=== PATIENT | female | born 1985 | race Caucasian/White ===

== ENCOUNTER 2017-12-05 06:55 | Inpatient (IN) | payer OTHER, SELFPAY ==
[2017-12-05 07:31] VITALS: BMI 29.5
[2017-12-05] MEDS: Lactated Ringers 1,000 ML 50 ML IV ×3 (07:35→14:35)
[2017-12-05] MEDS: Oxytocin 30 units/NS 500 ml 30 UNITS/500 ML IV.SOLN IV (07:45)
[2017-12-05 08:18] LABS: Hemoglobin 10.4 g/dl (12.0-15.0); Mean Corp Hgb Conc 31.5 g/gl (32-36); Mean Corpuscular Hgb 27.3 pg (27.0-32.0); Mean Corpuscular Volume 86.6 fL (81-99); Mean Platelet Vol. 10.4 fl (6.2-12.0); Platelet Count 201 K/mm3 (150-450); RBC Distribution Width CV 14.3 % (11.6-14.6); RBC Distribution Width SD 44.7 fl (35.1-43.9); Red Blood Count 3.81 M/mm3 (4.2-5.4); White Blood Count 7.1 K/mm3 (4.4-11.0)
[2017-12-05 08:23] LABS: Scan Indicated on CBC? Y/N NO
--- NOTE | 2017-12-05 11:38 | PCM.HP.OB ---
History Date of Admission: 12/05/17 Final RODGER: 12/07/17 Final RODGER Source: US <20 weeks Gestational age: 39 Weeks and 5 Days Pertinent Past Medical History: Past medical history: Necrotizing enterocolitis in Chronic diarrhea Surgical history: Bowel surgery as an after her necrotizing enterocolitis Obstetrical history: 3 previous full-term spontaneous vaginal deliveries without complication Allergies cephalexin [From Keflex] Allergy (Verified 12/05/17 07:34) Rash Current Medications Acetaminophen (Tylenol) 325 - 650 mg PO Q4H PRN PRN PRN Reason: PAIN OR FEVER >100.4F Al Hydroxide/Mg Hydroxide (Mylanta Ii) 15 - 30 ml PO Q4H PRN PRN PRN Reason: INDIGESTION Citric Acid/Sodium Citrate (Bicitra) 30 ml PO UD PRN Lactated Ringer's () 1,000 mls @ 50 mls/hr IV .Q20H [facility] Last Admin: 12/05/17 07:35 Dose: 50 mls/hr Oxytocin/Sodium Chloride () 30 units in 500 mls @ 1 mls/hr IV .Q500H [facility] Last Admin: 12/05/17 07:45 Dose: 1 mls/hr Nalbuphine HCl (Nubain) 5 - 10 mg IV Q3H PRN PRN PRN Reason: PAIN (4-10/10) Ondansetron HCl (Zofran) 4 mg IV Q8H PRN PRN PRN Reason: NAUSEA Promethazine HCl (Phenergan (Ll)) 6.25 - 12.5 mg IV Q4H PRN PRN; Protocol PRN Reason: IF NAUSEA PERSISTS Sodium Chloride () 5 - 15 ml IV UD [facility] Last Admin: 12/05/17 10:23 Dose: Not Given Smoking Status: Former smoker Alcohol: None Drug Use: none Number of Fetus(es): 1 Review of Systems Constitutional: Denies: Chills, Fever Eyes: Denies: Blurred vision Cardiovascular: Denies: Chest Pain Respiratory: Denies: Cough Skin: Reports: Rash - resolving Physical Exam General: Alert, Cooperative, No apparent distress Cardiovascular: Regular rate Lungs: Normal air movement Abdomen: Soft, Non Tender, Non-Distended, Gravid Extremities:: No edema Estimated gestational size: Appropriate for gestational size Presentation: Cephalic Cervix Dilation (cm): 2 - arom w/ small clear fluid Station: -1 Effacement (%): 80 Assessment/Plan The 2-year-old 4 para 3 at 39-5/7 weeks gestation for elective induction of labor. 1. Risks benefits and alternatives to induction been discussed with the patient, her questions were answered to her satisfaction, and she desires to proceed. Consent was signed. 2. Estimated weight is less than 4500 g the pelvis is clinically adequate to expect vaginal delivery 3. May have epidural, nitrous oxide, or Nubain as needed for pain control
--- NOTE | 2017-12-05 11:49 | HP.PCM_ITS ---
History Date of Admission: 12/05/17 Final RODGER: 12/07/17 Final RODGER Source: US <20 weeks Gestational age: 39 Weeks and 5 Days Pertinent Past Medical History: Past medical history: Necrotizing enterocolitis in Chronic diarrhea Surgical history: Bowel surgery as an after her necrotizing enterocolitis Obstetrical history: 3 previous full-term spontaneous vaginal deliveries without complication Allergies cephalexin [From Keflex] Allergy (Verified 12/05/17 07:34) Rash Current Medications Acetaminophen (Tylenol) 325 - 650 mg PO Q4H PRN PRN PRN Reason: PAIN OR FEVER >100.4F Al Hydroxide/Mg Hydroxide (Mylanta Ii) 15 - 30 ml PO Q4H PRN PRN PRN Reason: INDIGESTION Citric Acid/Sodium Citrate (Bicitra) 30 ml PO UD PRN Lactated Ringer's () 1,000 mls @ 50 mls/hr IV .Q20H [facility] Last Admin: 12/05/17 07:35 Dose: 50 mls/hr Oxytocin/Sodium Chloride () 30 units in 500 mls @ 1 mls/hr IV .Q500H [facility] Last Admin: 12/05/17 07:45 Dose: 1 mls/hr Nalbuphine HCl (Nubain) 5 - 10 mg IV Q3H PRN PRN PRN Reason: PAIN (4-10/10) Ondansetron HCl (Zofran) 4 mg IV Q8H PRN PRN PRN Reason: NAUSEA Promethazine HCl (Phenergan (Ll)) 6.25 - 12.5 mg IV Q4H PRN PRN; Protocol PRN Reason: IF NAUSEA PERSISTS Sodium Chloride () 5 - 15 ml IV UD [facility] Last Admin: 12/05/17 10:23 Dose: Not Given Smoking Status: Former smoker Alcohol: None Drug Use: none Number of Fetus(es): 1 Review of Systems Constitutional: Denies: Chills, Fever Eyes: Denies: Blurred vision Cardiovascular: Denies: Chest Pain Respiratory: Denies: Cough Skin: Reports: Rash - resolving Physical Exam General: Alert, Cooperative, No apparent distress Cardiovascular: Regular rate Lungs: Normal air movement Abdomen: Soft, Non Tender, Non-Distended, Gravid Extremities:: No edema Estimated gestational size: Appropriate for gestational size Presentation: Cephalic Cervix Dilation (cm): 2 - arom w/ small clear fluid Station: -1 Effacement (%): 80 Assessment/Plan The 2-year-old 4 para 3 at 39-5/7 weeks gestation for elective induction of labor. 1. Risks benefits and alternatives to induction been discussed with the patient , her questions were answered to her satisfaction, and she desires to proceed. Consent was signed. 2. Estimated weight is less than 4500 g the pelvis is clinically adequate to expect vaginal delivery 3. May have epidural, nitrous oxide, or Nubain as needed for pain control
[2017-12-05] MEDS: fentaNYL-bupivacaine (epidural) 100 ML BAG EPIDURAL (14:25)
[2017-12-05] MEDS: Oxytocin 30 units/NS 500 ml 30 UNITS/500 ML IV.SOLN 334 UNITS IV (19:02)
--- NOTE | 2017-12-05 19:18 | PCM.OB.VAG ---
Vaginal Delivery Maternal Presentation: Elective Induction Method of Induction: Pitocin, Amniotomy Amniotic Membrane Rupture Type: Artificial Amniotic Fluid Description: Clear Final RODGER: 12/07/17 Final RODGER Source: US <20 weeks Gestational age: 39 Weeks and 5 Days Date of Procedure: 12/05/17 Pre-Operative Diagnosis: labor Post-Operative Diagnosis: same Surgery/ Procedure Performed: Spontaneous Vaginal Delivery Anesthesiologist: Gumaro Del Rio Type of Anesthesia: Epidural Description of Procedure: A vigorous female was delivered LEMUEL over intact perineum. The remainder the infant was delivered with maternal pushing and gentle traction only in less than 15 seconds. The Pitocin infusion was initiated for active management of the third stage. The cord was clamped and cut after 1 minute. The infant was attended to by the waiting nursing staff. The placenta was delivered spontaneously and intact. The cervix and vagina were intact. Sponge and needle counts were correct. A vaginal sweep was completed by me. Presentation: LEMUEL Placental Delivery Description: Spontaneous Placenta Disposition: [facility] Cord Vessel Description: 3 Vessels Cord Entanglement: None Drain: Uriostegui to straight drain Estimated Blood Loss: 200cc Infant A gender: Female (1 minute): 9 (5 minute): 9 Episiotomy Description: None Laceration: None Medications given after delivery: IV Pitocin Complications: None
--- NOTE | 2017-12-05 19:22 | DCINST_ITS ---
Discharge Diet: No Restrictions Discharge Activity: Return to Normal Activity, May not drive while taking narcotic pain medications., May Shower May resume sexual activity in: 4-6 weeks Additional Activity Instructions:: Nothing in the vagina for 4-6 weeks. You may return to work/school in 6 weeks. Call your doctor if your incision/area has: Continuous Slow Oozing, Sudden Increased Bleeding, Increased Pain/ Swelling, Increased Redness, Foul Smelling Discharge Additional Instructions: If you experience any of the following, contact your healthcare provider. * Bleeding that soaks a pad every hour for 2 hours * Fever 100.4 or higher * Unrelieved incision or abdominal pain * Swelling, redness, discharge or bleeding from your incision or episiotomy site * Your incision begins to separate * Problems urinating (including inability to urinate or burning while urinating) . * Visual changes * Severe headache * Flu-like symptoms * Pain or redness in one of both of your breasts * Pain, warmth, tenderness or swelling in your legs, especially the calf area * Frequent nausea and vomiting * Symptoms of depression or anxiety If you experience any of the following, call 911 or go to the nearest Emergency Room. * Chest pain * Problems breathing * Seizure activity * Partial or complete paralysis of a body part, slurred speech, weakness or drooping of the face, or a sudden inability to walk or hold your balance Allergies/Adverse Reactions: Allergies cephalexin [From Keflex] Allergy (Verified 12/05/17 07:34) Rash Medications to take at Discharge Vits [Prenatabs FA ] 1 tablet PO DAILY 04/15/15 Amoxicillin/Potassium Clav [Amox-Clav 875-125 mg Tablet] 12/05/17 Ibuprofen [Motrin] 600 mg PO Q6H PRN #60 tab 12/05/17 The following prescriptions were given: Ibuprofen [Motrin] 600 mg PO Q6H PRN #60 tab PRN Reason: Pain Please Follow Up With: Daina Kauffman MD - [phone] When: Call to make an appointment with your doctor in 6 weeks. If you had elevated Blood Pressure or 4th degree laceration you will need to be seen in 2 weeks. Primary Care Physician: Care Physician,No Primary [Primary Care Provider] -
[2017-12-05] MEDS: Oxytocin 30 units/NS 500 ml 30 UNITS/500 ML IV.SOLN 167 UNITS IV (19:32)
[2017-12-05] MEDS: Amox/Clavulanate 875 MG Tablet PO (21:56)
[2017-12-05 22:00] VITALS: BP 109/56; PULSE 82; RESP 18; TEMP 37.3
[2017-12-06] MEDS: Naproxen 250 MG Tablet PO ×3 (00:22→17:49)
[2017-12-06 04:00] VITALS: BP 102/61; PULSE 64; RESP 18; TEMP 37.1
[2017-12-06 07:55] VITALS: BP 107/64; PULSE 64; RESP 16; TEMP 37.4
[2017-12-06] MEDS: Amox/Clavulanate 875 MG Tablet PO ×2 (09:48→21:09)
--- NOTE | 2017-12-06 12:36 | PCM.PN.OB ---
Subjective: Doing well per patient in nursing staff. without issues. Ambulating and taking PO without difficulty. Voiding and having BM. Denies headache, visual changes, chest pain, shortness of breath, leg pain, increased vaginal bleeding or blood clots. Planning D/C home today. - Physical Exam General: Alert Lungs: Clear to auscultation, No rhonchi, No wheeze Cardiovascular: Regular rate, Regular Rhythm, No murmurs Abdomen: Bowel Sounds Present, - - Fundus firm 2 below U Extremities: - - Nolberto's negative Psych/Mental Status: Normal Affect, Appropriate Vital Signs Temp Pulse Resp BP 99.4 F H 64 16 107/64 12/06/17 07:55 12/06/17 07:55 12/06/17 07:55 12/06/17 07:55 Oxygen Delivery Method Room Air Weight: 183 lb Body Mass Index (BMI) 29.5 Intake and Output for Last 24 Hours 12/04/17 12/05/17 12/06/17 23:59 23:59 23:59 Intake Total 3506 / 3506 Output Total 900 / 900 Balance 2606 / 2606 Medical Necessity - Tobacco Use Smoking Status: Former smoker Assessment/Plan A: PPD#1 P: 1) Discharge and instructions given 2) D/C home today 3) Follow up in 6 weeks
[2017-12-06 13:00] VITALS: BP 104/72; PULSE 72; RESP 16; TEMP 37.2
[2017-12-06 17:00] VITALS: BP 107/53; PULSE 63; RESP 16; TEMP 37.3
[2017-12-06 20:00] VITALS: BP 105/62; PULSE 65; RESP 18; TEMP 36.7
[2017-12-06] MEDS: Acetaminophen 500 MG Tablet 1000 MG PO (21:09)
[2017-12-07] MEDS: Naproxen 250 MG Tablet PO (02:25)
[2017-12-07 03:08] VITALS: BP 118/68; PULSE 88; RESP 18; TEMP 36.7
[2017-12-07] MEDS: Acetaminophen 500 MG Tablet 1000 MG PO (08:09)
--- NOTE | 2017-12-07 08:12 | PCM.PN.OB ---
Subjective: pain well controlled, average lochia - Physical Exam General: Alert, Cooperative, No apparent distress Abdomen: Soft, Non-Distended Vital Signs Temp Pulse Resp BP 98.0 F 88 18 118/68 12/07/17 03:08 12/07/17 03:08 12/07/17 03:08 12/07/17 03:08 Oxygen Delivery Method Room Air Weight: 83.007 kg Body Mass Index (BMI) 29.5 Intake and Output for Last 24 Hours 12/05/17 12/06/17 12/07/17 23:59 23:59 23:59 Intake Total 3506 / 3506 Output Total 900 / 900 Balance 2606 / 2606 Medical Necessity - Tobacco Use Smoking Status: Former smoker Assessment/Plan PPD#2 doing well ready for d/c infant
[2017-12-07 08:28] VITALS: BP 102/64; PULSE 60; RESP 16; TEMP 37.2; O2SAT 98
== END 2017-12-07 09:35 | disposition home or self-care (01) | DRG 775 ==
PROVIDERS: Admitting Provider Obstetrics & Gynecology; Visit Provider Obstetrics & Gynecology
DX: O80 Encounter for full-term uncomplicated delivery (principal); Z37.0 Single live birth; Z87.891 Personal history of nicotine dependence; Z3A.39 39 weeks gestation of pregnancy
CPT/HCPCS: 59025; 59050; 85027; 86850; 86900; J7120

== ENCOUNTER 2020-08-23 13:25 | Day surgery (SDC) | payer OTHER, SELFPAY ==
[2019-07-29 13:31] VITALS: BMI 25.6
--- NOTE | 2020-08-21 16:26 | HP.PCM_ITS ---
History and Physical Date of Admission: 08/23/20 HPI: The patient is a 34 year old female presenting for pre-operative visit. She is scheduled for?Hysteroscopy D&C, for?menorrhagia on?08/23/20. ??Procedure discussed along with risks, benefits and complications. ?Other alternatives discussed for management. Consent form signed??Yes.? PAST MEDICAL HISTORY PAST MEDICAL HISTORY Diagnosis Date ? Anemia ? ? Chronic diarrhea ? ? ?attributed to bowel surgery in infancy. ? ? Necrotizing enterocolitis in 1986 ? ? PAST SURGICAL HISTORY PAST SURGICAL HISTORY Procedure Laterality Date ? PAST SURGICAL HISTORY OF ? 1986 ? BOWEL SURG INFANT, she had NEC ? ? CURRENT MEDICATIONS Current Outpatient Medications Medication Sig Dispense Refill ? Multivitamin capsule Take 1 capsule by mouth once daily. ? ? ? ferrous sulfate 325 mg (65 mg iron) tablet Take 325 mg by mouth daily with breakfast. ? ? ? tranexamic acid (LYSTEDA) 650 mg tablet Take 2 tablets by mouth three times daily as needed (heavy menstrual bleeding) for up to 5 days. 30 tablet 5 ? calcium carbonate/vitamin D3 (VITAMIN D-3 ORAL) Take by mouth. ? ? ? No current facility-administered medications for this visit.? ? ALLERGIES:?Augmentin [Amoxicillin-Pot Clavulanate] ? PERSONAL HISTORY:? SOCIAL HISTORY Social History ? Tobacco Use ? Smoking status: Former Smoker ? ? Years: 1.00 ? ? Types: Cigarettes ? ? Quit date: 02/28/2008 ? ? Years since quittin.4 ? Smokeless tobacco: Never Used Substance Use Topics ? Alcohol use: No ? ? Frequency: Monthly or less ? ? Drinks per session: 3 or 4 ? ? Binge frequency: Less than monthly ? ? Comment: occasional,NOT WHILE ? Drug use: No ? FAMILY HISTORY:? FAMILY HISTORY FAMILY HISTORY Problem Relation Age of Onset ? Heart Mother ? ? Thyroid Mother ? ? Diabetes Maternal Grandmother ? ? Heart Maternal Grandmother ? ? Hypertension Maternal Grandmother ? ? Seizures Sister ? ? other (Mentally Handicaped) Sister ? ? Breast Cancer Maternal Aunt ? ? REVIEW OF SYMPTOMS: GENERAL: denies fevers or chills ENDOCRINOLOGY: has not been on steroids Cardiology : denies palpitations or chest pain Respiratory: denies SOB or cough Hematology: denies history of prolonged bleeding or easy bruising or VTE Allergy: Denies history of personal or family history of allergy to anesthesia ? ? PHYSICAL EXAMINATION: ? VITALS:?Last menstrual period 07/18/2020, currently . ? GENERAL:??The patient is well nourished, well hydrated in no acute distress. ?, The patient is oriented to time, place, and person. NECK:?Supple. No lynphadenopathy, normal thyroid, no thyromegaly. LUNGS:?Clear to auscultation bilaterally. no wheezes, rhonchi or rales HEART:?Regular rate and rhythm, Normal heart sounds and No murmurs or gallops ? IMPRESSION:?preop, menorrhagia ? PLAN:???.The risks/benefits/alternatives and personal involved for the planned?hysteroscopy D&C?were reviewed with the patient. Her questions were answered to her satisfaction and she desires to proceed. ?Consent was signed. ?I reviewed with her postop instructions and expectations. ? ? ? I have reviewed and updated past medical and surgical history, medications and allergies? This H&P was completed in my office on 08/21/2020. Procedure Criteria Procedure Type: Elective COVID Risk Discussion: The surgeon/proceduralist and patient have discussed in detail the risk of exposure to and/or potential harm posed by the COVID-19 virus with having a surgery/procedure at this time versus the risk of delaying the surgery/procedur e. It is not possible to know either the risk of delaying the surgery or procedure or chance of getting an infection with perfect accuracy, but a joint decision was made between the patient and the surgeon/proceduralist to proceed at this time with the scheduled surgery/procedure as indicated on the consent form.
[2020-08-23] VITALS (7 sets, daily range): BP systolic 99–107; BP diastolic 56–76; PULSE 52–69; RESP 16–18; TEMP 36.8–37.4; O2SAT 97–100; BMI 25.0
--- NOTE | 2020-08-23 | EMB_PTH ---
PATIENT: SMITA SERRATO LOC: [facility] [place] U#:[id number] AGE/SX: 34/F ROOM: RE08/23/[address]: Dr. Daina Kauffman MD : 1985 BED: DIS: 08/23/2020 SPEC #: [id number] RECD: 08/24/20 08:46 STATUS: KRISTINA LISHA #: [id number] TRAV: 08/23/20 00:[address]: Daina Kauffman DEPT: SURGICAL PATHOLOGY RECD BY: Raj Dickson ENTERED: 08/24/20 10:30 SP TYPE: ENDOM BX/C YAHAIRA DR: Yasmin Primary Care Phys Tissues: Endometrium, NOS Procedures: Surgery Specimen Level IV HEADER OPERATION: Hysteroscopy, dilation and curettage PRE-OP DIAGNOSIS: Menorrhagia TISSUE SUBMITTED: Endometrial curettings MICROSCOPIC DIAGNOSIS Endometrium, curettings: Proliferative endometrium with focal glandular breakdown. Rare fragment of benign squamous mucosa. AM:velvet 08/27/20 MICROSCOPIC DESCRIPTION Slides are reviewed. GROSS DESCRIPTION Received in fixative is one container labeled with the patient's name and designated endometrial curettings. The specimen consists of multiple irregular fragments of light to dark gore soft tissue that in aggregate measure 5.5 x 3 x 0.2 cm. The specimen is totally submitted in two cassettes. / AM:velvet 08/24/20 TC:5 CPT: 66014
[2020-08-23 14:22] LABS: Internal QC Validated? YES +Cl - CLEAR BKGD
[2020-08-23 14:24] LABS: Pregnancy, Urine Negative Negative
[2020-08-23] MEDS: Celecoxib 200 MG Capsule 400 MG PO (14:24)
[2020-08-23] MEDS: Acetaminophen 500 MG Tablet 1000 MG PO (14:24)
[2020-08-23] MEDS: Lactated Ringers 1,000 ML 40 ML IV ×2 (14:39→15:45)
--- NOTE | 2020-08-23 15:11 | DCINST_ITS ---
Discharge Diet: No Restrictions Discharge Activity: Return to Normal Activity, May Shower, May Take a Tub Bath - in 2 weeks. May shower in (days): 1 May resume sexual activity in: 1 week Call your doctor if your incision/area has: Sudden Increased Bleeding, Foul Smelling Discharge Call your doctor if you observe: Fever of 101 or Higher, Using more than one pad per hour - for 2 hrs in a row Allergies/Adverse Reactions: Allergies cephalexin [From Keflex] Allergy (Verified 08/23/20 14:13) Rash Medications to take at Discharge Ibuprofen [Motrin] 600 mg PO Q6H PRN #60 tab 12/05/17 Ergocalciferol (Vitamin D2) [Vitamin D2] 50,000 unit PO QWEEK 08/17/20 Ferrous Sulfate 325 mg PO DAILY 08/17/20 Mv-Min/Iron/Folic/Calcium/Vitk [Women's Multivitamin Tablet] 1 ea PO DAILY 08/17/20 Tranexamic Acid [Lysteda] 650 mg PO PRN PRN 08/17/20 Primary Care Physician: Care Physician,No Primary [Primary Care Provider] - Test Results: Test results from this visit will be discussed in further detail at your follow- up appointment, if applicable. Please Follow Up With: Daina Kauffman MD - [phone] When: as needed. Our office will call you next week with your pathology
[2020-08-23] MEDS: Lidocaine 1% /Epi 1:100 (20ml) 20 ML Vial (15:16)
--- NOTE | 2020-08-23 15:28 | PCM.OPRPT ---
Report of Operation Date of Procedure: 08/23/20 Pre-Operative Diagnosis: menorrhagia Post-Operative Diagnosis: same Surgery/Procedure Performed:: hysteroscopy dilation and curettage Description of Surgical Findings:: normal cervix and vagina, lush endometrium inventory management specialist: Cathleen Lozano ms3 Type of Anesthesia:: MAC/Supplemental/Local Anesthesiologist: Bhavana French Special Medications: none Specimen's removed: endometrial curettings Drains: none Estimated Blood Loss (mL): 10 Fluids Replaced: 900cc Description of Procedure: The patient was taken to the OR where she was prepped and draped in dorsal lithotomy position. The weighted speculum was placed in the vagina and the anterior lip of the cervix was grasped with a single-tooth tenaculum. A paracervical block was administered with 1% lidocaine with 1-100,000 epinephrine solution. The cervix was dilated serially with Hegar dilators. The 5mm hysteroscope was placed into the uterine cavity and the above findings were noted. Bilateral tubal ostia were identified. The hysteroscope was removed. A gentle sharp curettage was done of the uterine cavity. The instruments were removed from the vagina. The specimen was handed off and sent to pathology. All sponge and needle counts were correct. Vaginal sweep was performed by me. The patient was awakened and taken to the recovery room in stable condition. Hysteroscopic ins: 150cc normal saline Hysteroscopic outs:100cc Findings: Endometrial cavity: No polyps or fibroids noted. Very lush ragged endometrium. After the curettage normal endometrial cavity is noted. Cervix: Normal Vagina: Normal Start time: 1516 STop Time: 1528 Grafts/Implants Used: none - Complications none - Admit VTE Documentation VTE Present on Admission: No VTE Mechan Device Prophylaxis: SCD's VTE Pharm Prophylaxis ordered?: No Reason prophylaxis not ordered:: Procedure Not Indicated
== END 2020-08-23 16:40 | disposition home or self-care (01) ==
LOC: SDC 13:25 → AC 13:31
PROVIDERS: Anesthesiology; Referring Provider Obstetrics & Gynecology; Visit Provider Obstetrics & Gynecology
PROC: 0UDB8ZZ Extraction of Endometrium, Via Natural or Artificial Opening Endoscopic (ICD-10-PCS; CPT 58558; principal; 2020-08-23 14:50)
DX: N92.0 Excessive and frequent menstruation with regular cycle (principal); D64.9 Anemia, unspecified; Z87.891 Personal history of nicotine dependence; Z20.828 Contact with and (suspected) exposure to other viral communicable diseases
CPT/HCPCS: 00952; 58558; 81025; 87426; 88305; J7120; J2405

== ENCOUNTER → 2020-11-07 | Outpatient (CLI) | payer OTHER, SELFPAY | END | disposition home or self-care (01) | PROVIDERS: Visit Provider Physician Assistant | DX: Z11.59 Encounter for screening for other viral diseases (principal) | CPT/HCPCS: 87635; U0005; U0003 ==

== ENCOUNTER 2021-04-18 06:01 | Day surgery (SDC) | payer OTHER, SELFPAY ==
--- NOTE | 2021-04-10 13:42 | HP.PCM_ITS ---
History and Physical Date of Admission: 04/18/21 HPI: The patient is a 35 year old female presenting for pre-operative visit. She is scheduled for hysteroscopy with endometrial ablation and IUD insertion, for menorrhagia and contraception on 04/18/21. Procedure discussed along with risks, benefits and complications. Other alternatives discussed for management. Consent form signed? Yes. ? ? PAST MEDICAL HISTORY PAST MEDICAL HISTORY Diagnosis Date ? Anemia ? ? Chronic diarrhea ? ? attributed to bowel surgery in infancy. ? Necrotizing enterocolitis in 1986 ? ? PAST SURGICAL HISTORY PAST SURGICAL HISTORY Procedure Laterality Date ? DILATION AND CURRETAGE ? 08/23/2020 ? hysteroscopy D&C at [facility] ? PAST SURGICAL HISTORY OF ? 1986 ? BOWEL SURG , she had NEC ? ? ? CURRENT MEDICATIONS Current Outpatient Medications Medication Sig Dispense Refill ? Multivitamin capsule Take 1 capsule by mouth once daily. ? ? ? ferrous sulfate 325 mg (65 mg iron) tablet Take 325 mg by mouth daily with breakfast. ? ? ? tranexamic acid (LYSTEDA) 650 mg tablet Take 2 tablets by mouth three poncho es daily as needed (heavy menstrual bleeding) for up to 5 days. 30 tablet 5 ? No current facility-administered medications for this visit. ? ? ALLERGIES: Augmentin [Amoxicillin-Pot Clavulanate] ? PERSONAL HISTORY: SOCIAL HISTORY Social History ? Tobacco Use ? Smoking status: Former Smoker ? ? Years: 1.00 ? ? Types: Cigarettes ? ? Quit date: 02/28/2008 ? ? Years since quittin.1 ? Smokeless tobacco: Never Used Vaping Use ? Vaping Use: Never used Substance Use Topics ? Alcohol use: No ? ? Comment: occasional,NOT WHILE ? Drug use: No ? FAMILY HISTORY: FAMILY HISTORY FAMILY HISTORY Problem Relation Age of Onset ? Heart Mother ? ? Thyroid Mother ? ? Diabetes Maternal Grandmother ? ? Heart Maternal Grandmother ? ? Hypertension Maternal Grandmother ? ? Seizures Sister ? ? other (Mentally Handicaped) Sister ? ? Breast Cancer Maternal Aunt ? ? ? REVIEW OF SYMPTOMS: GENERAL: denies fevers or chills ENDOCRINOLOGY: has not been on steroids Cardiology : denies palpitations or chest pain Respiratory: denies SOB or cough Hematology: denies history of prolonged bleeding or easy bruising or VTE Allergy: Denies history of personal or family history of allergy to anesthesia ? PHYSICAL EXAMINATION: ? VITALS: Last menstrual period 03/08/2021. ? GENERAL: The patient is well nourished, well hydrated in no acute distress. , The patient is oriented to time, place, and person. NECK: Supple. No lynphadenopathy, normal thyroid, no thyromegaly. LUNGS: Clear to auscultation bilaterally. no wheezes, rhonchi or rales HEART: Regular rate and rhythm, Normal heart sounds and No murmurs or gallops GENITALIA: Normal external genitalia, Urethral meatus normal, Bladder nontender, normal vagina and normal vaginal tone, normal cervix, normal uterus, size and consistency, normal adnexa without masses or tenderness and perineum WNL WET PREP: Not indicated ? IMPRESSION: Menorrhagia and contraception ? PLAN: The risks/benefits/alternatives and personal involved for the planned hysteroscopy with IUD insertion and endometrial ablation were reviewed with the patient. Her questions were answered to her satisfaction and she desires to proceed. Consent was signed. I reviewed with her postop instructions and expectations. ? ? I have reviewed and updated past medical and surgical history, medications and allergies Assessment & Plan Assessment/Plan (1) Menorrhagia: (2) Encounter for IUD insertion: (3) Contraception management:
[2021-04-18] MEDS: Celecoxib 200 MG Capsule 400 MG PO (06:50)
[2021-04-18] MEDS: Acetaminophen 500 MG Tablet 1000 MG PO (06:50)
[2021-04-18] MEDS: Scopolamine 1mg/72hr Patch 1 PATCH TD (06:51)
[2021-04-18] MEDS: Lactated Ringers 1,000 ML 100 ML IV (06:52)
[2021-04-18 06:54] VITALS: BP 116/69; PULSE 80; RESP 18; TEMP 36.7; O2SAT 100; BMI 24.6
[2021-04-18 06:54] LABS: Hematocrit 38.5 % (37-47); Hemoglobin 13.1 g/dL (12.0-15.0); Mean Corpuscular Hgb 31.5 pg (27.0-32.0); Mean Corpuscular Volume 92.5 fL (81-99); Mean Platelet Vol. 9.8 fl (6.2-12.0); Platelet Count 196 K/mm3 (150-450); RBC Distribution Width CV 11.4 % (11.6-14.6); Red Blood Count 4.16 M/mm3 (4.2-5.4)
[2021-04-18 06:55] LABS: Internal QC Validated? YES +Cl - CLEAR BKGD; Pregnancy, Urine Negative Negative
--- NOTE | 2021-04-18 07:47 | PCM.DC ---
Discharge Instructions Diet Discharge Diet: No restrictions Activity May resume sexual activity in: 2 weeks Lifting Restrictions: none Dressing / Incision Call your doctor if your incision/area has: Sudden Increased Bleeding and Foul Smelling Discharge Call your doctor if you observe: Fever of 101 or Higher and Using more than 1 pad per hour (for 2 hrs in a row) Follow Up Care Please Follow Up With: Daina Kauffman MD When: 2-4 weeks or as needed. Call [phone] to make an appointment or with any concerns. Test Results: Test results from this visit will be discussed in further detail at your follow-up appointment, if applicable. Discharge Plan Admission Primary Reason for Your Visit: endometrial ablation Attending Provider: Daina Kauffman Primary Care Provider: Care Physician,Yasmin Primary Discharge Orders/Prescriptions Prescriptions: Continued ferrous sulfate 325 MG tablet 325 mg PO DAILY RF: 0 fd-on-edix-FA-Ca carb-vit K 1 EACH tablet 1 ea PO DAILY RF: 0 cyanocobalamin (vitamin B-12) 1,000 mcg Lozenge 1,000 mcg PO DAILY RF: 0 Referrals / Follow Up: Care Physician,No Primary [Primary Care Provider] - Disposition Disposition (needs filled in before D/C Order can be placed): Home, Self Care
[2021-04-18] MEDS: Lidocaine 1% /Epi 1:100 (50ml) 50 ML VIAL (07:50)
[2021-04-18] MEDS: Lubricating Jelly 60 GM Tube 30 GM TOPICAL (07:50)
--- NOTE | 2021-04-18 08:02 | PCM.OPRPT ---
Problems Associated Problem List Diagnoses (1) Menorrhagia: (2) Encounter for IUD insertion: (3) Contraception management: Report of Operation Date of Procedure: 04/18/21 Pre-Operative Diagnosis: menorrhagia Post-Operative Diagnosis: same Surgery/Procedure Performed:: Hysteroscopy with Katalina endometrial ablation and Mirena IUD insertion Description of Surgical Findings:: normal uterus tubes and ovaries, normal endometrium Surgeon: Daina Kauffman echo vascular technologist: None Type of Anesthesia: MAC/Supplemental/Local Anesthesiologist: Jamaal Chawla Special Medications: none Specimen's removed: none Drains: none Estimated Blood Loss (mL): 10 Fluids Replaced: 600 Description of Procedure: The patient was taken to the OR where she was prepped and draped in dorsal lithotomy position. The weighted speculum was placed in the vagina and the anterior lip of the cervix was grasped with a single-tooth tenaculum. A paracervical block was administered with 1% lidocaine with 1-100,000 epinephrine solution. The cervix was dilated serially with Hegar dilators. The 5mm hysteroscope was placed into the uterine cavity and the above findings were noted. Bilateral tubal ostia were identified. The hysteroscope was removed. The uterine cavity sounded to 8 cm. The cervical length was 3 cm. The Katalina device was set to 5 cm. The Katalina device was seated into the uterus in the usual fashion and opened to the green. It passed all safety tests. Ablation cycle was initiated and completed without interruption. The instrument was removed from the vagina. The Mirena IUD was readied and inserted into the uterus in the usual sterile fashion. The strings were trimmed to 2 cm. All sponge and needle counts were correct. Vaginal sweep was performed by me. The patient was awakened and taken to the recovery room in stable condition. Hysteroscopic ins: 100cc normal saline Hysteroscopic outs:50cc Findings: Endometrial cavity: Normal, no fibroids or polyps noted Cervix: Normal Vagina: Normal Grafts/Implants Used: Mirena IUD Procedure Start Time: 07:50 Procedure Stop Time: 08:00 Complications none Admit VTE Documentation VTE Present on Admission: No VTE Mechan Device Prophylaxis: SCD's VTE Pharm Prophylaxis ordered?: No Reason prophylaxis not ordered:: Procedure Not Indicated
[2021-04-18 08:10] VITALS: BP 103/75; BP 116/69; PULSE 88; RESP 18; TEMP 35.9; O2SAT 98
[2021-04-18 08:15] VITALS: BP 116/69; BP 116/73; PULSE 91; RESP 18; O2SAT 95
[2021-04-18 08:20] VITALS: BP 115/71; BP 116/69; PULSE 78; RESP 18; O2SAT 97
[2021-04-18 08:30] VITALS: BP 116/69; BP 122/78; PULSE 63; RESP 18; TEMP 36.6; O2SAT 97
[2021-04-18 09:02] VITALS: BP 116/69
== END 2021-04-18 09:17 | disposition home or self-care (01) ==
LOC: SDC 06:01 → AC 06:02
PROVIDERS: Referring Provider Obstetrics & Gynecology; Visit Provider Obstetrics & Gynecology
PROC: 0U5B8ZZ Destruction of Endometrium, Via Natural or Artificial Opening Endoscopic (ICD-10-PCS; CPT 58558; principal; 2021-04-18 07:15)
DX: N92.0 Excessive and frequent menstruation with regular cycle (principal); Z30.430 Encounter for insertion of intrauterine contraceptive device; Z87.891 Personal history of nicotine dependence; Z20.822 Contact with and (suspected) exposure to COVID-19
CPT/HCPCS: 00952; 58300; 58563; 81025; 85027; 87426; C9803; J7120; J2405

== ENCOUNTER 2024-04-14 01:51 | Observation (INO) | payer OTHER, SELFPAY ==
[2024-04-14] VITALS (7 sets, daily range): BP systolic 92–117; BP diastolic 53–83; PULSE 55–79; RESP 14–16; TEMP 36.6–36.8; O2SAT 95–99; BMI 26.1; BMI 24.8
[2024-04-14] MEDS: 0.9% Normal Saline (1000mL) 1,000 ML 150 ML IV (02:05)
--- NOTE | 2024-04-14 02:07 | CT_ITS ---
INDICATION: abd pain COMPARISON: None. IV Contrast dosage and agent: 75 cc Isovue-370 IV. A radiation dose optimization technique was used for this scan. RADIATION DOSAGE (If Supplied By Facility): CTDIvol/DLP = ( 13.33 ) / ( 670.17 ) mGy/mGycm FINDINGS: Contrast enhanced serial CT axial images through the abdomen and pelvis with coronal and sagittal reformatted series. PANCREAS: No peripancreatic fat stranding. BOWEL/MESENTERY: Multiple dilated small bowel loops containing air-fluid levels as well as fecalization of contents, without transition point definitely localized, however, distal small bowel appears collapsed, suggesting bowel obstruction. No significant free fluid. No free air. GALLBLADDER: Cholelithiasis without pericholecystic fat stranding. LIVER/STOMACH: No obvious abnormality. URINARY COLLECTING SYSTEM/ KIDNEYS: No obstructing ureteral calculus. No significant renal parenchymal abnormality. UTERUS/ADNEXA: Prominent left ovarian likely follicles. APPENDIX: Appendix is not identified. LUNG BASES: Right lung base calcified granuloma. BONES: Unremarkable for age. CT/Abdomen/Pelvis W IV Cont ONLY IMPRESSION: Multiple dilated small bowel loops containing air-fluid levels as well as fecalization of contents, without transition point definitely localized, however, distal small bowel appears collapsed, suggesting bowel obstruction. Electronically Signed: Nishant Fermin MD at 3:18 EDT ,
[2024-04-14] MEDS: Ondansetron 4 MG/2 ML Vial IV (02:20)
[2024-04-14 02:27] LABS: Absolute Lymphocyte Count 1.67 X10^3/uL (0.83-4.51); Absolute Neutrophil Count 9.6 X10^3/uL (2.0-7.7); Basophil# 0.04 X10^3/uL; Basophil% 0.3 % (0-1); Eosinophil# 0.13 X10^3/uL; Eosinophils% 1.1 % (0-5); Hematocrit 43.4 % (37-47); Hemoglobin 14.9 g/dL (12.0-15.0); Lymphocyte # 1.67 X10^3/ul (0.83-4.51); Lymphocyte % 13.9 % (19-41); Mean Corp Hgb Conc 34.3 g/dL (32-36); Mean Corpuscular Hgb 31.6 pg (27.0-32.0); Mean Corpuscular Volume 91.9 fL (81-99); Mean Platelet Vol. 10.1 fl (6.2-12.0); Monocyte# 0.51 X10^3/uL; Monocyte% 4.3 % (0-10); NRBC Flagged by Analyzer 0 % (0-5); Neutrophil % 80.1 % (47-70); Platelet Count 216 K/mm3 (150-450); RBC Distribution Width CV 11.2 % (11.6-14.6); Red Blood Count 4.72 M/mm3 (4.2-5.4)
--- NOTE | 2024-04-14 02:27 | EDS_ITS ---
HPI History of Present Illness Chief Complaint: Abd Pain Informant: patient Onset/Context/Timing Onset: Yesterday Narrative Narrative: Patient present secondary abdominal pain with nausea and vomiting. She states s he developed abdominal pain around 4 PM yesterday evening. She states the pain initially started in the right lower quadrant but is now diffuse. She developed nausea and vomiting around 11 PM last evening. She does not believe she has had a fever. She last ate around 3 PM but others who ate the same meal as her did not get ill. Patient has a history of NEC as an infant. She had a colostomy that was reversed years ago. She denies possibility of . [facility] Medical History Wears contact lenses Alcohol use Low iron Easy bruising History of chronic diarrhea Former smoker History of edema Home Medications ?Medication ?Instructions ?Recorded ?Last Taken ?Type NK 04/14/24 Unknown History Allergy/AdvReac Type Severity Reaction Status Date / Time cephalexin (From Keflex) Allergy Rash Verified 04/14/24 01:52 Surgical History History of colostomy reversal History of colostomy History of hysteroscopy Social History Smoking Status: Former smoker ROS ROS ED Constitutional Constitutional ED: Denies chills or fever(s) Eyes Eyes: Denies discharge from eye(s) ENT ENT ED: Denies discharge from eye(s), rhinorrhea or sore throat Cardiovascular Cardiovascular: Denies chest pain or palpitations Respiratory/Chest Respiratory/Chest: Denies cough or dyspnea Gastrointestinal Gastrointestinal: Reports abdominal pain, nausea, vomiting and other Details: Chronic diarrhea, unchanged from baseline. No bloody stools. Genitourinary Genitourinary ED: Denies difficulty urinating or dysuria Musculoskeletal Musculoskeletal: Denies back pain or extremity pain Integumentary Denies Abrasions or rash Neurologic Neurologic: Denies headache(s) or weakness Psychiatric Psychiatric: Denies anxiety or depression Allergic/Immunologic Allergic/Immunologic ED: Denies lip swelling or urticaria EXAM Physical Exam Const Vital Signs: 04/14/24 01:51 04/14/24 03:51 Temperature 98 F Temperature Source Temporal Pulse Rate 79 59 L Respiratory Rate 16 16 Blood Pressure 113/77 117/83 H Blood Pressure Mean 89 94 Pulse Ox 98 99 Oxygen Delivery Method Room Air Positive well nourished and well developed General Appearance ED: well developed HEENT Reports moist mucous membranes Eyes EOMs intact bilaterally Chest Wall inspection of chest normal and palpation of chest normal Resp normal respiratory effort and clear to auscultation bilaterally Cardio regular rate and regular rhythm GI GI Narrative: Abdomen soft with moderate diffuse tenderness palpation. Extremity normal to inspection Neuro oriented x3 and no sensory deficits noted Motor Exam: strength 5/5 throughout Psych mental status grossly normal Skin no rashes or lesions noted MDM MDM MDM Narrative Medical decision making narrative: IV line initiated. Patient declines anything for pain but does ask for nausea medication. She will be given a dose of Zofran. Labwork obtained to evaluate for leukocytosis, anemia, and electrolyte derangement. Urinalysis obtained to evaluate for infection/hematuria. CT scan of the abdomen pelvis with IV contrast obtained to evaluate for ovarian cyst, appendicitis, colitis, bowel perforation. History & Record Review Discussion w/independent historian: Patient Lab Data Attestation: I reviewed the patient's lab results. Labs: Laboratory Results - last 24 hr 04/14/24 02:21 WBC 12.0 H RBC 4.72 Hgb 14.9 Hct 43.4 MCV 91.9 MCH 31.6 MCHC 34.3 RDW Std Deviation 38.0 RDW Coeff of Darrell 11.2 L Plt Count 216 MPV 10.1 Immature Gran % (Auto) 0.300 Neut % (Auto) 80.1 H Lymph % (Auto) 13.9 L [place] % (Auto) 4.3 Eos % (Auto) 1.1 Baso % (Auto) 0.3 Absolute Neuts (auto) 9.6 H Absolute Lymphs (auto) 1.67 Nucleated RBC % 0 Sodium 138 Potassium 4.2 Chloride 104 Carbon Dioxide 27.0 Anion Gap 7 BUN 12 Creatinine 0.82 Estim Creat Clear Calc 92.95 Est GFR (MDRD) Af Amer 101 Est GFR (MDRD) Non-Af 84 BUN/Creatinine Ratio 14.7 Glucose 127 H Calcium 10.3 H Total Bilirubin 0.60 Direct Bilirubin 0.14 AST 13 L ALT 16 Alkaline Phosphatase 54 Total Protein 8.4 H Albumin 4.5 Globulin 3.9 Lipase 16 Serum , Qual NEGATIVE Radiography Diagnostic Testing: Clinical Impression(s) from Imaging Studies Abdomen/Pelvis CT 04/14/24 02:07 IMPRESSION: Multiple dilated small bowel loops containing air-fluid levels as well as fecalization of contents, without transition point definitely localized, however, distal small bowel appears collapsed, suggesting bowel obstruction. Electronically Signed: Nishant Fermin MD at 3:18 EDT , Treatment and Re-Evaluation :: CBC with a white count of 12 with 80% neutrophils. Hemoglobin is 14.9. Chemistry studies remarkable only for glucose of 127. LFTs are unremarkable and lipase is normal. test negative. CT scan of the abdomen pelvis with IV contrast reveals multiple dilated small bowel loops containing air-fluid levels without a transition point, however distal small bowel is collapsed could consistent with a bowel obstruction. Test results discussed with patient and spouse at bedside. At this time she is in agreement to accept Toradol for pain but does not want narcotics. I spoke with Dr. Sweet. He does ask that we go ahead and put in an NG tube and he will be in to see the patient for admission. Discharge Plan Triage Chief Complaint: Abd Pain ED Provider: Halina Santo Dx/Rx/DC Orders Clinical Impression: SBO (small bowel obstruction) Prescriptions: No Action NK Primary Care Provider: Care Physician,No Primary Referrals: Care Physician,No Primary [Primary Care Provider] - Print Language: French Disposition Disposition: Acute Care Hospital [facility]
[2024-04-14 02:39] LABS: Internal QC Validated? YES +Cl - CLEAR BKGD; Pregnancy, Serum, hCG Quali. NEGATIVE Negative
[2024-04-14 02:49] LABS: AST(SGOT) 13 U/L (15-37); Alanine Aminotransfer ALT/SGPT 16 U/L (13-56); Albumin, Serum 4.5 g/dL (3.2-5.0); Alkaline Phosphatase 54 U/L (45-117); Anion Gap 7 (5-15); BUN 12 mg/dL (7-18); BUN/Creat Ratio 14.7 RATIO (10-20); Bilirubin, Direct 0.14 mg/dL (0.00-0.30); Calcium,Total 10.3 mg/dL (8.5-10.1); Chloride 104 mmol/L (98-107); Creatinine, Serum 0.82 mg/dL (0.55-1.02); EST Glomerular Filtration Rate 84 mL/min (>60); Est Glom Filt Rate - Afr Amer 101 mL/min (>60); Estimated Creatinine Clearance 92.95 ml/min; Globulin 3.9 g/dL (2.2-4.2); Glucose 127 mg/dL (74-106); Lipase 16 U/L (13-75); Potassium 4.2 mmol/L (3.5-5.1); Protein, Total 8.4 g/dL (6.4-8.2); Sodium Level 138 mmol/L (136-145)
[2024-04-14 04:04] LABS: Bacteria 0 SEEN /hpf (None Seen); Mucous, Urine 0 SEEN /hpf (<or=2+); Red Blood Cells-Urine 0 SEEN /hpf (0-5); Squamous Epithelial Cells - UA 0 SEEN /hpf (5-10); White Blood Cells 0 SEEN /hpf (0-5)
[2024-04-14 04:05] LABS: Color, Urine Yellow (Yellow); Glucose, Dipstick Normal (Normal); Ketone-Dipstick Negative (Negative); Leukocyte Esterase-Dipstick 25 /ul (Negative); Nitrite-Dipstick Negative (Negative); Occult Blood-Urine Negative /ul (Negative); Protein-Dipstick 15 mg/dl (Negative); Urine Bilirubin Dipstick Negative (Negative); Urine Clarity Clear (Clear); Urine Urobilinogen 1 mg/dl (Normal)
[2024-04-14] MEDS: Ketorolac 15 MG/ML Vial IV ×3 (04:08→17:00)
--- NOTE | 2024-04-14 04:17 | RAD_ITS ---
INDICATION: NG Insertion COMPARISON: Abdominal CT same day. FINDINGS: Single frontal view of the abdomen. Enteric tube tip overlies left upper quadrant, likely proximal stomach. Again noted multiple dilated small bowel loops, ileus versus bowel obstruction. No obvious free air. No definite suspicious calcifications. No mass appreciated. Contrast within bilateral urinary collecting systems from recent CT. RAD/Abdomen Single View (Portable) IMPRESSION: Enteric tube tip overlies left upper quadrant, likely proximal stomach. Again noted multiple dilated small bowel loops, ileus versus bowel obstruction. Electronically Signed: Nishant Fermin MD at 6:07 EDT ,
[2024-04-14] MEDS: Oxymetazoline 0.05% 1 SPRAY SPRAY.BTL 2 SPRAY NASAL (04:38)
[2024-04-14] MEDS: Phenol/Sodium Phenolate 180ML 3 SPRAY MUCOUS MEM (05:26)
--- NOTE | 2024-04-14 06:54 | HP.PCM_ITS ---
HPI - General General Date of Admission: 04/14/24 Chief Complaint: Acute onset abdominal pain with associated nausea and vomiting HPI Narrative SMITA SERRATO, is a 38 F who presents to [facility] with complaints of acute onset abdominal pain at approximately 4 PM yesterday. She shares that she then went to bed early with the pain but was awoken out of sleep and began with nausea and vomiting at approximately 11:30 PM. Vomitus was nonbilious. 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 Given her symptoms she decided to seek evaluation. ER evaluation was notable for mild leukocytosis of 12,000. CT imaging of the abdomen pelvis was obtained showing evidence of small bowel obstruction with air-fluid levels and fecalization of the small bowel. 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 She is status post ostomy reversal and notes that she is done well for years without complications. She does share that frequent loose stools are normal for her and estimates her average to be somewhere between 6-8 stools per day. She also shares that she is unable to eat lunch throughout the day because she would not otherwise have time to use the restroom thereafter. She denies any other history of short gut syndrome but does remark that she was told she may have some vitamin deficiencies around the time of her last 6 years ago. [facility] Medical History Wears contact lenses Alcohol use Low iron Easy bruising History of chronic diarrhea Former smoker History of edema Home Medications ?Medication ?Instructions ?Recorded ?Last Taken ?Type NK 04/14/24 Unknown History Allergy/AdvReac Type Severity Reaction Status Date / Time cephalexin (From Keflex) Allergy Rash Verified 04/14/24 01:52 Surgical History History of colostomy reversal History of colostomy History of hysteroscopy Social History Smoking Status: Former smoker Vital Signs Vital Signs Vital Signs: 04/14/24 01:51 04/14/24 03:51 04/14/24 05:00 Temperature 98 F Temperature Source Temporal Pulse Rate 79 59 L Respiratory Rate 16 16 16 Blood Pressure 113/77 117/83 H 101/70 Blood Pressure Mean 89 94 80 Pulse Ox 98 99 98 Oxygen Delivery Method Room Air Room Air 04/14/24 05:22 Temperature 98.3 F Temperature Source Pulse Rate 60 Respiratory Rate 16 Blood Pressure 101/70 Blood Pressure Mean 80 Pulse Ox 99 Oxygen Delivery Method Weight Weight: 156 lb 15.506 oz Body Mass Index (BMI) 26.1 Physical Exam Const alert, oriented x3 and no apparent distress General Appearance: cooperative HEENT HEENT Narrative: Nasogastric tube in place draining gastric contents Resp normal respiratory effort GI GI Narrative: Minimally distended, well-healed transverse scar crease in the upper abdomen, soft, mild tenderness palpation of the right abdominal quadrants Results Lab / Micro Data 04/14/24 02:21 04/14/24 02:21 Labs: Laboratory Results - last 24 hr 04/14/24 02:21: WBC 12.0 H, RBC 4.72, Hgb 14.9, Hct 43.4, MCV 91.9, MCH 31.6, MCHC 34.3, RDW Std Deviation 38.0, RDW Coeff of Darrell 11.2 L, Plt Count 216, MPV 10.1, Immature Gran % (Auto) 0.300, Neut % (Auto) 80.1 H, Lymph % (Auto) 13.9 L, [place] % (Auto) 4.3, Eos % (Auto) 1.1, Baso % (Auto) 0.3, Absolute Neuts (auto) 9.6 H, Absolute Lymphs (auto) 1.67, Nucleated RBC % 0, Sodium 138, Potassium 4.2, Chloride 104, Carbon Dioxide 27.0, Anion Gap 7, BUN 12, Creatinine 0.82, Estim Creat Clear Calc 92.95, Est GFR (MDRD) Af Amer 101, Est GFR (MDRD) Non-Af 84, BUN/Creatinine Ratio 14.7, Glucose 127 H, Calcium 10.3 H, Total Bilirubin 0.60, Direct Bilirubin 0.14, AST 13 L, ALT 16, Alkaline Phosphatase 54, Total Protein 8.4 H, Albumin 4.5, Globulin 3.9, Lipase 16, Serum , Qual NEGATIVE 04/14/24 03:57: Urine Color Yellow, Urine Clarity Clear, Urine pH 8.0, Ur Specific [place] 1.010, Urine Protein 15 H, Urine Glucose (UA) Normal, Urine Ketones Negative, Urine Occult Blood Negative, Urine Nitrite Negative, Urine Bilirubin Negative, Urine Urobilinogen 1 H, Ur Leukocyte Esterase 25 H, Urine RBC 0 SEEN, Urine WBC 0 SEEN, Ur Squamous Epith Cells 0 SEEN, Urine Bacteria 0 SEEN, Urine Mucus 0 SEEN Imaging Radiology Impression Abdomen/Pelvis CT 04/14/24 02:07 IMPRESSION: Multiple dilated small bowel loops containing air-fluid levels as well as fecalization of contents, without transition point definitely localized, however, distal small bowel appears collapsed, suggesting bowel obstruction. Electronically Signed: Nishant Fermin MD at 3:18 EDT , KUB X-Ray 04/14/24 04:17 IMPRESSION: Enteric tube tip overlies left upper quadrant, likely proximal stomach. Again noted multiple dilated small bowel loops, ileus versus bowel obstruction. Electronically Signed: Nishant Fermin MD at 6:07 EDT , Assessment & Plan Assessment/Plan (1) SBO (small bowel obstruction): PLAN: Patient is a 38-year-old female who presents with signs and symptoms of acute small bowel obstruction. She has a remote history of necrotizing enterocolitis status post bowel resection and ostomy reversal as an infant. She has never experienced a small bowel obstruction to this point, but her CT imaging is reviewed and consistent with this process. She shares that she has altered bowel habits, normally, and reports a frequency of 6-8 stools per day. Combining this with patient's CT imaging and her reports of some vitamin deficiencies around the time of her I do suspect she may have an element of short gut syndrome. I have described to her the implications for this in the setting of a bowel obstruction that is not successfully managed conservatively and specifically discussed the use of total parenteral nutrition perioperatively and how lower capabilities in this facility are limited. Patient confirms understanding but states that she is convinced this is not a true obstruction and does not have any leanings at this time is to whether or not she would request a tertiary referral if conservative measures were to fail. For now we will plan to admit with IV fluids, continue NG tube to low intermittent wall suction and plan for small bowel follow-through to begin at noon. Sony Sweet MD General Surgery Endocrine Surgery Pager: [facility] [address] [place] [address], [facility], [address] [place] [address] Office: [phone] Charges/Coding Visit Charges Inpatient E&M: 52725 Init Hosp L2
[2024-04-14] MEDS: 0.9% Normal Saline (1000mL) 1,000 ML 125 ML IV ×3 (09:06→23:55)
[2024-04-14] MEDS: 0.9% Saline Lock 10 ML Syringe IV (11:03)
--- NOTE | 2024-04-14 12:25 | RAD_ITS ---
STUDY: MODIFIED GASTROGRAFIN SMALL BOWEL FOLLOW-THROUGH EXAMINATION. REASON FOR EXAM: Female, 38 years old. F/u SBO -- Films: Immediately post GG, 6 h, 12 h, and 24h TECHNIQUE: A mixture of 120 mL of Gastrografin and water was placed through the indwelling nasogastric tube. Imaging was provided. COMPARISON: None. FINDINGS: On the 4 hour image, contrast is seen throughout the colon down to the rectum. RAD/Small Bowel Series Only IMPRESSION: On the 4 hour image, contrast is seen within the entire colon and rectum. Electronically Signed: Ulices Loya MD at 8:54 EDT ,
--- NOTE | 2024-04-14 14:01 | CASEMGMT ---
OR[place]O PASTOR Assessment: Face to Face with pt for initial transition planning/care coordination assessment. [place] PASTOR introduced self and role at [facility], pt voices understanding and consents to assessment. Pt is A&O x4 and answers all questions appropriately at this time. Care providers, pharmacy, and demographics verified/updated. Strata: 1 Admitting Dx: SBO PCP: No PCP, provided list of local PCP's Specialists: Denies Preferred Pharmacy: [facility] Insurance: MMO Prescription Benefit: yes LNOK: Damian, Living Arrangements: Pt lives with and 4 kids at home. ADLs: Pt states I with ADLs and IADLs. Transportation: Pt drives self and denies concerns with transportation. DME: Denies HHC/SNF: Denies Pt states no concerns with going home at time of dc. Pt states no further concerns/needs. CM to follow. Advised pt to ask CM if any further question/concerns/needs arise, voices understanding. Pt Goal: Home Plan: Home, will follow plan of care. Ezequiel PERRY CM
--- NOTE | 2024-04-15 00:44 | NURSING ---
Patient does not want scheduled Toradol at this time. She will let this RN know if she wants it later tonight.
[2024-04-15 03:26] VITALS: BP 96/53; PULSE 55; RESP 16; TEMP 36.9; O2SAT 96
[2024-04-15 07:13] LABS: Absolute Lymphocyte Count 2.15 X10^3/uL (0.83-4.51); Absolute Neutrophil Count 2.9 X10^3/uL (2.0-7.7); Basophil# 0.02 X10^3/uL; Basophil% 0.4 % (0-1); Eosinophil# 0.12 X10^3/uL; Eosinophils% 2.2 % (0-5); Hematocrit 35.2 % (37-47); Hemoglobin 11.6 g/dL (12.0-15.0); Lymphocyte # 2.15 X10^3/ul (0.83-4.51); Lymphocyte % 39.2 % (19-41); Mean Corpuscular Hgb 31.8 pg (27.0-32.0); Mean Corpuscular Volume 96.4 fL (81-99); Mean Platelet Vol. 10.2 fl (6.2-12.0); Monocyte# 0.33 X10^3/uL; NRBC Flagged by Analyzer 0 % (0-5); Neutrophil # 2.85 X10^3/uL (2.7-7.7); Platelet Count 152 K/mm3 (150-450); RBC Distribution Width CV 11.3 % (11.6-14.6); RBC Distribution Width SD 39.9 fl (35.1-43.9); Red Blood Count 3.65 M/mm3 (4.2-5.4); White Blood Count 5.5 K/mm3 (4.4-11.0)
--- NOTE | 2024-04-15 07:33 | PCM.PN.SRG ---
Subjective Subjective Patient seen and examined during AM rounds. She reports that she is feeling better overall. She shares that her abdominal pain seems to have shifted to the left side overnight, however, presently she is not having as much discomfort. She also confirms that she is feeling better now than she was when she came into the ER. She has had an additional 5 or so loose bowel movements. She denies an appetite, but immediately goes on to qualify that she does not routinely eat breakfast or lunch normally. Objective Data Objective Data Vital Signs: Vital Signs Temp Pulse Resp BP Pulse Ox O2 Del Method 98.4 F 55 L 16 96/53 L 96 Room Air 04/15/24 03:26 04/15/24 03:26 04/15/24 03:26 04/15/24 03:04/15/24 03:04/15/24 03:26 Oxygen Delivery Method Room Air Weight: 151 lb 10.848 oz Body Mass Index (BMI) 24.8 Intake & Output: Intake and Output for Last 24 Hours 04/13/24 04/14/24 04/15/24 23:59 23:59 23:59 Intake Total 4040.83 / 6540.83 2500 / 2500 Output Total 650 / 750 100 / 100 Balance 3390.83 / 5790.83 2400 / 2400 Lab / Micro Data 04/15/24 06:56 04/14/24 02:21 Labs: Laboratory Results - last 24 hr 04/15/24 06:56: WBC 5.5, RBC 3.65 L, Hgb 11.6 L, Hct 35.2 L, MCV 96.4, MCH 31.8, MCHC 33.0, RDW Std Deviation 39.9, RDW Coeff of Darrell 11.3 L, Plt Count 152, MPV 10.2, Immature Gran % (Auto) 0.200, Neut % (Auto) 52.0, Lymph % (Auto) 39.2, [place] % (Auto) 6.0, Eos % (Auto) 2.2, Baso % (Auto) 0.4, Absolute Neuts (auto) 2.9, Absolute Lymphs (auto) 2.15, Nucleated RBC % 0 Physical Exam Const oriented x3 and no apparent distress Resp normal respiratory effort GI GI Narrative: Decreased abdominal distention, soft, mildly tender to palpation in the right upper quadrant?otherwise benign Assessment & Plan Assessment/Plan (1) SBO (small bowel obstruction): PLAN: Patient is a 38-year-old female who presents with signs and symptoms of acute small bowel obstruction. She is hospital day 2 for conservative management of the above issue. She appears to have passed her small bowel follow-through without difficulty and took it upon herself to discontinue her NG tube immediately after Gastrografin administration. She has had multiple bowel movements overnight and appears to be tolerating a clear liquid diet. She does note some shifting abdominal discomfort but I suspect that is related to the contrast load transiting her GI tract. It is still difficult to determine if this represents resolution of a partial small bowel obstruction or a infectious ileus based on her report. Her abdomen is largely benign today. Despite her denying an appetite I would like to see her try diet advancement and see if she is able to tolerate this advancement before she would consider discharge home. She is eager to be discharged home so she is agreeable. Will reassess patient after this trial. Sony Sweet MD General Surgery Endocrine Surgery Pager: [facility] [address] [place] [address], [address] [place] [address] Office: [phone] Charges/Coding Visit Charges Inpatient E&M: 40606 [facility] Hosp L2
[2024-04-15 07:45] LABS: Anion Gap 3 (5-15); BUN 13 mg/dL (7-18); BUN/Creat Ratio 21.4 RATIO (10-20); Calcium,Total 8.3 mg/dL (8.5-10.1); Chloride 113 mmol/L (98-107); Creatinine, Serum 0.61 mg/dL (0.55-1.02); EST Glomerular Filtration Rate 117 mL/min (>60); Est Glom Filt Rate - Afr Amer 142 mL/min (>60); Estimated Creatinine Clearance 123.03 ml/min; Glucose 83 mg/dL (74-106); Magnesium 2.1 mg/dL (1.6-2.6); Phosphorus 2.5 mg/dL (2.5-4.9); Potassium 3.8 mmol/L (3.5-5.1); Sodium Level 141 mmol/L (136-145)
[2024-04-15 07:49] VITALS: BP 101/70; PULSE 57; RESP 16; TEMP 36.6; O2SAT 99
[2024-04-15] MEDS: 0.9% Normal Saline (1000mL) 1,000 ML 125 ML IV (07:54)
[2024-04-15] MEDS: Pantoprazole Sodium 40 MG in 0.9% Normal Saline (100mL MB+) 100 ML 330 MG IV (11:21)
[2024-04-15 12:00] VITALS: BP 96/61; PULSE 51; RESP 16; TEMP 36.7; O2SAT 98
--- NOTE | 2024-04-15 15:24 | CASEMGMT ---
Social Work- SW met with pt to discuss advance directives.? Pt confirms she has completed a living will and health care POA naming , Damian.? Pt notified that documents are not on file at [facility] and SW requested they be brought in for scanning into the EMR.? NORBERTO Snyder
--- NOTE | 2024-04-15 15:46 | CHAPLAIN ---
Type of Pastoral Visit _x__ Initial Visit ___ Follow-up Visit ___ On-call Visit ___ General Patient Visit ___ Spiritual Assessment ___ Family Conference ___ Bereavement ___ Rapid Response ___ Code Blue ___ Other (describe below) Pastoral Care Referral From _x__ Patient ___ Family ___ Nurse ___ Physician ___ Shirt Turner ___ Fire Suppression Captain ___ Other (describe below) Sacrament/Intervention ___ Active listening ___ Anointing ___ Holiness ___ Bereavement ___ Communion ___ Dorothy exploration ___ ___ Life review ___ Prayer ___ Reconciliation ___ Sacrament of Sick ___ Supportive presence ___ Wedding ___ Other (describe below) Pastoral Comments patient only answers questions and does not engage in conversation; family members are in the room including her young children; interacted with spouse and children to seek how this experience is going for them; offer of presence and support; pt and spouse indicate that they are doing fine and have no needs at this point
--- NOTE | 2024-04-15 16:30 | RAD_ITS ---
STUDY: X-RAY - ABDOMEN/PELVIS REASON FOR EXAM: Female, 38 years old. Abdominal pain and distention TECHNIQUE: Two AP supine views of the abdomen and pelvis. COMPARISON: 04/14/2024 FINDINGS: Normal visualized lung bases. Previously noted oral contrast from a small bowel follow-through has cleared suggesting there is no obstruction present. Bowel gas pattern suggests both small bowel and colonic ileus, there has been overall improvement compared to yesterday''s study. There is no demonstrated free abdominal air. The visualized liver, spleen and kidneys are grossly normal in size and morphology. Normal soft tissue structures. Normal visualized osseous structures. RAD/Abdomen Single View IMPRESSION: No evidence to suspect obstruction as the previously noted Gastrografin/oral contrast has cleared Persistent small and large bowel ileus, there has been overall improvement compared to yesterday''s study Electronically Signed: Mal Ortiz MD at 17:40 EDT ,
--- NOTE | 2024-04-15 17:56 | DCINST_ITS ---
Discharge Instructions Diet Discharge Diet: - (Full liquid diet) Dressing / Incision Call your doctor if you observe: Inability to have a bowel movement, Uncontrolled pain and - (Intractable nausea and vomiting) Follow Up Care Please Follow Up With: Sony Sweet MD When: 2 weeks Test Results: Test results from this visit will be discussed in further detail at your follow- up appointment, if applicable. Discharge Plan Admission Admit Date/Time: 04/14/24 06:55 Primary Reason for Your Visit: Ileus versus partial small bowel obstruction Attending Provider: Sony Sweet Primary Care Provider: Care Physician,No Primary Instructions Additional Instructions / Restrictions: Patient instructed to keep to a full liquid diet for 1 week post hospitalization Discharge Orders/Prescriptions Prescriptions: No Action NK Referrals / Follow Up: Sony Sweet MD [Med Staff - Active Staff] - Care Physician,No Primary [Primary Care Provider] - Disposition Disposition (needs filled in before D/C Order can be placed): Home, Self Care
--- NOTE | 2024-04-15 17:59 | PCM.DC.SUM ---
Providers Date of Admission: 04/14/24 Primary Care Physician: No Primary Care Phys Reason For Visit: SBO Diagnosis Discharge Diagnosis (1) SBO (small bowel obstruction): Status: Acute Code(s): K56.609 - Unspecified intestinal obstruction, unspecified as to partial versus complete obstruction Plan: Patient is a 38-year-old female who presents with signs and symptoms of acute small bowel obstruction. She is hospital day 2 for conservative management of the above issue. She appears to have passed her small bowel follow-through without difficulty and took it upon herself to discontinue her NG tube immediately after Gastrografin administration. She has had multiple bowel movements overnight and appears to be tolerating a clear liquid diet. She does note some shifting abdominal discomfort but I suspect that is related to the contrast load transiting her GI tract. It is still difficult to determine if this represents resolution of a partial small bowel obstruction or a infectious ileus based on her report. Her abdomen is largely benign today. Despite her denying an appetite I would like to see her try diet advancement and see if she is able to tolerate this advancement before she would consider discharge home. She is eager to be discharged home so she is agreeable. Will reassess patient after this trial. Sony Sweet MD General Surgery Endocrine Surgery Pager: [facility] [address] [place] [address], [address] [place] [address] Office: [phone] Medications at Discharge Home Medications NK 04/14/24 Hospital Course Operations None Procedures - (Small bowel follow-through) Summary of Care Provided Hospital Course: Patient is a 38-year-old female who presented on 04/14/2024 with signs and symptoms of small bowel obstruction. With this diagnosis a nasogastric tube was placed in the emergency department and patient was admitted to [facility] for conservative measures. A conversation was held even prior to admission, however, that patient may require transfer to a tertiary center if she would ultimately fail conservative measures and require surgery given a strong suspicion for a chronic malabsorptive state and possible true short gut syndrome with her history of treatment of necrotizing enterocolitis as an . Patient was administered Gastrografin contrast via an NG tube for a small bowel follow-through and then promptly removed the nasogastric tube herself due to irritation. She was counseled repeatedly by both nursing staff and myself to try to have patient's and trust the methodology. Ultimately Mrs. Chu was successful in having a bowel movement and she thus was advanced to a liquid diet yesterday. She tolerated this advance with out nausea or vomiting. She did describe ongoing migratory abdominal discomfort. Given her tolerance of this diet advancement she was advanced further to a transitional diet and again tolerated this advancement but described persistent migratory abdominal discomfort. Her laboratories remained within normal limits. I thus discussed ongoing observation with her symptoms versus obtaining a KUB to see if there has been progression of her bowel gas pattern. Her KUB does show evidence of persistent dilation of the small bowel and colon which radiology read as favorable progression of a small bowel ileus. While I believe patient may have an underlying element of enteritis, I do suspect part of this presentation is chronic and we have no reference imaging to compare her exams to. Thus I recommended discharge to home with a prescription for a liquid diet x 1 week and offered her outpatient follow-up with me given that she has not yet established with a primary care provider. I also did underscore the need for her to look to establish such a relationship and potentially even be evaluated for her nutritional status. I shared with her the implications of not taking this seriously and potentially being faced with a obstruction in the future where she does not have the nutritional resources available to her that she requires due to her altered gut anatomy. Both she and her expressed understanding and appreciation of this information. Lastly, prior to discharge Red flag warning signs and return precautions were given. Physical Exam Const alert, oriented x3 and no apparent distress Resp normal respiratory effort GI GI Narrative: Nondistended, soft, mildly tender to palpation of the right upper and left lower quadrants Weight / BMI Weight Weight: 151 lb 10.848 oz Body Mass Index (BMI) 24.8 ABG / Lab / Microbiology Data 04/15/24 06:56 04/15/24 06:56 Laboratory: Laboratory Results - last 24 hr 04/15/24 06:56: WBC 5.5, RBC 3.65 L, Hgb 11.6 L, Hct 35.2 L, MCV 96.4, MCH 31.8, MCHC 33.0, RDW Std Deviation 39.9, RDW Coeff of Darrell 11.3 L, Plt Count 152, MPV 10.2, Immature Gran % (Auto) 0.200, Neut % (Auto) 52.0, Lymph % (Auto) 39.2, Crawford % (Auto) 6.0, Eos % (Auto) 2.2, Baso % (Auto) 0.4, Absolute Neuts (auto) 2.9, Absolute Lymphs (auto) 2.15, Nucleated RBC % 0, Sodium 141, Potassium 3.8, Chloride 113 H, Carbon Dioxide 25.0, Anion Gap 3 L, BUN 13, Creatinine 0.61, Estim Creat Clear Calc 123.03, Est GFR (MDRD) Af Amer 142, Est GFR (MDRD) Non-Af 117, BUN/Creatinine Ratio 21.4 H, Glucose 83, Calcium 8.3 L, Phosphorus 2.5, Magnesium 2.1 Radiography Diagnostic Testing: Radiology Impression Small Bowel X-Ray 04/14/24 12:25 IMPRESSION: On the 4 hour image, contrast is seen within the entire colon and rectum. Electronically Signed: Ulices Loya MD at 8:54 EDT , KUB X-Ray 04/15/24 16:30 IMPRESSION: No evidence to suspect obstruction as the previously noted Gastrografin/oral contrast has cleared Persistent small and large bowel ileus, there has been overall improvement compared to yesterday''s study Electronically Signed: Mal Ortiz MD at 17:40 EDT , D/C Instructions Discharge Diet: - (Full liquid diet) Call your doctor if you observe: Inability to have a bowel movement, Uncontrolled pain and - (Intractable nausea and vomiting) Please Follow Up With: Sony Sweet MD When: 2 weeks Meaningful Use Info Meaningful Use Meaningful Use Diagnoses (Choose all that apply): None applicable Ischemic Stroke Statin Dosing Therapy Reference: STATIN DOSE THERAPY REFERENCE: * Patients > 75 years receive moderate or high dose statin therapy. * Patients 75 years or YOUNGER should receive HIGH intensity statin dose unless contraindicated. You will be required to document reason for non-treatment if statin daily dose does not meet guidelines. HIGH DOSE STATIN THERAPY DAILY Atorvastatin > than or = to 40 mg Rosuvastatin > than or = to 20 mg Amlodipine + Atorvastatin > than or = to 2.5/40 mg Ezetimibe + Simvastatin 10/80 mg Simvastatin 80mg Discharge Plan Admission Admit Date/Time: 04/14/24 06:55 Primary Reason for Your Visit: Ileus versus partial small bowel obstruction Attending Provider: Sony Sweet Primary Care Provider: Care Physician,No Primary Instructions Additional Instructions / Restrictions: Patient instructed to keep to a full liquid diet for 1 week post hospitalization Discharge Orders/Prescriptions Prescriptions: No Action NK Referrals / Follow Up: Sony Sweet MD [Med Staff - Active Staff] - Care Physician,No Primary [Primary Care Provider] - Disposition Disposition (needs filled in before D/C Order can be placed): Home, Self Care Charges/Coding Visit Charges Inpatient E&M: 81552 Disch Hosp
[2024-04-15 18:00] VITALS: BP 98/62; PULSE 58; RESP 16; TEMP 36.6; O2SAT 99
== END 2024-04-15 18:14 | disposition home or self-care (01) ==
LOC: ED 04:19 → MS3 07:43
PROVIDERS: Admitting Provider Surgery; Emergency Provider Emergency Medicine; Referring Provider Surgery; Visit Provider Surgery
DX: K56.609 Unspecified intestinal obstruction, unspecified as to partial versus complete obstruction (principal); Z87.891 Personal history of nicotine dependence
CPT/HCPCS: 36415; 74018; 74177; 74250; 80048; 80076; 81001; 83690; 83735; 84100; 84703; 85025; 96361; 96365; 96375; 96376; 99221; 99285; J7030; Q9967; A4216; G0378; J2405

== ENCOUNTER → 2024-07-26 | Outpatient (CLI) | payer OTHER, SELFPAY ==
[2024-07-26 15:40] LABS: Absolute Lymphocyte Count 2.95 X10^3/uL (0.83-4.51); Absolute Neutrophil Count 3.7 X10^3/uL (2.0-7.7); Basophil# 0.02 X10^3/uL; Basophil% 0.3 % (0-1); Eosinophil# 0.15 X10^3/uL; Eosinophils% 2.1 % (0-5); Hematocrit 40.7 % (37-47); Hemoglobin 13.9 g/dL (12.0-15.0); Lymphocyte # 2.95 X10^3/ul (0.83-4.51); Lymphocyte % 40.9 % (19-41); Mean Corp Hgb Conc 34.2 g/dL (32-36); Mean Corpuscular Hgb 31.9 pg (27.0-32.0); Mean Corpuscular Volume 93.3 fL (81-99); Mean Platelet Vol. 10.2 fl (6.2-12.0); Monocyte# 0.36 X10^3/uL; NRBC Flagged by Analyzer 0 % (0-5); Neutrophil # 3.72 X10^3/uL (2.7-7.7); Neutrophil % 51.6 % (47-70); Platelet Count 195 K/mm3 (150-450); RBC Distribution Width CV 11.3 % (11.6-14.6); RBC Distribution Width SD 38.8 fl (35.1-43.9); Red Blood Count 4.36 M/mm3 (4.2-5.4); White Blood Count 7.2 K/mm3 (4.4-11.0)
[2024-07-26 16:07] LABS: Erythrocyte Sedimentation Rate 2 mm/hr (0-30)
[2024-07-26 16:09] LABS: Vitamin B12 346 pg/mL (211-911); Vitamin D,25 Hydroxy 32.7 ng/mL
[2024-07-26 16:37] LABS: ALB/GLOB Ratio 1.2 RATIO (0.9-2.4); AST(SGOT) 5 U/L (15-37); Alanine Aminotransfer ALT/SGPT 14 U/L (13-56); Albumin, Serum 4.4 g/dL (3.2-5.0); Alkaline Phosphatase 46 U/L (45-117); Anion Gap 7 (5-15); BUN 11 mg/dL (7-18); BUN/Creat Ratio 11.4 RATIO (10-20); CRP < 2.90 mg/L (0.0-3.0); Calcium,Total 9.2 mg/dL (8.5-10.1); Chloride 108 mmol/L (98-107); Creatinine, Serum 0.97 mg/dL (0.55-1.02); EST Glomerular Filtration Rate 69 mL/min (>60); Est Glom Filt Rate - Afr Amer 83 mL/min (>60); Globulin 3.6 g/dL (2.2-4.2); Glucose 87 mg/dL (74-106); LDH 141 U/L (84-246); Potassium 3.6 mmol/L (3.5-5.1); Sodium Level 137 mmol/L (136-145); Thyroid Stim Hormone (TSH) 0.764 uIU/mL (0.358-3.740)
--- OUTSIDE RECORDS SUMMARY | 2024-07-26 19:55 | XMS RPT_ITS | CCD ---
Author Organization [facility] Care Team Providers Care Automotive Finance Manager Name Role Phone Marija David Unavailable [phone] Donna, . Gela Kiya Attending Unavailable Yuan, Ms. Marija Oswald Attending Unav ailable Cutler, Ms. Marija Oswald Primary Care Unav ailable Yuan, MsJacque Oswald Attending Unav ailable Yuan, Ms. Marija Oswald Primary Care Unav ailable Cutler, Ms. Marija Oswald Primary Care Unav ailable Cutler, Ms. Marija Oswald Attending Unav ailable Cutler, Ms. Marija Oswald Primary Care Unav ailable Yuan, Ms. Marija Oswald Attending Unav ailable Yuan, Ms. Marija Oswald Primary Care Unav ailable Yuan, Ms. Marija Oswald Attending Unav ailable Yuan, Ms. Marija Oswald Referring Unav ailable Cutler, Ms. Marija Oswald Primary Care Unav ailable Dr. Jon Hill Attending Unavailable SARAHI DAVID Primary Care Dr. Enrico Walker Referring Unavailable Dr. Enrico Stovall Attending SARAHI Cavanaugh Primary Care TerrivaDr. Enrico Barry Attending Unavailable SARAHI DAVID Referring Unavai labSARAHI Frazier Attending TerrivaSARAHI Otero Primary Care Unavai labSARAHI Frazier Referring Unavai lable Unavailable Primary Care Provider Andrea Mack DO Primary Care Provider GRISELDA MCKINNEY Referring Unavailable ROSEANNANDREA Primary Care Unavailable RUTHGRISELDA ARTHUR Referring Unavailable ROSEANNANDREA Primary Care Unavailable GRISELDA MCKINNEY Attending Unavailable WHITFIELDANDREA FORDE Primary Care Unavailable GRISELDA MCKINNEY Referring Unavailable WHITFIELDANDREA Primary Care Unavailable RUTHGRISELDA ARTHUR Referring Unavailable ROSEANN ANDREA Gracia Primary Care Unavailable GRISELDA MCKINNEY Referring Unavailable WHITFIELDANDREA Primary Care Unavailable Allergies Allergy Classification Reported Allergen(s) Allergy Type Date of Onset Reaction(s) Facility (8 sources) Amoxicillin / Clavulanate; Translations: [AMOXICILLIN-POT CLAVULANATE] Drug Allergy 01-11-2018 [facility] Work Phone: (8 sources) Cephalexin; Translations: [CEPHALEXIN] Drug Allergy 04-18-2021 [facility] Work Phone: Medications Current Medications Medication Drug Class(es) Dates Sig (Normalized) Sig (Original) cyanocobalamin, vitamin B-12, (VITAMIN B-12 ORAL) (6 sources) cyanocobalamin, vitamin B-12, (VITAMIN B-12 ORAL) Take by mouth. Active cyanocobalamin, vitamin B-12, (VITAMIN B-12 ORAL) Take by mouth. 0 Active ferrous sulfate 325 mg oral tablet (17 sources) take 1 tablet by lis th once daily at breakfast ferrous sulfate 325 mg (65 mg iron) tablet Take 325 mg by mouth daily with breakfast. Active Multivitamin capsule (7 sources) take 1 capsule by mo uth once daily Multivitamin capsule Take 1 capsule by mouth once daily. Active take 1 capsule by mouth once emmy ly Multivitamin capsule Take 1 capsule by mouth once daily. 0 Active Completed/Discontinued Medications Medication Drug Class(es) Dates Sig (Normalized) Sig (Original) enteric contrast (will be provided with radiology test) (4 sources) Start: 04-20-2024 End: 04-21-2024 enteric contrast (will be provided with radiology test) Indications: Calculus of gallbladder without cholecystitis without obstruction , Periumbilic abdominal rigidity , RUQ pain , Abdominal right upper quadrant rigidity , Leukocytosis, unspecified type For CT ABD/PEL W IVCON Routine order Administer, As Directed One Time Only, via Oral, Rectal, both Oral and Rectal, Enteric Tube, Stoma or Indwelling Catheter, Enteric Contrast as designated per enteric contrast guidelines 1 Each 0 04/20/2024 04/21/2024 Start: 04-20-2024 End: 04-21-2024 enteric contrast (will be pr ovided with radiology test) Indications: Calculus of gallbladder without cholecystitis without obstruction , Periumbilic abdominal rigidity , RUQ pain , Abdominal right upper quadrant rigidity , Leukocytosis, unspecified type For CT ABD/PEL W IVCON Routine order Administer, As Directed One Time Only, via Oral, Rectal, both Oral and Rectal, Enteric Tube, Stoma or Indwelling Catheter, Enteric Contrast as designated per enteric contrast guidelines 1 Each 0 04/20/2024 04/21/2024 Active iv contrast (will be provide d with radiology test) (4 sources) Start: 04-20-2024 End: 04-21-2024 iv contrast (will be provide d with radiology test) Indications: Calculus of gallbladder without cholecystitis without obstruction , Periumbilic abdominal rigidity , RUQ pain , Abdominal right upper quadrant rigidity , Leukocytosis, unspecified type CT ABD/PEL -Inject, intravenously, once for 1 dose.No IV access, insert saline lock prior to the beginning of sedation, infusion, injection of imaging exam. Discontinue saline lock post exam. If Pt. has a central line or IVAD, may access for administration according to line specific nursing protocol. Once exam is complete flush line and de-access according to line specific nursing protocol in the CT contrast administration guidelines link. 1 Each 0 04/20/2024 04/21/2024 Start: 04-20-2024 End: 04-21-2024 iv contrast (will be provide d with radiology test) Indications: Calculus of gallbladder without cholecystitis without obstruction , Periumbilic abdominal rigidity , RUQ pain , Abdominal right upper quadrant rigidity , Leukocytosis, unspecified type CT ABD/PEL -Inject, intravenously, once for 1 dose.No IV access, insert saline lock prior to the beginning of sedation, infusion, injection of imaging exam. Discontinue saline lock post exam. If Pt. has a central line or IVAD, may access for administration according to line specific nursing protocol. Once exam is complete flush line and de-access according to line specific nursing protocol in the CT contrast administration guidelines link. 1 Each 0 04/20/2024 04/21/2024 Active medroxyPROGESTERone acetate 10 mg oral tablet (2 sources) Progestin Start: 08-05-2021 End: 04-20-2024 take 1 tablet by mouth once daily medroxyPROGESTERone (PROVERA) 10 mg tablet Indications: Dysfunctional uterine bleeding Take 1 tablet by mouth once daily. for 20 days a month 20 tablet 3 08/05/2021 04/20/2024 Discontinued Multivitamin Adult Oral Tablet (10 sources) take 1 tablet by mouth once daily Multivitamin Adult Oral Tablet TAKE 1 TABLET DAILY. Quantity: 0 Refills: 0 Ordered: 21-Apr-2022 DO Active Vitamin B12 TABS (10 sources) Vitamin B12 TABS occasional use Quantity: 0 Refills: 0 Ordered: 21-Apr-2022 DO Active Vitamin D TABS (10 sources) Vitamin D TABS T SETH 1 TABLET DAILY. Quantity: 0 Refills: 0 Ordered: 21-Apr-2022 DO Active Problems Active Problems Problem Classification Problem Date Documented Da te Episodic/Chronic Cardiac dysrhythmias (20 sources) Palpitations; Translations: [Palpitations] Onset: 07-02-2022 Episodic Conditions associated with dizziness or vertigo (20 sources) Dizziness; Translations: [Dizziness and giddiness] Episodic Diseases of white blood cells (5 sources) Leukocytosis; Translations: [Elevated white blood cell count, unspecified] Onset: 04-20-2024 04-20-2024 Chronic Malaise and fatigue (12 sources) Malaise and fatigue; Translations: [Other malaise and fatigue] Onset: 07-02-2022 Episodic Nutritional deficiencies (17 sources) Vitamin D deficiency; Translations: [Unspecified vitamin D deficiency] Onset: 01-06-2013 01-06-2013 Chronic Other gastrointestinal disorders (4 sources) Abdominal rigidity of periumbilical region; Translations: [Periumbilic abdominal rigidity] 04-20-2024 Episodic Other gastrointestinal disorders (4 sources) Abdominal rigidity of right upper quadrant; Translations: [Right upper quadrant abdominal rigidity] 04-20-2024 Episodic Other screening for suspected conditions (not mental disorders or infectious disease) (1 source) Encounter for screening for cardiovascular disorders; Translations: [Encounter for screening for cardiovascular disorders] Onset: 07-02-2022 Episodic Residual codes; unclassified (3 sources) Family history of ischemic heart disease and other diseases of the circulatory system; Translations: [Family hx of ischem heart dis and oth dis of the circ sys] Onset: 07-02-2022 Episodic Past or Other Problems Problem Classification Problem Date Documented Da te Episodic/Chronic Abdominal pain (5 sources) Right upper quadrant pain; Translations: [Right upper quadrant pain] Onset: 04-20-2024 04-20-2024 Episodic Biliary tract disease (5 sources) Cholelithiasis without obstruction; Translations: [Calculus of gallbladder without cholecystitis without obstruction] Onset: 04-20-2024 04-20-2024 Episodic Menstrual disorders (7 sources) Irregular periods; Translations: [Irregular menstruation, unspecified] Onset: 06-21-2007 Resolved: 12-08-2011 12-08-2011 Chronic Noninfectious gastroenteritis (7 sources) Chronic diarrhea; Translations: [Noninfective gastroenteritis and colitis, unspecified] Onset: 01-06-2013 Resolved: 10-18-2014 10-18-2014 Episodic Other gastrointestinal disorders (1 source) Periumbilic abdominal rigidity; Translations: [Periumbilic abdominal rigidity] Onset: 04-20-2024 Episodic Other gastrointestinal disorders (1 source) Right upper quadrant abdominal rigidity; Translations: [Abdominal right upper quadrant rigidity] Onset: 04-20-2024 Episodic Other conditions (1 source) necrotizing enterocolitis ; Translations: [Stage 3 necrotizing enterocolitis in ] Onset: 1985 04-26-2024 Episodic Other and delivery including normal (20 sources) Normal in primigravida; Translations: [Encounter for supervision of normal first , unspecified trimester] Onset: 04-14-2008 Resolved: 07-25-2020 09-06-2010 Episodic Viral infection (7 sources) Verruca vulgaris; Translations: [Viral wart, unspecified] Onset: 11-19-2009 Resolved: 12-08-2011 12-08-2011 Episodic Results Test Name Value Interpretation Reference Range Facility [facility] 07-20-2024 [facility] Telephone (FAMPWS) ----- SMITA CHU ([id number]) 1985 F Date Time Provider Department 07/20/24 ANDREA WHITFIELD During your visit today, we recorded the following information about you: Soham Donaldson LPN 07/20/2024 8:45 AM Signed Patient requested that Consult for Gastro be sent to [place]. Faxed as requested. Allergies As of Date: 07/20/2024 Noted Allergy Reaction AUGMENTIN (AMOXICILLIN-POT CLAVUL*01/11/2018 2 - Rash CEPHALEXIN 04/18/2021 2 - Rash Date Reviewed: 04/21/2024 Reviewed by: Uma Hunter, RT(R) - Partially Assessed Reason for Visit: FYI-No Action Needed [265] Prescriptions as of 07/20/2024 - cyanocobalamin, vitamin B-12, (VITAMIN B-12 ORAL) Take by mouth. - Multivitamin capsule Take 1 capsule by mouth once daily. - ferrous sulfate 325 mg (65 mg iron) tablet Take 325 mg by mouth daily with breakfast. Problem List As Of Date 07/20/2024 Noted Resolved Irregular menstrual cycle [N92.6] 06/21/2007 12/08/2011 Supervision of normal first [Z34.00] 04/14/2008 09/06/2010 Viral Wart: L ankle area [B07.9] 11/19/2009 12/08/2011 Supervision of other normal [Z34.80] 10/08/2010 12/08/2011 Vitamin d deficiency [E55.9] 01/06/2013 Chronic diarrhea [K52.9] 01/06/2013 10/18/2014 Supervision of other normal [Z34.80] 10/18/2014 06/19/2015 Encounter for supervision of normal [*04/29/2017 07/25/2020 Stage III necrotizing enterocolitis in *1985 Encounter Status:Closed by SOHAM DONALDSON on 07/20/24 Normal [facility] CT ABD/PEL W IVCONon 024 CT ABD/PEL W IVCON * * *Final Report* * * DATE OF EXAM: Apr 21 2024 10:11AM [facility] 0530 - CT ABD/PEL W IVCON / PROCEDURE REASON: multiple diagnoses * * * * Physician Interpretation * * * * EXAMINATION: CT ABDOMEN AND PELVIS WITH IV CONTRAST PATIENT/TECHNOLOGIST PROVIDED HISTORY: Hx mid abd pain, colon resection,hx ??? gall stones, ablation CLINICAL HISTORY: 38 years old Female with Calculus of gallbladder without cholecystitis without obstruction. Periumbilic abdominal rigidity. RUQ pain. Abdominal right upper quadrant rigidity. Abdominal pain, acute, nonlocalized TECHNIQUE: CT of the abdomen and pelvis was performed using standard technique, scanning from just above the dome of the diaphragm to the symphysis pubis. MQ: CTAP_3 Contrast: IV: 100 ml of Omnipaque 300 Oral: 10 ml of Omni 240 10-25ml diluted with water CT Radiation dose: Integrated Dose-length product (DLP) for this visit = 454 mGy*cm. CT Dose Reduction Employed: Automated exposure control(AEC) and iterative recon COMPARISON: None RESULT: Liver: No mass. Biliary: No bile duct dilation. Cholelithiasis. No gallbladder dilation or pericholecystic inflammatory change. Spleen: No mass. No splenomegaly. Pancreas: No mass or duct dilation. Adrenals: No mass. Kidneys: No mass, calculus or hydronephrosis. GI tract: No wall thickening. Right hemicolectomy with ileotransverse colonic anastomosis in the anterior mid abdomen. Patulous loop of small bowel in the LEFT lower quadrant likely related to prior postsurgical change. Few additional mildly dilated loops of small bowel in the LEFT abdomen measuring up to 3.3 cm likely due to peristalsis. Intraluminal contrast is seen within distal nondilated small bowel loops almost to the level of the neoterminal ileum. Lymph nodes: No abdominal or pelvic lymphadenopathy. Mesentery/Peritoneum: No ascites or mass. Retroperitoneum: No mass. Vasculature: - Abdominal aorta and iliac arteries: Patent and normal caliber. - Celiac and SMA: Patent without stenosis. - Portal venous system (SMV, splenic vein, portal vein and branches): Patent. - Hepatic veins: Patent. Pelvis: 2.2 cm peripheral enhancing cystic structure in the LEFT ovary suggestive of corpus luteum. Physiological amount of free fluid in the pelvis. No loculated fluid collection or mass. Bones/Soft Tissues: No significant finding. Lower thorax: Calcified granuloma RIGHT lower lobe. No consolidation. No pleural effusion. Localizer images: No additional findings. IMPRESSION: No acute process in the abdomen or pelvis. Cholelithiasis. Auto Service Representative: CIARA Transcribe Date/Time: Apr 21 2024 10:12A Dictated by : JOEL WAY DO This examination was interpreted and the report reviewed and electronically signed by: JOEL WAY DO on Apr 21 2024 10:28AM EST [id number] Normal [facility] CT Abdomen and Pelvis W cont rast Meena 04-21-2024 IMPRESSION: No acute process in the abdomen or pelvis. Cholelithiasis. Auto Service Representative: CIARA Transcribe Date/Time: Apr 21 2024 10:12A Dictated by : JOEL WAY DO This examination was interpreted and the report reviewed and electronically signed by: JOEL WAY DO on Apr 21 2024 10:28AM EST DIVISION OF RADIOLOGY * * *Final Report* * * DATE OF EXAM: Apr 21 2024 10:11AM [facility] 0530 - CT ABD/PEL W IVCON / PROCEDURE REASON: multiple diagnoses * * * * Physician Interpretation * * * * EXAMINATION: CT ABDOMEN AND PELVIS WITH IV CONTRAST PATIENT/TECHNOLOGIST PROVIDED HISTORY: Hx mid abd pain, colon resection,hx ??? gall stones, ablation CLINICAL HISTORY: 38 years old Female with Calculus of gallbladder without cholecystitis without obstruction. Periumbilic abdominal rigidity. RUQ pain. Abdominal right upper quadrant rigidity. Abdominal pain, acute, nonlocalized TECHNIQUE: CT of the abdomen and pelvis was performed using standard technique, scanning from just above the dome of the diaphragm to the symphysis pubis. MQ: CTAP_3 Contrast: IV: 100 ml of Omnipaque 300 Oral: 10 ml of Omni 240 10-25ml diluted with water CT Radiation dose: Integrated Dose-length product (DLP) for this visit = 454 mGy*cm. CT Dose Reduction Employed: Automated exposure control(AEC) and iterative recon COMPARISON: None RESULT: Liver: No mass. Biliary: No bile duct dilation. Cholelithiasis. No gallbladder dilation or pericholecystic inflammatory change. Spleen: No mass. No splenomegaly. Pancreas: No mass or duct dilation. Adrenals: No mass. Kidneys: No mass, calculus or hydronephrosis. GI tract: No wall thickening. Right hemicolectomy with ileotransverse colonic anastomosis in the anterior mid abdomen. Patulous loop of small bowel in the LEFT lower quadrant likely related to prior postsurgical change. Few additional mildly dilated loops of small bowel in the LEFT abdomen measuring up to 3.3 cm likely due to peristalsis. Intraluminal contrast is seen within distal nondilated small bowel loops almost to the level of the neoterminal ileum. Lymph nodes: No abdominal or pelvic lymphadenopathy. Mesentery/Peritoneum: No ascites or mass. Retroperitoneum: No mass. Vasculature: - Abdominal aorta and iliac arteries: Patent and normal caliber. - Celiac and SMA: Patent without stenosis. - Portal venous system (SMV, splenic vein, portal vein and branches): Patent. - Hepatic veins: Patent. Pelvis: 2.2 cm peripheral enhancing cystic structure in the LEFT ovary suggestive of corpus luteum. Physiological amount of free fluid in the pelvis. No loculated fluid collection or mass. Bones/Soft Tissues: No significant finding. Lower thorax: Calcified granuloma RIGHT lower lobe. No consolidation. No pleural effusion. Localizer images: No additional findings. DIVISION OF RADIOLOGY Provider, [facility] - 04/21/2024 * * *Final Report* * * DATE OF EXAM: Apr 21 2024 10:11AM [facility] 0530 - CT ABD/PEL W IVCON / PROCEDURE REASON: multiple diagnoses * * * * Physician Interpretation * * * * EXAMINATION: CT ABDOMEN AND PELVIS WITH IV CONTRAST PATIENT/TECHNOLOGIST PROVIDED HISTORY: Hx mid abd pain, colon resection,hx ??? gall stones, ablation CLINICAL HISTORY: 38 years old Female with Calculus of gallbladder without cholecystitis without obstruction. Periumbilic abdominal rigidity. RUQ pain. Abdominal right upper quadrant rigidity. Abdominal pain, acute, nonlocalized TECHNIQUE: CT of the abdomen and pelvis was performed using standard technique, scanning from just above the dome of the diaphragm to the symphysis pubis. MQ: CTAP_3 Contrast: IV: 100 ml of Omnipaque 300 Oral: 10 ml of Omni 240 10-25ml diluted with water CT Radiation dose: Integrated Dose-length product (DLP) for this visit = 454 mGy*cm. CT Dose Reduction Employed: Automated exposure control(AEC) and iterative recon COMPARISON: None RESULT: Liver: No mass. Biliary: No bile duct dilation. Cholelithiasis. No gallbladder dilation or pericholecystic inflammatory change. Spleen: No mass. No splenomegaly. Pancreas: No mass or duct dilation. Adrenals: No mass. Kidneys: No mass, calculus or hydronephrosis. GI tract: No wall thickening. Right hemicolectomy with ileotransverse colonic anastomosis in the anterior mid abdomen. Patulous loop of small bowel in the LEFT lower quadrant likely related to prior postsurgical change. Few additional mildly dilated loops of small bowel in the LEFT abdomen measuring up to 3.3 cm likely due to peristalsis. Intraluminal contrast is seen within distal nondilated small bowel loops almost to the level of the neoterminal ileum. Lymph nodes: No abdominal or pelvic lymphadenopathy. Mesentery/Peritoneum: No ascites or mass. Retroperitoneum: No mass. Vasculature: - Abdominal aorta and iliac arteries: Patent and normal caliber. - Celiac and SMA: Patent without stenosis. - Portal venous system (SMV, splenic vein, portal vein and branches): Patent. - Hepatic veins: Patent. Pelvis: 2.2 cm peripheral enhancing cystic structure in the LEFT ovary suggestive of corpus luteum. Physiological amount of free fluid in the pelvis. No loculated fluid collection or mass. Bones/Soft Tissues: No significant finding. Lower thorax: Calcified granuloma RIGHT lower lobe. No consolidation. No pleural effusion. Localizer images: No additional findings. IMPRESSION IMPRESSION: No acute process in the abdomen or pelvis. Cholelithiasis. Auto Service Representative: CIARA Transcribe Date/Time: Apr 21 2024 10:12A Dictated by : JOEL WAY DO This examination was interpreted and the report reviewed and electronically signed by: JOEL WAY DO on Apr 21 2024 10:28AM EST [facility] CT Abdomen and Pelvis W cont rast IVOrdered By: Ccf Provider on 04-21-2024 [facility] [place] Biliary ducts and Gallbla dder Views for patency of biliary structures and ejection fraction W sincalide and W radionuclide Meena 04-21-2024 IMPRESSION: Normal gallbladder response to CCK. No scintigraphic evidence to support the diagnosis of either acute or chronic cholecystitis. No evidence for duodenogastric biliary reflux. Auto Service Representative: CIARA Transcribe Date/Time: Apr 21 2024 5:52P Dictated by : ABBIE COLORADO MD This examination was interpreted and the report reviewed and electronically signed by: ABBIE COLORADO MD on Apr 21 2024 5:54PM [facility] DIVISION OF RADIOLOGY * * *Final Report* * * DATE OF EXAM: Apr 21 2024 5:30PM [facility] 00[facility] - [place] HEPATOBILIARY W EF AND/OR RX / PROCEDURE REASON: multiple diagnoses * * * * Physician Interpretation * * * * HEPATOBILIARY SCAN WITH POST-CCK GALLBLADDER EJECTION FRACTION: HISTORY: 38 years old Female patient with history of RUQ abdominal pain. TECHNIQUE: 5.6 mCi Tc-99m Choletec IV, followed by 60 minutes of dynamic imaging of the abdomen. An additional 30 minutes of dynamic imaging before gallbladder was visualized. 60 minutes after the radiotracer injection, the patient received 1.32 micrograms Sincalide (CCK) IV, followed by approximately 30 minutes of additional dynamic imaging. RESULT: There is prompt uptake and clearance of activity by the liver, which is normal in configuration. Major intra- and extrahepatic biliary ducts are visualized. Gallbladder activity is visualized after 60 minutes post injection, indicating cystic duct patency. Proximal small bowel activity is noted within 60 minutes post injection, indicating biliary patency. After CCK was administered IV, the calculated gallbladder ejection fraction was 86% (normal range, >35%). There is no evidence for duodenogastric reflux of biliary activity. DIVISION OF RADIOLOGY Provider, [facility] - 04/21/2024 * * *Final Report* * * DATE OF EXAM: Apr 21 2024 5:30PM [facility] 0021 - [place] HEPATOBILIARY W EF AND/OR RX / PROCEDURE REASON: multiple diagnoses * * * * Physician Interpretation * * * * HEPATOBILIARY SCAN WITH POST-CCK GALLBLADDER EJECTION FRACTION: HISTORY: 38 years old Female patient with history of RUQ abdominal pain. TECHNIQUE: 5.6 mCi Tc-99m Choletec IV, followed by 60 minutes of dynamic imaging of the abdomen. An additional 30 minutes of dynamic imaging before gallbladder was visualized. 60 minutes after the radiotracer injection, the patient received 1.32 micrograms Sincalide (CCK) IV, followed by approximately 30 minutes of additional dynamic imaging. RESULT: There is prompt uptake and clearance of activity by the liver, which is normal in configuration. Major intra- and extrahepatic biliary ducts are visualized. Gallbladder activity is visualized after 60 minutes post injection, indicating cystic duct patency. Proximal small bowel activity is noted within 60 minutes post injection, indicating biliary patency. After CCK was administered IV, the calculated gallbladder ejection fraction was 86% (normal range, >35%). There is no evidence for duodenogastric reflux of biliary activity. IMPRESSION IMPRESSION: Normal gallbladder response to CCK. No scintigraphic evidence to support the diagnosis of either acute or chronic cholecystitis. No evidence for duodenogastric biliary reflux. Auto Service Representative: [facility] Transcribe Date/Time: Apr 21 2024 5:52P Dictated by : ABBIE COLORADO MD This examination was interpreted and the report reviewed and electronically signed by: ABBIE COLORADO MD on Apr 21 2024 5:54PM [facility] Biliary ducts and Gallbla dder Views for patency of biliary structures and ejection fraction W sincalide and W radionuclide IVOrdered By: Ccf Provider on 04-21-2024 [facility] [place] HEPATOBILIARY W EF AND/OR RXon 04-21-2024 [place] HEPATOBILIARY W EF AND/OR RX * * *Final Report* * * DATE OF EXAM: Apr 21 2024 5:30PM [place] [id number] - [place] HEPATOBILIARY W EF AND/OR RX / PROCEDURE REASON: multiple diagnoses * * * * Physician Interpretation * * * * HEPATOBILIARY SCAN WITH POST-CCK GALLBLADDER EJECTION FRACTION: HISTORY: 38 years old Female patient with history of RUQ abdominal pain. TECHNIQUE: 5.6 mCi Tc-99m Choletec IV, followed by 60 minutes of dynamic imaging of the abdomen. An additional 30 minutes of dynamic imaging before gallbladder was visualized. 60 minutes after the radiotracer injection, the patient received 1.32 micrograms Sincalide (CCK) IV, followed by approximately 30 minutes of additional dynamic imaging. RESULT: There is prompt uptake and clearance of activity by the liver, which is normal in configuration. Major intra- and extrahepatic biliary ducts are visualized. Gallbladder activity is visualized after 60 minutes post injection, indicating cystic duct patency. Proximal small bowel activity is noted within 60 minutes post injection, indicating biliary patency. After CCK was administered IV, the calculated gallbladder ejection fraction was 86% (normal range, >35%). There is no evidence for duodenogastric reflux of biliary activity. IMPRESSION: Normal gallbladder response to CCK. No scintigraphic evidence to support the diagnosis of either acute or chronic cholecystitis. No evidence for duodenogastric biliary reflux. Auto Service Representative: [facility] Transcribe Date/Time: Apr 21 2024 5:52P Dictated by : ABBIE COLORADO MD This examination was interpreted and the report reviewed and electronically signed by: ABBIE COLORADO MD on Apr 21 2024 5:54PM EST [id number] Normal [facility] No Panel Informationon 04-21 Radiology Study observation (narrative) [facility] IMPRESSION: Gallbladder stones. Auto Service Representative: [facility] Transcribe Date/Time: Apr 21 2024 2:43P Dictated by : NERISSA ARAMBULA MD This examination was interpreted and the report reviewed and electronically signed by: NERISSA ARAMBULA MD on Apr 21 2024 2:48PM EST DIVISION OF RADIOLOGY No Panel InformationOrdered By: Ccf Provider on 04-21-2024 [facility] US ABD RIGHT UPPER QUADRANTo n 04-21-2024 US ABD RIGHT UPPER QUADRANT * * *Final Report* * * DATE OF EXAM: Apr 21 2024 2:40PM U 1032 - US ABD RIGHT UPPER QUADRANT / PROCEDURE REASON: multiple diagnoses * * * * Physician Interpretation * * * * EXAM TITLE: US ABD RIGHT UPPER QUADRANT, US ABD SPLEEN -NB HISTORY: Right upper quadrant abdominal pain. TECHNIQUE: Sonography of the right upper quadrant and spleen was performed. Images were obtained and stored in a permanent archive. MQ: URUQ_1 COMPARISON: CT abdomen pelvis on 04/21/2024 RESULT: Pancreas: Normal sonographic appearance. Portions obscured: tail Liver: Echotexture: Homogeneous Echogenicity: Normal Surface contour: Smooth Lesions: None. MPV: Patent. Biliary: No intrahepatic biliary duct dilation. CBD: 4 mm in diameter. Gallbladder: Normal caliber -Contents: There are 2.2 cm and 1.4 cm shadowing mobile stones visualized. -Wall: 2 mm in thickness -Other: Negative sonographic Shankar's sign. Kidneys: Within normal limits. Spleen: No splenomegaly or mass lesion identified. The spleen measures 11.9 cm in length. IMPRESSION: Gallbladder stones. Auto Service Representative: [facility] Transcribe Date/Time: Apr 21 2024 2:43P Dictated by : NERISSA ARAMBULA MD This examination was interpreted and the report reviewed and electronically signed by: NERISSA ARAMBULA MD on Apr 21 2024 2:48PM EST [id number] Normal [facility] US ABD SPLEEN - NBon 024 * * *Final Report* * * DATE OF EXAM: Apr 21 2024 2:40PM U 1232 - US ABD SPLEEN -NB / PROCEDURE REASON: multiple diagnoses * * * * Physician Interpretation * * * * EXAM TITLE: US ABD RIGHT UPPER QUADRANT, US ABD SPLEEN -NB HISTORY: Right upper quadrant abdominal pain. TECHNIQUE: Sonography of the right upper quadrant and spleen was performed. Images were obtained and stored in a permanent archive. MQ: URUQ_1 COMPARISON: CT abdomen pelvis on 04/21/2024 RESULT: Pancreas: Normal sonographic appearance. Portions obscured: tail Liver: Echotexture: Homogeneous Echogenicity: Normal Surface contour: Smooth Lesions: None. MPV: Patent. Biliary: No intrahepatic biliary duct dilation. CBD: 4 mm in diameter. Gallbladder: Normal caliber -Contents: There are 2.2 cm and 1.4 cm shadowing mobile stones visualized. -Wall: 2 mm in thickness -Other: Negative sonographic Shankar's sign. Kidneys: Within normal limits. Spleen: No splenomegaly or mass lesion identified. The spleen measures 11.9 cm in length. DIVISION OF RADIOLOGY Provider, [facility] - 04/21/2024 * * *Final Report* * * DATE OF EXAM: Apr 21 2024 2:40PM [facility] 1232 - US ABD SPLEEN -NB / PROCEDURE REASON: multiple diagnoses * * * * Physician Interpretation * * * * EXAM TITLE: US ABD RIGHT UPPER QUADRANT, US ABD SPLEEN -NB HISTORY: Right upper quadrant abdominal pain. TECHNIQUE: Sonography of the right upper quadrant and spleen was performed. Images were obtained and stored in a permanent archive. MQ: URUQ_1 COMPARISON: CT abdomen pelvis on 04/21/2024 RESULT: Pancreas: Normal sonographic appearance. Portions obscured: tail Liver: Echotexture: Homogeneous Echogenicity: Normal Surface contour: Smooth Lesions: None. MPV: Patent. Biliary: No intrahepatic biliary duct dilation. CBD: 4 mm in diameter. Gallbladder: Normal caliber -Contents: There are 2.2 cm and 1.4 cm shadowing mobile stones visualized. -Wall: 2 mm in thickness -Other: Negative sonographic Shankar's sign. Kidneys: Within normal limits. Spleen: No splenomegaly or mass lesion identified. The spleen measures 11.9 cm in length. IMPRESSION IMPRESSION: Gallbladder stones. Auto Service Representative: [facility] Transcribe Date/Time: Apr 21 2024 2:43P Dictated by : NEIRSSA ARAMBULA MD This examination was interpreted and the report reviewed and electronically signed by: NERISSA ARAMBULA MD on Apr 21 2024 2:48PM [facility] US ABD SPLEEN -NBon 04-21-20 US ABD SPLEEN -NB * * *Final Report* * * DATE OF EXAM: Apr 21 2024 2:40PM [facility] 1232 - US ABD SPLEEN -NB / PROCEDURE REASON: multiple diagnoses * * * * Physician Interpretation * * * * EXAM TITLE: US ABD RIGHT UPPER QUADRANT, US ABD SPLEEN -NB HISTORY: Right upper quadrant abdominal pain. TECHNIQUE: Sonography of the right upper quadrant and spleen was performed. Images were obtained and stored in a permanent archive. MQ: URUQ_1 COMPARISON: CT abdomen pelvis on 04/21/2024 RESULT: Pancreas: Normal sonographic appearance. Portions obscured: tail Liver: Echotexture: Homogeneous Echogenicity: Normal Surface contour: Smooth Lesions: None. MPV: Patent. Biliary: No intrahepatic biliary duct dilation. CBD: 4 mm in diameter. Gallbladder: Normal caliber -Contents: There are 2.2 cm and 1.4 cm shadowing mobile stones visualized. -Wall: 2 mm in thickness -Other: Negative sonographic Shankar's sign. Kidneys: Within normal limits. Spleen: No splenomegaly or mass lesion identified. The spleen measures 11.9 cm in length. IMPRESSION: Gallbladder stones. Auto Service Representative: [facility] Transcribe Date/Time: Apr 21 2024 2:43P Dictated by : NERISSA ARAMBULA MD This examination was interpreted and the report reviewed and electronically signed by: NERISSA ARAMBULA MD on Apr 21 2024 2:48PM EST [id number] Normal [facility] US Abdomen RUQon 04-21-2024 * * *Final Report* * * DATE OF EXAM: Apr 21 2024 2:40PM [place] [id number] - US ABD RIGHT UPPER QUADRANT / PROCEDURE REASON: multiple diagnoses * * * * Physician Interpretation * * * * EXAM TITLE: US ABD RIGHT UPPER QUADRANT, US ABD SPLEEN -NB HISTORY: Right upper quadrant abdominal pain. TECHNIQUE: Sonography of the right upper quadrant and spleen was performed. Images were obtained and stored in a permanent archive. MQ: URUQ_1 COMPARISON: CT abdomen pelvis on 04/21/2024 RESULT: Pancreas: Normal sonographic appearance. Portions obscured: tail Liver: Echotexture: Homogeneous Echogenicity: Normal Surface contour: Smooth Lesions: None. MPV: Patent. Biliary: No intrahepatic biliary duct dilation. CBD: 4 mm in diameter. Gallbladder: Normal caliber -Contents: There are 2.2 cm and 1.4 cm shadowing mobile stones visualized. -Wall: 2 mm in thickness -Other: Negative sonographic Shankar's sign. Kidneys: Within normal limits. Spleen: No splenomegaly or mass lesion identified. The spleen measures 11.9 cm in length. DIVISION OF RADIOLOGY Provider, [facility] - 04/21/2024 * * *Final Report* * * DATE OF EXAM: Apr 21 2024 2:40PM [place] [id number] - US ABD RIGHT UPPER QUADRANT / PROCEDURE REASON: multiple diagnoses * * * * Physician Interpretation * * * * EXAM TITLE: US ABD RIGHT UPPER QUADRANT, US ABD SPLEEN -NB HISTORY: Right upper quadrant abdominal pain. TECHNIQUE: Sonography of the right upper quadrant and spleen was performed. Images were obtained and stored in a permanent archive. MQ: URUQ_1 COMPARISON: CT abdomen pelvis on 04/21/2024 RESULT: Pancreas: Normal sonographic appearance. Portions obscured: tail Liver: Echotexture: Homogeneous Echogenicity: Normal Surface contour: Smooth Lesions: None. MPV: Patent. Biliary: No intrahepatic biliary duct dilation. CBD: 4 mm in diameter. Gallbladder: Normal caliber -Contents: There are 2.2 cm and 1.4 cm shadowing mobile stones visualized. -Wall: 2 mm in thickness -Other: Negative sonographic Shankar's sign. Kidneys: Within normal limits. Spleen: No splenomegaly or mass lesion identified. The spleen measures 11.9 cm in length. IMPRESSION IMPRESSION: Gallbladder stones. Auto Service Representative: [facility] Transcribe Date/Time: Apr 21 2024 2:43P Dictated by : NERISSA ARAMBULA MD This examination was interpreted and the report reviewed and electronically signed by: NERISSA ARAMBULA MD on Apr 21 2024 2:48PM EST [facility] CBC W Auto Differential pane l (Bld)on 04-20-2024 Basophils (Bld) [#/Vol] [facility] Basophils/100 WBC (Bld) 0.3 % [facility] Differential cell count method Nom (Bld) Auto [facility] Eosinophils (Bld) [#/Vol] 0.14 10*3/uL [facility] Eosinophils/100 WBC (Bld) 2.1 % [facility] Erythrocyte distribution width (RBC) [Ratio] 11.2 % Low 11.5 - 15.0 % [facility] Hematocrit (Bld) [Volume fraction] 41.3 % 36.0 - 46.0 % [facility] Hemoglobin (Bld) [Mass/Vol] 14.4 g/dL 11.5 - 15.5 g/dL [facility] Immature granulocytes (Bld) [#/Vol] [facility] Immature granulocytes/100 WBC (Bld) 0.1 % [facility] Interpretation and review of laboratory results Abnormal [facility] Lymphocytes (Bld) [#/Vol] 2.75 10*3/uL [facility] Lymphocytes/100 WBC (Bld) 40.4 % [facility] MCH (RBC) [Entitic mass] 32.0 pg 26.0 - 34.0 pg [facility] MCHC (RBC) [Mass/Vol] 34.9 g/dL 30.5 - 36.0 g/dL [facility] MCV (RBC) [Entitic vol] 91.8 fL 80.0 - 100.0 fL [facility] Monocytes (Bld) [#/Vol] 0.37 10*3/uL [facility] Monocytes/100 WBC (Bld) 5.4 % [facility] Neutrophils (Bld) [#/Vol] 3.51 10*3/uL [facility] Neutrophils/100 WBC (Bld) 51.7 % [facility] Nucleated RBC (Bld) [#/Vol] NINF [facility] Nucleated RBC/100 WBC (Bld) [Ratio] 0.0 % /100 WBC [facility] Platelet mean volume (Bld) [Entitic vol] 10.5 fL 9.0 - 12.7 fL [facility] Platelets (Bld) [#/Vol] 210 10*3/uL [facility] RBC (Bld) [#/Vol] 4.50 10*6/uL 3.90 - 5.2 0 m/uL [facility] WBC (Bld) [#/Vol] 6.80 10*3/uL [facility] Basophils (Bld) [#/Vol] 10*3/uL Normal <0.11 [facility] Comment on above: Order Comment: Speci men Type: BLOOD SPECIMENOrdering Facility: [facility] Address: [address] [place] [address] Performed By: #### 5 7021-8 ####[facility] [id number] [place] [address] [place] Basophils/100 WBC (Bld) 0.3 % Normal [facility] Comment on above: Order Comment: Speci men Type: BLOOD SPECIMENOrdering Facility: [facility] Address: [address] [place] [address] Performed By: #### 5 7021-8 ####[facility] [id number] [place] [address] [place] Differential cell count method Nom (Bld) Auto Normal [facility] Comment on above: Order Comment: Speci men Type: BLOOD SPECIMENOrdering Facility: [facility] Address: [address] [place] [address] Performed By: #### 5 7021-8 ####[facility] [id number] [place] [address] [place] Eosinophils (Bld) [#/Vol] 0.14 10*3/uL Normal <0.46 [facility] Comment on above: Order Comment: Speci men Type: BLOOD SPECIMENOrdering Facility: [facility] Address: [address] [place] [address] Performed By: #### 5 7021-8 ####[facility] [id number] [place] [address] [place] Eosinophils/100 WBC (Bld) 2.1 % Normal [facility] Comment on above: Order Comment: Speci men Type: BLOOD SPECIMENOrdering Facility: [facility] Address: [address] [place] [address] Performed By: #### 5 7021-8 ####[facility] [id number] [place] [address] [place] Erythrocyte distribution width (RBC) [Ratio] 11.2 % Low 11.5-15.0 [facility] Comment on above: Order Comment: Speci men Type: BLOOD SPECIMENOrdering Facility: [facility] Address: [address] [place] [address] Performed By: #### 5 7021-8 ####[facility] [id number] [address] [place] Hematocrit (Bld) [Volume fraction] 41.3 % Normal 36.0-46.0 [facility] Comment on above: Order Comment: Speci men Type: BLOOD SPECIMENOrdering Facility: [facility] Address: [address] [place] [address] Performed By: #### 5 7021-8 ####[facility] [id number] [place] [address] [place] Hemoglobin (Bld) [Mass/Vol] 14.4 g/dL Normal 11.5-15.5 [facility] Comment on above: Order Comment: Speci men Type: BLOOD SPECIMENOrdering Facility: [facility] Address: [address] [place] [address] Performed By: #### 5 7021-8 ####[facility] MILLTOWNCLIA [id number] [place] [address] [place] Immature granulocytes (Bld) [#/Vol] 10*3/uL Normal <0.10 [facility] Comment on above: Order Comment: Speci men Type: BLOOD SPECIMENOrdering Facility: [facility] Address: [address] [place] [address] Performed By: #### 5 7021-8 ####[facility] MILLWNCLIA [id number] [place] [address] [place] Immature granulocytes/100 WBC (Bld) 0.1 % Normal [facility] Comment on above: Order Comment: Speci men Type: BLOOD SPECIMENOrdering Facility: [facility] Address: [address] [place] [address] Performed By: #### 5 7021-8 ####[facility] [id number] [place] [address] [place] Lymphocytes (Bld) [#/Vol] 2.75 10*3/uL Normal 1.00-4.00 [facility] Comment on above: Order Comment: Speci men Type: BLOOD SPECIMENOrdering Facility: [facility] Address: [address] [place] [address] Performed By: #### 5 7021-8 ####[facility] MILLTOWNCLIA [id number] [place] [address] [place] Lymphocytes/100 WBC (Bld) 40.4 % Normal [facility] Comment on above: Order Comment: Speci men Type: BLOOD SPECIMENOrdering Facility: [facility] Address: [address] [place] [address] Performed By: #### 5 7021-8 ####[facility] MILLTOWNCLIA [id number] [place] [address] [place] MCH (RBC) [Entitic mass] 32.0 pg Normal 26.0-34.0 [facility] Comment on above: Order Comment: Speci men Type: BLOOD SPECIMENOrdering Facility: [facility] Address: [address] [place] [address] Performed By: #### 5 7021-8 ####[facility] INSTITUTEQU[facility] [id number] [place] [address] [place] MCHC (RBC) [Mass/Vol] 34.9 g/dL Normal 30.5-36.0 [facility] Comment on above: Order Comment: Speci men Type: BLOOD SPECIMENOrdering Facility: [facility] Address: [address] [place] [address] Performed By: #### 5 7021-8 ####[facility] [id number] [place] [address] [place] MCV (RBC) [Entitic vol] 91.8 fL Normal 80.0-100.0 [facility] Comment on above: Order Comment: Speci men Type: BLOOD SPECIMENOrdering Facility: [facility] Address: [address] [place] [address] Performed By: #### 5 7021-8 ####[facility] [id number] [place] [address] [place] Monocytes (Bld) [#/Vol] 0.37 10*3/uL Normal <0.87 [facility] Comment on above: Order Comment: Speci men Type: BLOOD SPECIMENOrdering Facility: [facility] Address: [address] [place] [address] Performed By: #### 5 7021-8 ####[facility] IN[facility]UT[facility]CL[facility] [id number] [place] [address] [place] Monocytes/100 WBC (Bld) 5.4 % Normal [facility] Comment on above: Order Comment: Speci men Type: BLOOD SPECIMENOrdering Facility: [facility] Address: [address] [place] [address] Performed By: #### 5 7021-8 ####[facility] [id number] [place] [address] [place] Neutrophils (Bld) [#/Vol] 3.51 10*3/uL Normal 1.45-7.50 [facility] Comment on above: Order Comment: Speci men Type: BLOOD SPECIMENOrdering Facility: [facility] Address: [address] [place] [address] Performed By: #### 5 7021-8 ####[facility] [id number] [place] [address] [place] Neutrophils/100 WBC (Bld) 51.7 % Normal [facility] Comment on above: Order Comment: Speci men Type: BLOOD SPECIMENOrdering Facility: [facility] Address: [address] [place] [address] Performed By: #### 5 7021-8 ####[facility] [id number] [place] [address] [place] Nucleated RBC (Bld) [#/Vol] 10*3/uL Normal <0.01 [facility] Comment on above: Order Comment: Speci men Type: BLOOD SPECIMENOrdering Facility: [facility] Address: [address] [place] [address] Performed By: #### 5 7021-8 ####[facility] [id number] [place] [address] [place] Nucleated RBC/100 WBC (Bld) [Ratio] 0.0 /100 WBC Normal [facility] Comment on above: Order Comment: Speci men Type: BLOOD SPECIMENOrdering Facility: [facility] Address: [address] [place], [place] [address] Performed By: #### 5 7021-8 ####[facility] [place]ERN[facility] [id number] [place] [address] [place] Platelet mean volume (Bld) [Entitic vol] 10.5 fL Normal 9.0-12.7 [facility] Comment on above: Order Comment: Speci men Type: BLOOD SPECIMENOrdering Facility: [facility] Address: [address] [place], [place] [address] Performed By: #### 5 7021-8 ####[facility] [id number] [place] [address] [place] Platelets (Bld) [#/Vol] 210 10*3/uL Normal 150-400 [facility] Comment on above: Order Comment: Speci men Type: BLOOD SPECIMENOrdering Facility: [facility] Address: [address] [place], [place] [address] Performed By: #### 5 7021-8 ####[facility] IN[facility]UT[facility]CL[facility] [id number] [place] [address] [place] RBC (Bld) [#/Vol] 4.50 10*6/uL Normal 3.90-5.20 [facility] Comment on above: Order Comment: Speci men Type: BLOOD SPECIMENOrdering Facility: [facility] Address: [address] [place], [place] [address] Performed By: #### 5 7021-8 ####[facility] IN[facility]UT[facility]CL[facility] [id number] [place] [address] [place] WBC (Bld) [#/Vol] 6.80 10*3/uL Normal 3.70-11.00 [facility] Comment on above: Order Comment: Speci men Type: BLOOD SPECIMENOrdering Facility: [facility] Address: [address] [place], [place] [address] Performed By: #### 5 7021-8 ####[facility] MILLTOWNCLIA [id number] [place] [address] [place] CNOVon 04-20-2024 CNOV Office Visit (FAMPWS ) ----- SMITA CHU ([id number]) 1985 F Date Time Provider Department 04/20/24 11:00 AM GRISELDA MCKINNEY During your visit today, we recorded the following information about you: Temperature Pulse Respiration Blood pressure 99 degrees 64/minute 16/minute 102/84 Weight 66.1 kg Griselda Mckinney APRN.[employer] READY WORKER 04/20/2024 12:12 PM Signed Chief Complaint Patient presents with: Abdominal Pain: Umbilical area, RUQ with deep breaths and movement X 1 week HPI Smitaaleah Chu is a 38 year old female who presents here today for Above Complaints.. Was admitted to When walking and moving has significant pain around her belly button. Touching this area is very painful. Denies n/v, has been on a liquid diet for the past week. Past medical history, appointments, medications, allergies reviewed. 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 1986: Necrotizing enterocolitis in Previous Surgical History PAST SURGICAL HISTORY 08/23/2020: DILATION AND CURETTAGE DXAND/THER NONOBSTETRIC Comment: hysteroscopy DANDC at [facility] No date: HYSTEROSCOPY,W/ENDOMETRIA L ABLATION 1986: PAST SURGICAL HISTORY OF Comment: BOWEL SURG , she had NEC Family History FAMILY HISTORY Problem Relation Age of Onset Heart Mother Thyroid Mother Diabetes Maternal Grandmother Heart Maternal Grandmother Hypertension Maternal Grandmother Seizures Sister other (Mentally Handicaped) Sister Breast Cancer Maternal Aunt Patient Allergies ALLERGIES Allergen Reactions Augmentin [Amoxicil* Rash Cephalexin Rash Current Medications Current Outpatient Medications on File Prior to Visit Medication Sig cyanocobalamin, vitamin B-12, (VITAMIN B-12 ORAL) Take by mouth. Multivitamin capsule Take 1 capsule by mouth once daily. ferrous sulfate 325 mg (65 mg iron) tablet Take 325 mg by mouth daily with breakfast. medroxyPROGESTERone (PROVERA) 10 mg tablet Take 1 tablet by mouth once daily. for 20 days a month No current facility-administered medications on file prior to visit. Social History Social History Tobacco Use Smoking status: Former Years: 1 Types: Cigarettes Quit date: 02/28/2008 Years since quittin.1 Smokeless tobacco: Never Vaping Use Vaping Use: Never used Substance Use Topics Alcohol use: No Comment: occasional,NOT WHILE Drug use: No Review of Symptoms REVIEW OF SYSTEMS See HPI, otherwise negative EXAM: BP 102/84 (BP Site: Left Arm, BP Position: Sitting, BP Cuff Size: Regular Adult) Pulse 64 Temp 37.2 ?C (99 ?F) Resp 16 Wt 66.1 kg (145 lb 12.8 oz) LMP 04/02/2021 (Exact Date) SpO2 98% BMI 24.45 kg/m? General Appearance: ill-appearing, alert, in no acute distress, well-hydrated, well nourished.. Lungs: Lungs clear to auscultation. No wheezing, rhonchi, rales.. Heart: RRR without murmur, gallop, or rubs. No ectopy. Abdomen: very difficult to assess due to severe tenderness and rigidity of entire abdomen. Psychiatric: pleasant, cooperative, flat affect-d/t pain. Health Maintenance List Depression Screening Never done Anxiety Screening Never done Hepatitis C Screening Never done DTaP,Tdap,Td Vaccine(6 - Td or Tdap) due on 10/06/2017 Covid-19 Vaccine(2022- season) due on 05/22/2023 Influenza Vaccine(1) due on 05/22/2024 Cervical Cancer Screening due on 08/03/2025 HIV Screening Completed HPV Vaccine Aged Out Data reviewed Previous records, office notes ASSESSMENT/PLAN: 1. Calculus of gallbladder without cholecystitis without obstruction - ICD9: 574.20, ICD10: K80.20 (primary diagnosis) - COMPLETE BLOOD COUNT AND DIFFERENTIAL - COMPREHENSIVE METABOLIC PANEL - CT ABD/PEL W IVCON - IV CONTRAST (RADIOLOGY PROCEDURE) - ENTERIC CONTRAST (RADIOLOGY PROCEDURE) - US ABD RIGHT UPPER QUADRANT - NM HEPATOBILIARY W EF AND/OR RX - CONSULT TO GENERAL SURGERY 2. Periumbilic abdominal rigidity - ICD9: 789.45, ICD10: R19.35 - COMPLETE BLOOD COUNT AND DIFFERENTIAL - COMPREHENSIVE METABOLIC PANEL - CT ABD/PEL W IVCON - IV CONTRAST (RADIOLOGY PROCEDURE) - ENTERIC CONTRAST (RADIOLOGY PROCEDURE) - US ABD RIGHT UPPER QUADRANT - NM HEPATOBILIARY W EF AND/OR RX - CONSULT TO GENERAL SURGERY 3. RUQ pain - ICD9: 789.01, ICD10: R10.11 - COMPLETE BLOOD COUNT AND DIFFERENTIAL - COMPREHENSIVE METABOLIC PANEL - CT ABD/PEL W IVCON - IV CONTRAST (RADIOLOGY PROCEDURE) - ENTERIC CONTRAST (RADIOLOGY PROCEDURE) - US ABD RIGHT UPPER QUADRANT - NM HEPATOBILIARY W EF AND/OR RX - CONSULT TO GENERAL SURGERY 4. Abdominal right upper quadrant rigidity - ICD9: 789.41, ICD10: R19.31 - COMPLETE BLOOD COUNT AND DIFFERENTIAL - COMPREHENSIVE METABOLIC PANEL - CT ABD/PEL W IVCON - IV CONTRAST (RADIOLOGY PROCEDURE) - ENT (more content not included)... Normal [facility] Comprehensive metabolic 2000 panelOrdered By: Shanika Glasgow on 04-20-2024 Albumin [Mass/Vol] 5.0 g/dL High 3.9 - 4.9 g/dL [facility] ALP [Catalytic activity/Vol] 56 U/L 34 - 123 U/L [facility] ALT [Catalytic activity/Vol] 19 U/L 7 - 38 U/L [facility] Anion gap [Moles/Vol] 12 mmol/L 8 - 15 mmol/L [facility] AST [Catalytic activity/Vol] 13 U/L 13 - 35 U/L [facility] Bilirubin [Mass/Vol] 0.5 mg/dL 0.2 - 1 .3 mg/dL [facility] Calcium [Mass/Vol] 10.5 mg/dL High 8.5 - 10. 2 mg/dL [facility] Chloride [Moles/Vol] 102 mmol/L 98 - 10 7 mmol/L [facility] CO2 [Moles/Vol] 24 mmol/L 22 - 30 mmol/L [facility] Creatinine [Mass/Vol] 0.73 mg/dL 0.58 - 0.96 mg/dL [facility] GFR/1.73 sq M.predicted among non-blacks MDRD (S/P/Bld) [Vol rate/Area] 109 mL/min/{1.73_m2} - PINF [facility] Comment on above: Estimated Glomerular Filtration Rate (eGFR) is calculated using the 202 CKD-EPI creatinine equation. This equation utilizes serum creatinine, sex, and age as parameters. The creatinine assay has traceable calibration to isotope dilution-mass spectrometry. Refer to KDIGO guidelines for clinical interpretation. In patients with unstable renal function, e.g. those with acute kidney injury, the eGFR may not accurately reflect actual GFR. Glucose [Mass/Vol] 93 mg/dL 74 - 99 mg/dL [facility] Comment on above: The [place] Diabete s Association (ADA) provides guidance for cutoff values for fasting glucose and random glucose. The ADA defines fasting as no caloric intake for at least 8 hours. Fasting plasma glucose results between 100 to 125 mg/dL indicate increased risk for diabetes (prediabetes). Fasting plasma glucose results greater than or equal to 126 mg/dL meet the criteria for diagnosis of diabetes. In the absence of unequivocal hyperglycemia, results should be confirmed by repeat testing. In a patient with classic symptoms of hyperglycemia or hyperglycemic crisis, random plasma glucose results greater than or equal to 200 mg/dL meet the criteria for diagnosis of diabetes. Reference: Standards of Medical Care in Diabetes 2016, [place] Diabetes Association. Diabetes Care. 2016.39(Suppl 1). Interpretation and review of laboratory results Abnormal [facility] Potassium [Moles/Vol] 4.5 mmol/L 3.7 - 5.1 mmol/L [facility] Protein [Mass/Vol] 8.0 g/dL 6.3 - 8.0 g/dL [facility] Sodium [Moles/Vol] 138 mmol/L 136 - 144 mmol/L [facility] Urea nitrogen [Mass/Vol] 6 mg/dL Low 7 - 21 mg/dL [facility] Comprehensive metabolic 2000 panelon 04-20-2024 Albumin [Mass/Vol] 5.0 g/dL High 3.9-4.9 [facility] Comment on above: Order Comment: Speci men Type: BLOOD SPECIMENOrdering Facility: [facility] Address: [address] [place] [address] Performed By: #### 2 4323-8 ####[facility] KRZYSZTOF RICHARDTAYLORSVILLEQUIQUE [id number] [place] [address] [place] ALP [Catalytic activity/Vol] 56 U/L Normal 34-123 [facility] Comment on above: Order Comment: Speci men Type: BLOOD SPECIMENOrdering Facility: [facility] Address: [address] [place] [address] Performed By: #### 2 4323-8 ####[facility] KRZYSZTOF MILLWNCLIA [id number] [place] [address] [place] ALT [Catalytic activity/Vol] 19 U/L Normal 7-38 [facility] Comment on above: Order Comment: Speci men Type: BLOOD SPECIMENOrdering Facility: [facility] Address: [address] [place] [address] Performed By: #### 2 4323-8 ####[facility] IN[facility]UTENCLIA [id number] [place] [address] [place] Anion gap [Moles/Vol] 12 mmol/L Normal 8-15 [facility] Comment on above: Order Comment: Speci men Type: BLOOD SPECIMENOrdering Facility: [facility] Address: [address] [place] [address] Performed By: #### 2 4323-8 ####[facility] INSTITUTENCLIA [id number] [place] [address] [place] AST [Catalytic activity/Vol] 13 U/L Normal 13-35 [facility] Comment on above: Order Comment: Speci men Type: BLOOD SPECIMENOrdering Facility: [facility] Address: [address] [place] [address] Performed By: #### 2 4323-8 ####[facility] INSTITUTENCLIA [id number] [place] [address] [place] Bilirubin [Mass/Vol] 0.5 mg/dL Normal 0.2-1.3 [facility] Comment on above: Order Comment: Speci men Type: BLOOD SPECIMENOrdering Facility: [facility] Address: [address] [place] [address] Performed By: #### 2 4323-8 ####[facility] KRZYSZTOF MILLTOWNCLIA [id number] [place] [address] [place] Calcium [Mass/Vol] 10.5 mg/dL High 8.5-10.2 [facility] Comment on above: Order Comment: Speci men Type: BLOOD SPECIMENOrdering Facility: [facility] Address: [address] [place] [address] Performed By: #### 2 4323-8 ####[facility] MILLTOWNCLIA [id number] [place] [address] [place] Chloride [Moles/Vol] 102 mmol/L Normal 98-107 [facility] Comment on above: Order Comment: Speci men Type: BLOOD SPECIMENOrdering Facility: [facility] Address: [address] [place] [address] Performed By: #### 2 4323-8 ####[facility] MILLTOWNCLIA [id number] [place] [address] [place] CO2 [Moles/Vol] 24 mmol/L Normal 22-30 [facility] Comment on above: Order Comment: Speci men Type: BLOOD SPECIMENOrdering Facility: [facility] Address: [address] [place] [address] Performed By: #### 2 4323-8 ####[facility] MILLTOWNCLIA [id number] [place] [address] [place] Creatinine [Mass/Vol] 0.73 mg/dL Normal 0.58-0.96 [facility] Comment on above: Order Comment: Speci men Type: BLOOD SPECIMENOrdering Facility: [facility] Address: [address] [place] [address] Performed By: #### 2 4323-8 ####[facility] [id number] [place] [address] [place] Creatinine and Glomerular filtration rate.predicted panel (S/P/Bld) 109 mL/min/1.73m??? Normal >=60 [facility] Comment on above: Order Comment: Sandra leggett Type: BLOOD SPECIMENOrdering Facility: [facility] Address: [address] [place] [address] Result Comment: Andres mated Glomerular Filtration Rate (eGFR) is calculated using the 2020 CKD-EPI creatinine equation. This equation utilizes serum creatinine, sex, and age as parameters. The creatinine assay has traceable calibration to isotope dilution-mass spectrometry. Refer to KDIGO guidelines for clinical interpretation. In patients with unstable renal function, e.g. those with acute kidney injury, the eGFR may not accurately reflect actual GFR. Performed By: #### 2 4323-8 ####[facility] [id number] [place] [address] [place] Glucose [Mass/Vol] 93 mg/dL Normal 74-99 [facility] Comment on above: Order Comment: Sandra leggett Type: BLOOD SPECIMENOrdering Facility: [facility] Address: [address] [place] [address] Result Comment: The [place] Diabetes Association (ADA) provides guidance for cutoff values for fasting glucose and random glucose. The ADA defines fasting as no caloric intake for at least 8 hours. Fasting plasma glucose results between 100 to 125 mg/dL indicate increased risk for diabetes (prediabetes). Fasting plasma glucose results greater than or equal to 126 mg/dL meet the criteria for diagnosis of diabetes. In the absence of unequivocal hyperglycemia, results should be confirmed by repeat testing. In a patient with classic symptoms of hyperglycemia or hyperglycemic crisis, random plasma glucose results greater than or equal to 200 mg/dL meet the criteria for diagnosis of diabetes. Reference: Standards of Medical Care in Diabetes 2016, [place] Diabetes Association. Diabetes Care. 2016.39(Suppl 1). Performed By: #### 2 4323-8 ####[facility] [id number] [place] [address] [place] Potassium [Moles/Vol] 4.5 mmol/L Normal 3.7-5.1 [facility] Comment on above: Order Comment: Speci men Type: BLOOD SPECIMENOrdering Facility: [facility] Address: [address] [place] [address] Performed By: #### 2 4323-8 ####[facility] IN[facility]UTENCLIA [id number] [place] [address] [place] Protein [Mass/Vol] 8.0 g/dL Normal 6.3-8.0 [facility] Comment on above: Order Comment: Speci men Type: BLOOD SPECIMENOrdering Facility: [facility] Address: [address] [place] [address] Performed By: #### 2 4323-8 ####[facility] [id number] [place] [address] [place] Sodium [Moles/Vol] 138 mmol/L Normal 136-144 [facility] Comment on above: Order Comment: Speci men Type: BLOOD SPECIMENOrdering Facility: [facility] Address: [address] [place] [address] Performed By: #### 2 4323-8 ####[facility] [id number] [place] [address] [place] Urea nitrogen [Mass/Vol] 6 mg/dL Low 7-21 [facility] Comment on above: Order Comment: Speci men Type: BLOOD SPECIMENOrdering Facility: [facility] Address: [address] [place] [address] Performed By: #### 2 4323-8 ####[facility]UTENCLIA [id number] [place] [address] [place] Chloe 04-19-2024 JOHNN Telephone (FAMPWS) ----- SMITA CHU ([id number]) 1985 F Date Time Provider Department 04/19/24 ANDREA WHITFIELDPWS During your visit today, we recorded the following information about you: Andrea Whitfield DO 04/19/2024 9:19 AM Signed Okay for patient to establish care with me and our office. Please schedule her a 40-60 minute office visit for abdominal pain with Linnette or Sugar. Patient is aware of this. This appointment needs to be in the next 1-2 days. 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 Recently she has had abdominal pain generalized that is persistant. She has been seen at [facility] and had CT abd/pelvis without any specific finidings. She was hospitalized with assumption for small bowel partial obstruction, although she continued to have some bowel movements through the hospital stay. Also found to have gallstones She is in need of further testing at this time. DO Riley Winters Susan LPN 04/19/2024 9:56 AM Signed Appt. scheduled Pt. informed. Allergies As of Date: 04/19/2024 Noted Allergy Reaction AUGMENTIN (AMOXICILLIN-POT CLAVUL*01/11/2018 2 - Rash CEPHALEXIN 04/18/2021 2 - Rash Date Reviewed: 08/05/2021 Reviewed by: Daina Kauffman MD - Fully Assessed Prescriptions as of 04/19/2024 - medroxyPROGESTERone (PROVERA) 10 mg tablet Take 1 tablet by mouth once daily. for 20 days a month - Multivitamin capsule Take 1 capsule by mouth once daily. - ferrous sulfate 325 mg (65 mg iron) tablet Take 325 mg by mouth daily with breakfast. Problem List As Of Date 04/19/2024 Noted Resolved Irregular menstrual cycle [N92.6] 06/21/2007 12/08/2011 Supervision of normal first [Z34.00] 04/14/2008 09/06/2010 Viral Wart: L ankle area [B07.9] 11/19/2009 12/08/2011 Supervision of other normal [Z34.80] 10/08/2010 12/08/2011 Vitamin d deficiency [E55.9] 01/06/2013 Chronic diarrhea [K52.9] 01/06/2013 10/18/2014 Supervision of other normal [Z34.80] 10/18/2014 06/19/2015 Encounter for supervision of normal [*04/29/2017 07/25/2020 Encounter Status:Closed by EVAN ROBERTS LPN on 04/19/24 Normal [facility] BASIC METABOLIC PANELon 02-0 Anion gap [Moles/Vol] 11 mmol/L Normal 10 - 20 [facility] Comment on above: Performed By: #### B MP #### [address] [address] Calcium [Mass/Vol] 9.5 mg/dL Normal 8.6 - 10.3 [facility] Comment on above: Performed By: #### B MP #### [address] [address] Chloride [Moles/Vol] 108 mmol/L High 98 - 107 [facility] Comment on above: Performed By: #### B MP #### [address] [address] Creatinine [Mass/Vol] 0.73 mg/dL Normal 0.50 - 1.05 [facility] Comment on above: Performed By: #### B MP #### [address] [address] eGFR FEMALE >90 Normal >90 [facility] Comment on above: Result Comment: CALC ULATIONS OF ESTIMATED GFR ARE PERFORMED USING THE 2020 CKD-EPI STUDY REFIT EQUATION WITHOUT THE RACE VARIABLE FOR THE IDMS-TRACEABLE CREATININE METHODS. https://jasn.asnjournals.org/content/early//ASN.663884 6944 Performed By: #### B MP #### [address] [address] Glucose [Mass/Vol] 81 mg/dL Normal 74 - 99 [facility] Comment on above: Performed By: #### B MP #### [address] [address] HCO3 (Bld) [Moles/Vol] 25 mmol/L Normal 21 - 32 [facility] Comment on above: Performed By: #### B MP #### [address] [address] Potassium [Moles/Vol] 3.9 mmol/L Normal 3.5 - 5.3 [facility] Comment on above: Performed By: #### B MP #### [address] [address] Sodium [Moles/Vol] 140 mmol/L Normal 136 - 145 [facility] Comment on above: Performed By: #### B MP #### [address] [address] Urea nitrogen [Mass/Vol] 8 mg/dL Normal 6 - 23 [facility] Comment on above: Performed By: #### B MP #### [address] [address] Laboratory - Chemistry and C hemistry - challengeon 10-30-2022 Anion gap [Moles/Vol] 11 mmol/L 10 - 20 [facility] [place] [address] [place] Work Phone: Calcium [Mass/Vol] 9.5 mg/dL 8.6 - 10.3 [facility] di[facility] [place] [address] [place] Work Phone: [phone] Chloride [Moles/Vol] 108 mmol/L above high threshold 98 - 107 [facility] -[place] [address] [place] Work Phone: [phone] CO2 [Moles/Vol] 25 mmol/L 21 - 32 [facility]io log [facility]-[place] [address] [place] Work Phone: [phone] Creatinine [Mass/Vol] 0.73 mg/dL See Below [facility]- [facility] y-[place] [address] [place] Work Phone: Comment on above: Reference Range: 0.5 0 - 1.05 Glucose [Mass/Vol] 81 mg/dL 74 - 99 -[facility] [place] [address] [place] Work Phone: [phone] Potassium [Moles/Vol] 3.9 mmol/L 3.5 - 5.3 [facility] [address] Work Phone: [phone] Sodium [Moles/Vol] 140 mmol/L 136 - 145 -Car di[facility] [address] Work Phone: Urea nitrogen [Mass/Vol] 8 mg/dL 6 - 23 -[facility] [address] Work Phone: [phone] MAGNESIUMon 10-30-2022 Magnesium [Mass/Vol] 1.82 mg/dL Normal 1.60 - 2.40 [facility] Comment on above: Performed By: #### M G #### [place] [address] [place] [address] Magnesium, Serumon Magnesium [Mass/Vol] 1.82 mg/dL See Below MP-[facility] ardiolog [address] Work Phone: [phone] Comment on above: Reference Range: 1.6 0 - 2.40 No Panel Informationon 10-30 >90 >[address] [address] Work Phone: Comment on above: CALCULATIONS OF ANDRES MATED GFR ARE PERFORMED USING THE 2020 CKD-EPI STUDY REFIT EQUATION WITHOUT THE RACE VARIABLE FOR THE IDMS-TRACEABLE CREATININE METHODS.https://jasn.asnjournals.org/content/early// N.0982357722 Office Visit (Cardiology)on 08-01-2022 Follow-up visit Diagnoses/Problems Assessed Dizziness (780.4) (R42) Orders Heart palpitations Interr. Device Eval - Implant Loop Recorder; Status:Hold For - Scheduling; Requested for:01Aug2022; Chief Complaint Palpitations History of Present [id number] female with no significant personal history of cardiac complaints here for the following complaints: Palpitations -Patient was diagnosed with COVID September 2021; and has been noticing nighttime palpitations. -Does have significant family history of arrhythmia (RI in her aunt 150, sister had a pacemaker at age 35) -Echocardiogram performed April 2022 shows preserved biventricular function. Patient on this visit notes that since January 2022 she has been having sporadic symptoms (about once a month) of palpitations that last 1-2 minutes; she can hear the pulse in her ear; it is associated with dizziness/palpitations/ a fuzzy feeling and some tinnitus. She does note some chest discomfort with these episodes and shortness of breath as well. Outside of these episodes she denies any exertional dyspnea. Denies any orthopnea/PND/lower extremity edema. Denies any dizziness or lightheadedness. Notably her sister (at age 35) passed out when driving; and after an EP evaluation received a defibrillator . Active Problems Problems Dizziness (780.4) (R42) Heart palpitations (785.1) (R00.2) Lightheadedness (780.4) (R42) Other malaise and fatigue (780.79) (R53.81,R53.83) Sinus bradycardia (427.89) (R00.1) Vitamin D deficiency (268.9) (E55.9) Surgical History Problems History of Ablation uterine History of Dilation and curettage History of Surgery COLOSTOMY REVERSAL. HAD PART OF HER COLON REMOVED AND HAD A COLOSTOMY AN IN THE NICU Past Medical History Problems History of Pap test, as part of routine gynecological examination (V76.2) (Z01.419) Current Meds Medication NameInstruction Iron 325 MG TABSTAKE 1 TABLET DAILY. Multivitamin Adult Oral TabletTAKE 1 TABLET DAILY. Vitamin B12 TABSoccasional use Vitamin D TABSTAKE 1 TABLET DAILY. Allergies Medication No Known Drug Allergies Recorded By: Bhakti Christine; 04/21/2022 11:04:18 AM Family History Mother Family history of hypertension (V17.49) (Z82.49) Father Family history of malignant neoplasm of colon (V16.0) (Z80.0) Sister Family history of Cardiac defibrillator in place PLACED AT 35 Maternal Grandmother Family history of malignant neoplasm of breast (V16.3) (Z80.3) Paternal Grandfather Family history of malignant neoplasm of colon (V16.0) (Z80.0) Maternal Aunt Family history of malignant neoplasm of breast (V16.3) (Z80.3) Family history of myocardial infarction (V17.3) (Z82.49) X3 Other Family history of cardiac disorder (V17.49) (Z82.49) Social History Problems Consumes alcohol occasionally (V49.89) (Z78.9) Daily caffeine consumption Does not use illicit drugs (V49.89) (Z78.9) Non-smoker (V49.89) (Z78.9) Patient has active power of trademark attorney for health care (V49.89) (Z78.9) Patient has living will (V49.89) (Z78.9) Review of Systems Constitutional: Denies any fever or chills Eyes: Denies any eye pain or blurry vision ENT: Denies any ear pain or hearing loss Cardiovascular: The heart rate is not slow, the heart rate is not fast Respiratory: Denies any asthma/wheezing Gastrointestinal: Denies any iza colored stools or fatty food intolerance Genitourinary: Denies any blood in the urine or pelvic pain Musculoskeletal: Denies any swelling in the joints or difficulty walking Skin: Denies any skin lumps or skin lesions Neurological: Denies any dizziness/tingling Physical Exam General: AANDOx3 HEENT: NC/AT; EOMI; PERRLA, external ear is normal Neck: supple; no JVD Chest: CTAB; no wheezing CVS: S1S2 normal, no murmurs Abdomen: Soft, NT/ND, no organomegaly Extremities: no clubbing/cyanosis/edema Neuro: Grossly intact Results/Data CT Cardiac [id number] 11:09[facility]ill[facility] ORDER REVISED TO A CT CARDIAC SCORING BY RADIOLOGIST; Original Order Number: [id number] Test NameResultFlagReference CT Cardiac Scoring(Report) FINAL REPORT Interpreted by: BELINDA GORMAN LEE, MD 07/03/22 16:51 Patient Name: SMITA CHU STUDY: CT CARDIAC SCORING; 07/02/2022 11:09 am INDICATION: Family history of cardiac disorder Z82.49: Family history of cardiac disorder. COMPARISON: None. ACCESSION NUMBER(S): [id number] ORDERING CLINICIAN: MARIJA DAVID TECHNIQUE: Using prospective ECG gating, CT scan of the coronary arteries was performed without intravenous contrast. Coronary calcium scoring was performed according to the method of Agatston. FINDINGS: The score and distribution of calcium in the coronary arteries is as follows: Left Main Coronary: 0. Left Anterior Descendin. Left Circumflex: 0. Right Coronary Artery: 0. Total: 0. There is a calcified granuloma in the right lower lobe. The aorta is without aneurysmal dilatatio (more content not included)... Normal [place] Tobacco Screening.on Fall risk assessment a) No falls within the last year [facility] [email or web address] Work Phone: Tobacco use status CPHS b) No [facility] Work Phone: CT CARDIAC SCORINGon CT CARDIAC SCORING Patient Name: SMITA CHU STUDY: CT CARDIAC SCORING; 07/02/2022 11:09 am INDICATION: Family history of cardiac disorder Z82.49: Family history of cardiac disorder. COMPARISON: None. ACCESSION NUMBER(S): [id number] ORDERING CLINICIAN: MARIJA DAVID TECHNIQUE: Using prospective ECG gating, CT scan of the coronary arteries was performed without intravenous contrast. Coronary calcium scoring was performed according to the method of Agatston. FINDINGS: The score and distribution of calcium in the coronary arteries is as follows: Left Main Coronary: 0. Left Anterior Descendin. Left Circumflex: 0. Right Coronary Artery: 0. Total: 0. There is a calcified granuloma in the right lower lobe. The aorta is without aneurysmal dilatation evident. The heart is not enlarged. No pericardial effusion is evident. No hilar or mediastinal lymphadenopathy is evident. Structures in the visualized upper abdomen are grossly unremarkable. IMPRESSION: 1. Coronary artery calcium score of 0*. *Coronary artery calcium scoring may be helpful in predicting the risk for future coronary heart disease events. According to the [employer] Clinical Expert Consensus Task Force, such testing provides important prognostic information in patients with more than one coronary heart disease risk factor. The coronary artery calcium score correlates with the annual risk of a non-fatal myocardial infarction or coronary heart disease . Coronary artery score Annual Risk 0-99 0.4% 100-399 1.3% >400 2.4% These three breakpoints correspond to lower, intermediate and high risk states for future coronary events. Such information should be used, along with appropriate clinical judgment, to make decisions regarding the intensity of risk factor management strategies to treat blood lipids and to modify other non-lipid coronary risk factors. Reference: Marisela P et al. Circulation. 2007; 115:402-426 Electronically signed by: BELINDA GORMAN MD [facility] CT Cardiac Scoringon 022 CT Cardiac Scoring Normal [facility] Internal Medicine Work Phone: CBC AND DIFFERENTIALon 04-30 Basophils (Bld) [#/Vol] 0.00 10*3/uL Normal 0.00 - 0.10 [facility] Comment on above: Performed By: #### C BCDF #### [address] [address] Basophils/100 WBC (Bld) 0.5 % Normal 0.0 - 2.0 [facility] Comment on above: Performed By: #### C BCDF #### [address] [address] Eosinophils (Bld) [#/Vol] 0.10 10*3/uL Normal 0.00 - 0.70 [facility] Comment on above: Performed By: #### C BCDF #### [address] [address] Eosinophils/100 WBC (Bld) 2.1 % Normal 0.0 - 6.0 [facility] Comment on above: Performed By: #### C BCDF #### [address] [address] Erythrocyte distribution width (RBC) [Ratio] 12.0 % Normal 11.5 - 14.5 [facility] Comment on above: Performed By: #### C BCDF #### [address] [address] Hematocrit (Bld) [Volume fraction] 41.5 % Normal 36.0 - 46.0 [facility] Comment on above: Performed By: #### C BCDF #### [address] [address] Hemoglobin (Bld) [Mass/Vol] 14.2 g/dL Normal 12.0 - 16.0 [facility] Comment on above: Performed By: #### C BCDF #### [address] [address] Lymphocytes (Bld) [#/Vol] 2.60 10*3/uL Normal 1.20 - 4.80 [facility] Comment on above: Performed By: #### C BCDF #### [address] [address] Lymphocytes/100 WBC (Bld) 43.0 % Normal 13.0 - 44.0 [facility] Comment on above: Performed By: #### C BCDF #### [address] [address] MCHC (RBC) [Mass/Vol] 34.3 g/dL Normal 32.0 - 36.0 [facility] Comment on above: Performed By: #### C BCDF #### [address] [address] MCV (RBC) [Entitic vol] 94 fL Normal 80 - 100 [facility] Comment on above: Performed By: #### C BCDF #### [address] [address] Monocytes (Bld) [#/Vol] 0.30 10*3/uL Normal 0.10 - 1.00 [facility] Comment on above: Performed By: #### C BCDF #### [address] [address] Monocytes/100 WBC (Bld) 5.1 % Normal 2.0 - 10.0 [facility] Comment on above: Performed By: #### C BCDF #### [address] [address] Neutrophils (Bld) [#/Vol] 3.00 10*3/uL Normal 1.20 - 7.70 [facility] Comment on above: Result Comment: Perc ent differential counts (%) should be interpreted in the context of the absolute cell counts (cells/L). Performed By: #### C BCDF #### [address] [address] Neutrophils/100 WBC (Bld) 49.3 % Normal 40.0 - 80.0 [facility] Comment on above: Performed By: #### C BCDF #### [address] [address] NUCLEATED RBC 0.1 /100 WBC Normal [facility] Comment on above: Performed By: #### C BCDF #### [address] [address] Platelets (Bld) [#/Vol] 200 10*3/uL Normal 150 - 450 [facility] Comment on above: Performed By: #### C BCDF #### [address] [address] RBC 4.39 x10E12/L Normal 4.00 - 5.20 [facility] Comment on above: Performed By: #### C BCDF #### [address] [address] WBC (Bld) [#/Vol] 6.1 10*3/uL Normal 4.4 - 11.3 [facility] Comment on above: Performed By: #### C BCDF #### [address] [address] COMPREHENSIVE PANELon 2021 Albumin [Mass/Vol] 4.8 g/dL Normal 3.4 - 5.0 [facility] Comment on above: Performed By: #### C MP #### [address] [address] ALP [Catalytic activity/Vol] 43 U/L Normal 33 - 110 [facility] Comment on above: Performed By: #### C MP #### [address] [address] ALT [Catalytic activity/Vol] 15 U/L Normal 7 - 45 [facility] Comment on above: Result Comment: Moni ents treated with Sulfasalazine may generate falsely decreased results for ALT. Performed By: #### C MP #### [address] [address] Anion gap [Moles/Vol] 12 mmol/L Normal 10 - 20 [facility] Comment on above: Performed By: #### C MP #### [address] [address] AST [Catalytic activity/Vol] 14 U/L Normal 9 - 39 [facility] Comment on above: Performed By: #### C MP #### [address] [address] Bilirubin [Mass/Vol] 0.6 mg/dL Normal 0.0 - 1.2 [facility] Comment on above: Performed By: #### C MP #### [address] [address] Calcium [Mass/Vol] 9.5 mg/dL Normal 8.6 - 10.3 [facility] Comment on above: Performed By: #### C MP #### [address] [address] Chloride [Moles/Vol] 106 mmol/L Normal 98 - 107 [facility] Comment on above: Performed By: #### C MP #### [address] [address] Creatinine [Mass/Vol] 0.68 mg/dL Normal 0.50 - 1.05 [facility] Comment on above: Performed By: #### C MP #### [address] [address] eGFR FEMALE >90 Normal >90 [facility] Comment on above: Result Comment: CALC ULATIONS OF ESTIMATED GFR ARE PERFORMED USING THE 2020 CKD-EPI STUDY REFIT EQUATION WITHOUT THE RACE VARIABLE FOR THE IDMS-TRACEABLE CREATININE METHODS. https://jasn.asnjournals.org/content//ASN.031327 6623 Performed By: #### C MP #### [address] [address] Glucose [Mass/Vol] 82 mg/dL Normal 74 - 99 [facility] Comment on above: Performed By: #### C MP #### [address] [address] HCO3 (Bld) [Moles/Vol] 25 mmol/L Normal 21 - 32 [facility] Comment on above: Performed By: #### C MP #### [address] [address] Potassium [Moles/Vol] 3.9 mmol/L Normal 3.5 - 5.3 [facility] Comment on above: Performed By: #### C MP #### [address] [address] Protein [Mass/Vol] 7.7 g/dL Normal 6.4 - 8.2 [facility] Comment on above: Performed By: #### C MP #### [address] [address] Sodium [Moles/Vol] 139 mmol/L Normal 136 - 145 [facility] Comment on above: Performed By: #### C MP #### [address] [address] Urea nitrogen [Mass/Vol] 8 mg/dL Normal 6 - 23 [facility] Comment on above: Performed By: #### C MP #### [address] [address] Complete Blood Count + Mumtaz tam 04-30-2022 Basophils/100 WBC (Bld) 0.5 % 0.0 - 2.0 [facility] Work Phone: Erythrocyte distribution width (RBC) [Ratio] 12.0 % See Below [facility] Work Phone: Comment on above: Reference Range: 11. 5 - 14.5 Hematocrit (Bld) [Volume fraction] 41.5 % See Below [facility] Work Phone: Comment on above: Reference Range: 36. 0 - 46.0 Hemoglobin (Bld) [Mass/Vol] 14.2 g/dL See Below [facility] Work Phone: Comment on above: Reference Range: 12. 0 - 16.0 Lymphocytes/100 WBC (Bld) 43.0 % See Below [facility] Work Phone: [phone] Comment on above: Reference Range: 13. 0 - 44.0 MCHC (RBC) [Mass/Vol] 34.3 g/dL See Below [facility] Work Phone: [phone] Comment on above: Reference Range: 32. 0 - 36.0 MCV (RBC) [Entitic vol] 94 fL 80 - 100 [facility] Work Phone: [phone] Monocytes/100 WBC (Bld) 5.1 % 2.0 - 10.0 [facility] Work Phone: [phone] Neutrophils/100 WBC (Bld) 49.3 % See Below [facility] Work Phone: [phone] Comment on above: Reference Range: 40. 0 - 80.0 Platelets (Bld) [#/Vol] 200 10*3/uL 150 - 450 [facility] Work Phone: [phone] RBC (Bld) [#/Vol] 4.39 {x10E12/L} See Below [facility] Work Phone: [phone] Comment on above: Reference Range: 4.0 0 - 5.20 WBC (Bld) [#/Vol] 6.1 10*3/uL 4.4 - 11.3 [facility] Work Phone: Complete Blood Count + Differential 0.00 {x10E9/L} See Below [facility] Work Phone: [phone] Comment on above: Reference Range: 0.0 0 - 0.10 Complete Blood Count + Differential 0.10 {x10E9/L} See Below [facility] Work Phone: [phone] Comment on above: Reference Range: 0.0 0 - 0.70 Complete Blood Count + Differential 0.30 {x10E9/L} See Below [facility] Work Phone: Comment on above: Reference Range: 0.1 0 - 1.00 Complete Blood Count + Differential 2.60 {x10E9/L} See Below [facility] Work Phone: Comment on above: Reference Range: 1.2 0 - 4.80 Complete Blood Count + Differential 3.00 {x10E9/L} See Below [facility] Work Phone: Comment on above: Reference Range: 1.2 0 - 7.70 Percent differential counts (%) should be interpreted in the context of the absolute cell counts (cells/L). Complete Blood Count + Differential 2.1 % 0.0 - 6.0 [facility] Work Phone: Complete Blood Count + Differential 0.1 {/100_WBC} [facility] Work Phone: FERRITINon 04-30-2022 FERRITIN 52 ug/L Normal 8 - 150 [facility] Comment on above: Performed By: #### F ERRI #### [address] [address] Ferritin, Serumon 04-30-2022 Ferritin [Mass/Vol] 52 ug/L 8 - 150 [facility] Internal Medicine Work Phone: IRON + TIBCon 04-30-2022 % SATURATION 36 % Normal 25 - 45 [facility] Comment on above: Performed By: #### I RONT #### [address] [address] Iron [Mass/Vol] 136 ug/dL Normal 35 - 150 [facility] Comment on above: Performed By: #### I RONT #### [address] [address] TIBC 376 ug/dL Normal 240 - 445 [facility] Comment on above: Performed By: #### I RONT #### [address] [address] LIPID PANEL (CORONARY RISK 2 )on 04-30-2022 Cholesterol [Mass/Vol] 121 mg/dL Normal 0 - 199 [facility] Comment on above: Result Comment: . AGE DESIRABLE BORDERLINE HIGH HIGH 0-19 Y 0 - 169 170 - 199 >/= 200 20-24 Y 0 - 189 190 - 224 >/= 225 >24 Y 0 - 199 200 - 239 >/= 240 All ranges are based on fasting samples. Specific therapeutic targets will vary based on patient-specific cardiac risk. . Pediatric guidelines reference:Pediatrics 2011, 128(S5). Adult guidelines reference: NCEP ATPIII Guidelines, BUZZ 2001, 258:2486-97 . Venipuncture immediately after or during the administration of Metamizole may lead to falsely low results. Testing should be performed immediately prior to Metamizole dosing. Performed By: #### L IPID #### [address] [address] Cholesterol in HDL [Mass/Vol] 42.0 mg/dL Normal [facility] Comment on above: Result Comment: . AGE VERY LOW LOW NORMAL HIGH 0-19 Y < 35 < 40 40-45 ---- 20-24 Y ---- < 40 >45 ---- >24 Y ---- < 40 40-60 >60 . Performed By: #### L IPID #### [address] [address] Cholesterol in LDL [Mass/Vol] 64 mg/dL Normal 0 - 99 [facility] Comment on above: Result Comment: . NEAR BORD AGE DESIRABLE OPTIMAL HIGH HIGH VERY HIGH 0-19 Y 0 - 109 --- 110-129 >/= 130 ---- 20-24 Y 0 - 119 --- 120-159 >/= 160 ---- >24 Y 0 - 99 100-129 130-159 160-189 >/=190 . Performed By: #### L IPID #### [address] [address] Cholesterol in VLDL [Mass/Vol] 15 mg/dL Normal 0 - 40 [facility] Comment on above: Performed By: #### L IPID #### [address] [address] Cholesterol.total/Cho lesterol in HDL [Mass ratio] 2.9 {ratio} Normal [facility] Comment on above: Result Comment: REF VALUES DESIRABLE < 3.4 HIGH RISK > 5.0 Performed By: #### L IPID #### [address] [address] Triglyceride [Mass/Vol] 74 mg/dL Normal 0 - 149 [facility] Comment on above: Result Comment: . AGE DESIRABLE BORDERLINE HIGH HIGH VERY HIGH 0 D-90 D 19 - 174 ---- ---- ---- 91 D- 9 Y 0 - 74 75 - 99 >/= 100 ---- 10-19 Y 0 - 89 90 - 129 >/= 130 ---- 20-24 Y 0 - 114 115 - 149 >/= 150 ---- >24 Y 0 - 149 150 - 199 200- 499 >/= 500 . Venipuncture immediately after or during the administration of Metamizole may lead to falsely low results. Testing should be performed immediately prior to Metamizole dosing. Performed By: #### L IPID #### [facility] [address] [id number] Laboratory - Chemistry and C hemistry - challengeon 04-30-2022 Albumin BCP dye [Mass/Vol] 4.8 g/dL 3.4 - 5.0 [facility] Internal [facility] Work Phone: ALP [Catalytic activity/Vol] 43 U/L 33 - 110 [facility] Work Phone: ALT With P-5'-P [Catalytic activity/Vol] 15 U/L 7 - 45 [facility] Work Phone: Comment on above: Patients treated wit h Sulfasalazine may generate falsely decreased results for ALT. Anion gap [Moles/Vol] 12 mmol/L 10 - 20 [facility] Internal [facility] Work Phone: AST With P-5'-P [Catalytic activity/Vol] 14 U/L 9 - 39 [facility] Internal [facility] Work Phone: Bilirubin [Mass/Vol] 0.6 mg/dL 0.0 - 1.2 [facility] Internal [facility] Work Phone: Calcium [Mass/Vol] 9.5 mg/dL 8.6 - 10.3 [facility] Work Phone: Chloride [Moles/Vol] 106 mmol/L 98 - 107 [facility] Internal Medicine Work Phone: CO2 [Moles/Vol] 25 mmol/L 21 - 32 [facility] Work Phone: Creatinine [Mass/Vol] 0.68 mg/dL See Below [facility] Medicine Work Phone: Comment on above: Reference Range: 0.5 0 - 1.05 Glucose [Mass/Vol] 82 mg/dL 74 - 99 [facility] Work Phone: Iron [Mass/Vol] 136 ug/dL 35 - 150 [facility] Work Phone: Iron binding capacity [Mass/Vol] 376 ug/dL 240 - 445 [facility] Work Phone: Potassium [Moles/Vol] 3.9 mmol/L 3.5 - 5.3 [facility] Work Phone: Protein [Mass/Vol] 7.7 g/dL 6.4 - 8.2 [facility] Work Phone: Sodium [Moles/Vol] 139 mmol/L 136 - 145 [facility] Medicine Work Phone: TSH Qn 0.90 m[IU]/L See Below [facility] Work Phone: Comment on above: Reference Range: 0.4 4 - 3.98 TSH testing is performed using different testing methodology at [facility] than at formerly [facility]. Direct result comparisons should only be made within the same method. Urea nitrogen [Mass/Vol] 8 mg/dL 6 - 23 [facility] Medicine Work Phone: Lipid Panelon 04-30-2022 Cholesterol [Mass/Vol] 121 mg/dL 0 - 199 [facility] Work Phone: Comment on above: . AGE DESIRABLE BORD RONALDO HIGH HIGH 0-19 Y 0 - 169 170 - 199 >/= 200 20-24 Y 0 - 189 190 - 224 >/= 225 >24 Y 0 - 199 200 - 239 >/= 240 All ranges are based on fasting samples. Specific therapeutic targets will vary based on patient-specific cardiac risk.. Pediatric guidelines reference:Pediatrics 2011, 128(S5). Adult guidelines reference: NCEP ATPIII Guidelines, BUZZ 2001, 258:2486-97. Venipuncture immediately after or during the administration of Metamizole may lead to falsely low results. Testing should be performed immediately prior to Metamizole dosing. Cholesterol in HDL [Mass/Vol] 42.0 mg/dL [facility] Work Phone: Comment on above: . AGE VERY LOW LOW N ORMAL HIGH 0-19 Y < 35 < 40 40-45 ---- 20- 24 Y ---- < 40 >45 ---- >24 Y ---- < 40 40-60 >60. Cholesterol in LDL [Mass/Vol] 64 mg/dL 0 - 99 [facility] Work Phone: Comment on above: . NEAR BORD AGE TOMAS RABLE OPTIMAL HIGH HIGH VERY HIGH 0-19 Y 0 - 109 --- 110-129 >/= 130 ---- 20-24 Y 0 - 119 --- 120-159 >/= 160 ---- >24 Y 0 - 99 100-129 130-159 160-189 >/=190. Cholesterol.total/Cho lesterol in HDL [Mass ratio] 2.9 {ratio} [facility] Work Phone: Comment on above: REF VALUESDESIRABLE < 3.4HIGH RISK > 5.0 Triglyceride [Mass/Vol] 74 mg/dL 0 - 149 [facility] Work Phone: Comment on above: . AGE DESIRABLE BORD RONALDO HIGH HIGH VERY HIGH 0 D-90 D 19 - 174 ---- ---- ----91 D- 9 Y 0 - 74 75 - 99 >/= 100 ---- 10-19 Y 0 - 89 90 - 129 >/= 130 ---- 20-24 Y 0 - 114 115 - 149 >/= 150 ---- >24 Y 0 - 149 150 - 199 200- 499 >/= 500. Venipuncture immediately after or during the administration of Metamizole may lead to falsely low results. Testing should be performed immediately prior to Metamizole dosing. Lipid Panel 15 mg/dL 0 - 40 [facility] Work Phone: No Panel Informationon 04-30 36 % 25 - 45 [facility] Work Phone: >90 >90 [facility] Work Phone: Comment on above: CALCULATIONS OF ANDRES MATED GFR ARE PERFORMED USING THE 2020 CKD-EPI STUDY REFIT EQUATION WITHOUT THE RACE VARIABLE FOR THE IDMS-TRACEABLE CREATININE METHODS.https://jasn.asnjournals.org/content/early// N.4910892182 TSH WITH REFLEX TO FREE T4 I F ABNORMALon 04-30-2022 TSH Qn 0.90 m[IU]/L Normal 0.44 - 3.98 [facility] Comment on above: Result Comment: TSH testing is performed using different testing methodology at [facility] than at other [facility]. Direct result comparisons should only be made within the same method. Performed By: #### T HYDS #### [address] [address] VITAMIN B12on 04-30-2022 Cobalamin (Vitamin B12) [Mass/Vol] 203 pg/mL Low 211 - 911 [facility] Comment on above: Performed By: #### V TB12 #### [address] [address] VITAMIN D, 25-HYDROXYon 04-21 0-2021 VITAMIN D, 25-HYDROXY 37 ng/mL Normal [facility] Comment on above: Result Comment: . DEFICIENCY: < 20 NG/ML INSUFFICIENCY: 20-29 NG/ML SUFFICIENCY: 30-100 NG/ML THIS ASSAY ACCURATELY QUANTIFIES THE SUM OF VITAMIN D3, 25-HYDROXY AND VIT D2,25-HYDROXY. Performed By: #### V TDOH #### [address] [address] Vitamin B12, Serumon 022 Cobalamin (Vitamin B12) [Mass/Vol] 203 pg/mL below low threshold 211 - 911 [facility] Work Phone: Vitamin D 25-Hydroxyon 04-30 25-hydroxyvitamin D3 [Mass/Vol] 37 ng/mL [facility] Work Phone: Comment on above: .DEFICIENCY: < 20 NG /MLINSUFFICIENCY: 20-29 NG/MLSUFFICIENCY: 30-100 NG/MLTHIS ASSAY ACCURATELY QUANTIFIES THE SUM OFVITAMIN D3, 25-HYDROXY AND VIT D2,25-HYDROXY. Echocardiogramon 04-28-2022 [facility]ch[facility]ography [facility] [place] [address] [phone], TRANSTHORACIC ECHOCARDIOGRAM REPORT Patient Name: SMITA Francia Physician: [id number] Jon CHU Study Date: 04/28/2022 Referring [id number] MARIJA DAVID Physician: SARAHI MRN/PID: [id number] PCP: Accession/Order#: [id number] Department [facility] Echo Lab Location: Date of : 1985 Fellow: Gender: F Nurse: Admit Date: Occupational Therapist Assistants: Kassy Harrison RVT, [facility] Admission Status: Outpatient Additional Staff: Height: 167.64 cm CC Report to: Weight: 66.68 kg Study Type: Echocardiogram BSA: 1.75 m2 Blood Pressure: 118 /68 mmHg Diagnosis/ICD: R00.2-Palpitations; [id number] and giddiness Indication: Dizziness,Palps Procedure/CPT: Echo Complete w Full [id number] Patient History: Pertinent History: No previous echo. Study Detail: The following Echo studies were performed: 2D, M-Mode, Doppler and color flow. A bubble study was not performed. The patient was awake. PHYSICIAN INTERPRETATION: Left Ventricle: The left ventricular systolic function is normal. There are no regional wall motion abnormalities. The left ventricular cavity size is normal. Spectral Doppler shows a normal pattern of left ventricular diastolic filling. Left Atrium: The left atrium is normal in size. Right Ventricle: The right ventricle is normal in size. There is normal right ventricular global systolic function. Right Atrium: The right atrium is normal in size. Aortic Valve: The aortic valve appears normal. There is no evidence of aortic valve regurgitation. The peak instantaneous gradient of the aortic valve is 6.2 mmHg. The mean gradient of the aortic valve is 3.0 mmHg. Mitral Valve: The mitral valve is normal in structure. There is trace mitral valve regurgitation. Tricuspid Valve: The tricuspid valve is structurally normal. There is trace tricuspid regurgitation. Pulmonic Valve: The pulmonic valve is structurally normal. There is mild pulmonic valve regurgitation. Pericardium: There is no pericardial effusion noted. Aorta: The aortic root is normal. CONCLUSIONS: 1. The left ventricular systolic function is normal. QUANTITATIVE DATA SUMMARY: 2D MEASUREMENTS: Normal Ranges: Ao Root d: 2.60 cm (2.0-3.7cm) LAs: 3.30 cm (2.7-4.0cm) IVSd: 0.90 cm (0.6-1.1cm) LVPWd: 0.93 cm (0.6-1.1cm) LVIDd: 4.61 cm (3.9-5.9cm) LVIDs: 3.16 cm LV Mass Index: 80.9 g/m2 LV % FS 31.5 % LA VOLUME: Normal Ranges: LA Vol A4C: 21.2 ml (22+/-6mL/m2) LA Vol A2C: 21.0 ml LA Vol BP: 23.7 ml LA Vol Index A4C: 12.1ml/m2 LA Vol Index A2C: 11.9 ml/m2 LA Vol Index BP: 13.5 ml/m2 LA Area A4C: 10.9 cm2 LA Area A2C: 9.6 cm2 LA [place] A4C: 4.8 cm LA [place] A2C: 3.8 cm LA Volume Index: 11.5 ml/m2 LA Vol A4C: 20.3 ml LA Vol A2C: 20.1 ml M-MODE MEASUREMENTS: Normal Ranges: AoV Exc: 1.90 cm (1.5-2.5cm) AORTA MEASUREMENTS: Normal Ranges: AoV Exc: 1.90 cm (1.5-2.5cm) LV SYSTOLIC FUNCTION BY 2D PLANIMETRY (MOD): Normal Ranges: EF-A4C View: 60.0 % (>55%) EF-A2C View: 67.2 % EF-Biplane: 60.8 % LV DIASTOLIC FUNCTION: Normal Ranges: MV Peak E: 0.83 m/s (0.7-1.2 m/s) MV Peak A: 0.67 m/s (0.42-0.7 m/s) E/A Ratio: 1.23 (1.0-2.2) MV e' 0.10 m/s (>8.0) MV lateral e' 0.13 m/s MV medial e' 0.10 m/s E/e' Ratio: 8.29 (<8.0) MITRAL VALVE: Normal Ranges: MV DT: 151 msec (150-240msec) AORTIC VALVE: Normal Ranges: AoV Vmax: 1.25 m/s (<1.7m/s) AoV Peak P.2 mmHg (<20mmHg) AoV Mean P.0 mmHg (1.7-11.5mmHg) LVOT Max Shubham: 1.02 m/s (<1.1m/s) AoV VTI: 27.00 cm (18-25cm) LVOT VTI: 20.40 cm LVOT Diameter: 2.00 cm (1.8-2.4cm) AoV Area, VTI: 2.37 cm2 (2.5-5.5cm2) AoV Area,Vmax: 2.56 cm2 (2.5-4.5cm2) AoV Dimensionless Index: 0.76 RIGHT VENTRICLE: RV 1 3.84 cm RV 2 2.83 cm RV 3 7.75 cm TAPSE: 26.4 mm TRICUSPID VALVE/RVSP: Normal Ranges: Peak TR Velocity: 2.14 m/s RV Syst Pressure: 17 mmHg (< 30mmHg) PULMONIC VALVE: Normal Ranges: PV Accel Time: 165 msec (>120ms) PV Max Shubham: 0.9 m/s (0.6-0.9m/s) PV Max P.3 mmHg PIEDV: 0.64 m/s PADP: 4.6 mmHg [id number] Jon Hill MD Electronically signed on 04/28/2022 at 5:50:36 PM Final Normal [facility] EKG Electrocardiogram- 12 [place] 04-21-2022 EKG study see scanned document [facility] [place] [facility] Work Phone: Office Visit (Internal Medic ine)on 04-21-2022 Follow-up visit Diagnoses/Problems Assessed Heart palpitations (785.1) (R00.2) Sinus bradycardia (427.89) (R00.1) Dizziness (780.4) (R42) Lightheadedness (780.4) (R42) Other malaise and fatigue (780.79) (R53.81,R53.83) Vitamin D deficiency (268.9) (E55.9) Orders Dizziness, Heart palpitations, Sinus bradycardia Echocardiogram; Status:Hold For - Scheduling; Requested for:21Apr2022; Perform:[facility] ([place]); Order Comments:Dr Hill; Due:20Jul2022;Ordered; For:Dizziness, Heart palpitations, Sinus bradycardia; Ordered By:Marija David; Holter Monitor 3-14 Days; Status:Hold For - Scheduling; Requested for:21Apr2022; Perform:[facility]; Order Comments:[address] Hill to read; Due:20Jul2022;Ordered; For:Dizziness, Heart palpitations, Sinus bradycardia; Ordered By:Marija David; Xray Chest 2 View PA + Lateral; Status:Hold For - Scheduling; Requested for:21Apr2022; Perform:[facility]; Due:20Jul2022;Ordered; For:Dizziness, Heart palpitations, Sinus bradycardia; Ordered By:Marija David; Radiologist to Determine Optimal Study : Y What are the patient's signs and symptoms? : heart palp Heart palpitations, Other malaise and fatigue, Sinus bradycardia Lipid Panel; Status:Active; Requested for:21Apr2022; Perform:Lab Services - Lab To Draw (Blood Test); Due:20Jul2022;Ordered; For:Heart palpitations, Other malaise and fatigue, Sinus bradycardia; Ordered By:Marija David; Other malaise and fatigue Complete Blood Count + Differential; Status:Active; Requested for:21Apr2022; Perform:Lab Services - Lab To Draw (Blood Test); Due:20Jul2022;Ordered; For:Other malaise and fatigue; Ordered By:Marija David; Comprehensive Metabolic Panel; Status:Active; Requested for:21Apr2022; Perform:Lab Services - Lab To Draw (Blood Test); Due:20Jul2022;Ordered; For:Other malaise and fatigue; Ordered By:Marija David; Ferritin, Serum; Status:Active; Requested for:21Apr2022; Perform:Lab Services - Lab To Draw (Blood Test); Due:20Jul2022;Ordered; For:Other malaise and fatigue; Ordered By:Marija David; Iron + TIBC, Serum; Status:Active; Requested for:21Apr2022; Perform:Lab Services - Lab To Draw (Blood Test); Due:20Jul2022;Ordered; For:Other malaise and fatigue; Ordered By:Marija David; TSH WITH REFLEX TO FREE T4 IF ABNORMAL; Status:Active; Requested for:21Apr2022; Perform:Lab Services - Lab To Draw (Blood Test); Due:20Jul2022;Ordered; For:Other malaise and fatigue; Ordered By:Marija David; Vitamin B12, Serum; Status:Active; Requested for:21Apr2022; Perform:Lab Services - Lab To Draw (Blood Test); Due:20Jul2022;Ordered; For:Other malaise and fatigue; Ordered By:Marija David; SocHx: Non-smoker Tobacco Use Screening; Status:Complete; Done: 21Apr2022 Perform:Not Applicable;Ordered; For:SocHx: Non-smoker; Ordered By:Bhakti Christine; Vitamin D deficiency Vitamin D 25-Hydroxy; Status:Active; Requested for:21Apr2022; Perform:Lab Services - Lab To Draw (Blood Test); Due:20Jul2022;Ordered; For:Vitamin D deficiency; Ordered By:Marija David; Patient Discussion/Summary f/u in 1-2 mo with testing set up 7 day bardy - sinus francisco, fatigue, heart palp, lightheaded echo cXR Labs Provider Impressions Cardio concerns - will order gen labs and testing Patient to follow diet low in cholesterol, fat, and sodium. Patient is advised to increase Exercise. Patient is recommended to lose weight. Reviewed Meds and discussed common side effects Continue as directed Patient is strongly advised to be compliant with recommendations. Return to Clinic sooner if needed. Patient denies further questions/concerns at this time Chief Complaint EST NEW. C/O PALPITATIONS/ FLUTTERING ON/OFF, LIGHTHEADED/ DIZZINESS History of Present IllnessPatient presents today for.... 1 to est as new patient 2 cardio concerns heart palp, light headed, dizzy, fatigue Most of these symptoms started after she was diagnosed with COVID Most commonly she notes waking up in the middle of the night with symptoms and started to exp this the week of COVID which she has Sep 2021 3 fam hx mom side cardio concerns and breast cancer Breast cancer in her grandmother and great aunt [place] with her aunt 3 x under age 50 sister cardiac pacemaker age 35 Father side colon cancer in her dad and grandfather - both were fairly progressed when diagnosed maybe in their 60s. 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 she believes 3 Ft of her small intestine was removed. overall she feels ok but questions absorption issues and states her bowels are always slightly more on the loose side 4 Preventative PAP DEXA suggest age 50-55 (more content not included)... Normal [place] Tobacco Screening.on 022 Adult depression screening assessment No [facility] Work Phone: Fall risk assessment a) No falls within the last year [facility] Work Phone: Tobacco use status CPHS b) No [facility] Work Phone: Vital Signs Date Time Vital Sign Value Performing Clinician Dulce solis 04-20-2024 11:12-0400 Body mass index (BMI) [Ratio] 24.45 kg/m2 Griselda Mckinney APRN.MAKE READY WORKER Work Phone: [facility] 04-20-2024 11:12-0400 Body temperature 99 [degF] Griselda Mckinney APRN.MAKE READY WORKER Work Phone: [facility] 04-20-2024 11:12-0400 Body weight 66.13 kg Griselda Mckinney APRN.CNP Work Phone: [facility] 04-20-2024 11:12-0400 Diastolic blood pressure 84 mm[Hg] Griselda Mckinney APRN.MAKE READY WORKER Work Phone: [facility] 04-20-2024 11:12-0400 Heart rate 64 /min Griselda Paigeman SOLE PAINTER.MAKE READY WORKER Work Phone: [facility] 04-20-2024 11:12-0400 Respiratory rate 16 /min Griselda Paigeman SOLE PAINTER.MAKE READY WORKER Work Phone: [facility] 04-20-2024 11:12-0400 SaO2% (BldA) [Mass fraction] 98 % Griselda Paigeman SOLE PAINTER.MAKE READY WORKER Work Phone: [facility] 04-20-2024 11:12-0400 Systolic blood pressure 102 mm[Hg] Griselda Paigeman SOLE PAINTER.MAKE READY WORKER Work Phone: [facility] 08-01-2022 10:22-0500 Body height 167.64 cm Marija David Work Phone: IN-Pubmymjtrt-Kjfv [facility] [address] Work Phone: 08-01-2022 10:22-0500 Body mass index (BMI) [Ratio] 23.95 kg/m2 Marija David Work Phone: GI-Oxhyifdsov-Zzvb [address] Work Phone: 08-01-2022 10:22-0500 Body surface area Derived from formula 1.76 m2 Marija David Work Phone: TT-Yqrqvzcsnv-Kesc [address] Work Phone: 08-01-2022 10:22-0500 Body weight 67.31 kg Marija David Work Phone: MQ-Xjkoriilfl-Pfuz [address] Work Phone: 08-01-2022 10:22-0500 Diastolic blood pressure 76 mm[Hg] Marija Tr Yuan Work Phone: VA-Sjvbphxuiy-Dlfg [facility] [address] Work Phone: 08-01-2022 10:22-0500 Heart rate 83 /min Marija David Work Phone: BE-Nulrcghvkj-Uggp [address] Work Phone: 08-01-2022 10:22-0500 SaO2% (BldA) [Mass fraction] 98 % Marija David Work Phone: US-Ebeumaivfe-Tnzg [address] Work Phone: 08-01-2022 10:22-0500 Systolic blood pressure 130 mm[Hg] Marija David Work Phone: SC-Lnuftbejpv-Gqtb and [address] Work Phone: 04-21-2022 11:05-0400 Body height 165.1 cm Marija David Work Phone: [facility] Work Phone: 04-21-2022 11:05-0400 Body mass index (BMI) [Ratio] 24.79 kg/m2 Marija David Work Phone: [facility] Work Phone: 04-21-2022 11:05-0400 Body surface area Derived from formula 1.75 m2 Marija David Work Phone: [facility] Work Phone: 04-21-2022 11:05-0400 Body weight 67.59 kg Marija David Work Phone: [facility] Work Phone: 04-21-2022 11:05-0400 Diastolic blood pressure 74 mm[Hg] Marija David Work Phone: [facility] Work Phone: 04-21-2022 11:05-0400 Heart rate 57 /min Marija David Work Phone: [facility] Work Phone: 04-21-2022 11:05-0400 Systolic blood pressure 117 mm[Hg] Marija David Work Phone: [facility] Work Phone: Encounters Encounter Date Encounter Type Care Provider Facility Start: 07-20-2024 End: 07-20-2024 Telephone encounter Andrea Whitfield DO Work Phone: [facility] [place] Comment on above: FYI-No Action Needed Start: 04-21-2024 End: 04-21-2024 Subsequent hospital visit by physician [facility] Work Phone: Nuclear Medicine Comment on above: Calculus of gallblad eun without cholecystitis without obstruction [K80.20] Start: 04-21-2024 End: 04-21-2024 ambulatory GRISELDA RUTH Facility:[facility] Start: 04-21-2024 End: 04-21-2024 Subsequent hospital visit by physician Ct Prep [facility] Cat Scan Comment on above: Calculus of gallblad eun without cholecystitis without obstruction [K80.20] Start: 04-20-2024 End: 04-20-2024 ambulatory GRISELDA MCKINNEY Facility:[facility] Start: 04-20-2024 End: 04-20-2024 Patient encounter procedure Griselda Mckinney SOLE PAINTER.MAKE READY WORKER Work Phone: [facility] [place] Comment on above: Calculus of gallblad eun without cholecystitis without obstruction (Primary Dx); Periumbilic abdominal rigidity; RUQ pain; Abdominal right upper quadrant rigidity; Leukocytosis, unspecified type Start: 04-20-2024 End: 04-20-2024 ambulatory GRISELDA HARRISUTZMAN Facility:[facility] Start: 04-19-2024 Telephone encounter Andrea sung DO Work Phone: [facility] [place] Start: 01-28-2023 ambulatory SARAHI DAVID Facility:[id number] Start: 10-30-2022 AUDIT Marija lo Work Phone: HD-Cwarsehcxp-Tknalv d [address] Work Phone: Start: 08-04-2022 ambulatory Ms. Marija David Facility:[id number] Start: 08-01-2022 Office outpatient ne w 45 minutes Marija David Work Phone: PD-Obywaxfmvg[facility] [address] [place] Work Phone: Start: 08-01-2022 ambulatory PA-C MARIJAAGNES PRICEENHALL Facility:[id number] Start: 07-03-2022 Chart Update Marija Marin nhall Work Phone: [facility] Work Phone: Start: 07-02-2022 ambulatory Ms. Marija David Facility:[id number] Start: 06-20-2022 AUDIT Marija carltonall Work Phone: [facility] Work Phone: Start: 06-19-2022 AUDIT Marija Marin nhall Work Phone: [facility] Work Phone: Start: 05-14-2022 ambulatory MsJacque David Facility:[id number] Start: 05-01-2022 Chart Update Marija lo Work Phone: [facility] Work Phone: Start: 04-29-2022 Chart Update Marija lo Work Phone: [facility] Work Phone: Start: 04-28-2022 ambulatory . Marija David Facility:[id number] Start: 04-21-2022 ambulatory PA-C MARIJA Armando YUAN Facility:[id number] Start: 04-21-2022 Office outpatient ne w 45 minutes Marijaagnes David Work Phone: [facility] Work Phone: Start: 11-18-2021 ambulatory Ms. Gela Iglesiastraci Facility:[id number] Start: 03-21-2021 Encounter for gynecological examination (general) (routine) without abnormal findings Marija David Work Phone: [facility] Work Phone: Procedures Date Procedure Procedure Detail Performing Clinician Start: 04-21-2024 Hepatobil syst imag inc gb w/pharma intervenj Griselda Mckinney SOLE PAINTER.MAKE READY WORKER Work Phone: Start: 04-21-2024 Us abdominal real ti me w/image limited Griselda Mckinney SOLE PAINTER.MAKE READY WORKER Work Phone: Start: 04-21-2024 Ct abdomen & pelvis w/contrast material Griselda Mckinney SOLE PAINTER.MAKE READY WORKER Work Phone: Start: 01-28-2023 Follow-up visit Start: 04-28-2022 Echocardiography Marija David Work Phone: Start: 03-21-2021 Destructive procedure R mike David Work Phone: Comment on above: uterine; Start: 09-21-2019 Dilation and curettage Marija David Work Phone: Surgical procedure Marija David Work Phone: Comment on above: COLOSTOMY REVERSAL. HAD PART OF HER COLON REMOVED AND HAD A COLOSTOMY AN IN THE NICU; Plan of Treatment Date Care Activity Detail Author Start: 08-03-2025 Screening for malign ant neoplasm of cervix Cervical Cancer Screening [facility] Start: 05-22-2024 Covid-19 Vaccine ( season) Covid-19 Vaccine () [facility] Start: 05-22-2024 Influenza vaccination Influenza Vacc ine (#1) [facility] Start: 04-21-2024 End: 04-21-2024 Patient encounter procedure 04/21/2024 2:30 PM EDT Appointment Radiology [address] [place], [place] [id number] Calculus of gallbladder without cholecystitis without obstruction [K80.20] Radiology Comment on above: Calculus of gallblad eun without cholecystitis without obstruction [K80.20] Start: 04-21-2024 End: 04-21-2024 Patient encounter procedure Cat Scan Comment on above: Calculus of gallblad eun without cholecystitis without obstruction [K80.20] Start: 04-20-2024 End: 04-20-2024 Patient encounter procedure 04/20/2024 11:00 AM EDT Office Visit [facility] [place] [address] [place] [address] Griselda Mckinney APRN.MAKE READY WORKER [address] [place] [address] Follow-Up - Abdominal Pain [facility] [place] Comment on above: Follow-Up - Abdomina l Pain Start: 05-22-2023 Covid-19 Vaccine ( season) Covid-19 Vaccine () [facility] Start: 05-22-2023 Covid-19 Vaccine () Covid-19 Vaccine () [facility] Start: 01-28-2023 FUV, Provider: Enrico Stovall, Status: Pen, Time: 9:45 AM FUV, Provider: Enrico Stovall, Status: Pen, Time: 9:45 AM AA-Zxbujjjxqs-Gepszl d [address] Work Phone: Start: 11-18-2022 LOOP IMPLA, Provider : ANABAPTISM SCHEDULER MAINTENANCE 1,SMCCATH1, Status: Pen, Time: 8:00 AM LOOP IMPLA, Provider: ANABAPTISM SCHEDULER MAINTENANCE 1,SMCCATH1, Status: Pen, Time: 8:00 AM RU-Grpntmurkb-Jxhpil d [address] Work Phone: Start: 08-01-2022 NPV, Provider: Enrico Stovall, Status: Pen, Time: 10:15 AM NPV, Provider: Enrico Stovall, Status: Pen, Time: 10:15 AM -[facility] Work Phone: Start: 06-27-2022 HOLTER MON, Provider : ANABAPTISM DIAGNOSTIC THERAPISTSACHA, Status: Pen, Time: 3:00 PM HOLTER MON, Provider: ANABAPTISM DIAGNOSTIC [facility]ERAPISTWE[facility]LA[facility] OUTPAT[facility] MED[facility] CENTERJOCELYNE, Status: Pen, Time: 3:00 PM [facility] Work Phone: Start: 05-28-2022 FUV, Provider: Marija David, Status: Pen, Time: 10:20 AM FUV, Provider: Marija David, Status: Pen, Time: 10:20 AM [facility] Work Phone: Start: 04-28-2022 EVENT LUDWIN, Provider : ANABAPTISM DIAGNOSTIC THERAPIST,SMCMONITOR, Status: Pen, Time: 12:30 PM EVENT LUDWIN, Provider: ANABAPTISM DIAGNOSTIC THERAPIST,SMCMONITOR, Status: Pen, Time: 12:30 PM [facility] Work Phone: Start: 04-28-2022 ECHO, Provider: ANABAPTISM HHVI ECHO 2,SMCECHO2, Status: Pen, Time: 11:30 AM ECHO, Provider: ANABAPTISM HHVI ECHO 2,SMCECHO2, Status: Pen, Time: 11:30 AM [facility] Work Phone: Start: 10-06-2017 Urine microalbumin profile DTaP,Tdap,Td Vaccine (6 - Td or Tdap) [facility] Start: 2004 Anxiety Screening Anxiety Screening [facility] Start: 2004 Depression Screening Depression Scre ening [facility] Start: 2004 Hepatitis C screening Hepatitis C Sc velvet [facility] End: 05-20-2025 CT Abdomen and Pelvis W contrast IV CT ABD/PEL W IVCON Radiology STAT Calculus of gallbladder without cholecystitis without obstruction Periumbilic abdominal rigidity RUQ pain Abdominal right upper quadrant rigidity Leukocytosis, unspecified type 1 Occurrences starting 04/20/2024 until 05/20/2025 [facility] Work Phone: Comment on above: 1 Occurrences starti ng 04/20/2024 until 05/20/2025 End: 05-20-2025 NM Biliary ducts and Gallbladder Views for patency of biliary structures and ejection fraction W sincalide and W radionuclide IV NM HEPATOBILIARY W EF AND/OR RX Radiology STAT Calculus of gallbladder without cholecystitis without obstruction Periumbilic abdominal rigidity RUQ pain Abdominal right upper quadrant rigidity Leukocytosis, unspecified type 1 Occurrences starting 04/20/2024 until 05/20/2025 [facility] Comment on above: 1 Occurrences starti ng 04/20/2024 until 05/20/2025 End: 05-20-2025 US Abdomen RUQ US ABD RIGHT UPPER QUADRANT Radiology STAT Calculus of gallbladder without cholecystitis without obstruction Periumbilic abdominal rigidity RUQ pain Abdominal right upper quadrant rigidity Leukocytosis, unspecified type 1 Occurrences starting 04/20/2024 until 05/20/2025 [facility] Comment on above: 1 Occurrences starti ng 04/20/2024 until 05/20/2025 Immunizations Immunization Date Immunization Notes Care Provider Nasra gallegos 12-25-2021 Comirnaty 30 MCG/0.3 ML Intramuscular Suspension Marija B Cutler Work Phone: [facility] Work Phone: 12-03-2021 Comirnaty 30 MCG/0.3 ML Intramuscular Suspension Marija B Cutler Work Phone: [facility] Work Phone: 07-25-2020 influenza, injectabl e, quadrivalent, contains preservative Marija David Work Phone: [facility] 07-25-2020 influenza virus vaccine, unspecified formulation Andrea Whitfield DO Work Phone: [facility] 08-11-2016 influenza, seasonal, injectable, preservative free Andrea Whitfield DO Work Phone: [facility] 10-06-2007 tetanus toxoid, adsorbed Andrea Whitfield DO Work Phone: [facility] Work Phone: 10-06-2007 tetanus toxoid, redu saida diphtheria toxoid, and acellular pertussis vaccine, adsorbed Marija B Yuan Work Phone: [facility] Work Phone: 06-05-1999 hepatitis B vaccine, pediatric or pediatric/adolescent dosage Marija David Work Phone: [facility] Work Phone: 06-05-1999 measles, mumps and rubella virus vaccine Marija David Work Phone: [facility] Work Phone: 04-25-1992 diphtheria, tetanus toxoids and acellular pertussis vaccine, unspecified formulation Marija David Work Phone: [facility] Work Phone: 04-25-1992 trivalent poliovirus vaccine, live, oral Marija David Work Phone: [facility] Work Phone: 07-08-1989 haemophilus influenz ae type b vaccine, conjugate unspecified formulation Marija David Work Phone: [facility] Work Phone: 07-08-1989 haemophilus influenz ae type b vaccine, HbOC conjugate [facility] Work Phone: [facility] 06-10-1989 diphtheria, tetanus toxoids and pertussis vaccine Marija David Work Phone: [facility] Work Phone: 06-10-1989 measles, mumps and rubella virus vaccine Marija David Work Phone: [facility] Work Phone: 06-10-1989 trivalent poliovirus vaccine, live, oral Marija David Work Phone: [facility] Work Phone: 05-15-1987 diphtheria, tetanus toxoids and pertussis vaccine Marija David Work Phone: [facility] Work Phone: 05-15-1987 trivalent poliovirus vaccine, live, oral Marija David Work Phone: [facility] Work Phone: 03-27-1987 diphtheria, tetanus toxoids and pertussis vaccine Marija David Work Phone: [facility] Work Phone: 03-27-1987 trivalent poliovirus vaccine, live, oral Marija David Work Phone: [facility] Work Phone: Payers Date Payer Category Payer Unknown 2019 Unknown [id number] 1986 Unknown [id number] [id number] 1986 Unknown [id number] 2.16.8 [id number] 1986 Unknown [id number] 2.16.8 [id number] 1986 Unknown [id number] 2.16.8 [id number] 1986 Unknown [id number] 2.16.8 [id number] 1986 Unknown [id number] 2.16.8 [id number] 1986 Unknown [id number] 2.16. [id number] 1986 Unknown [id number] 2.16. [id number] 1986 Unknown [id number] [id number]. [id number] Unknown [id number] Social History Date Type Detail Facility Start: 07-25-2020 End: 08-27-2020 Non-smoker Non-smoker [facility] Work Phone: Start: 03-21-2011 End: 04-20-2024 Tobacco smoking status NHIS Ex-smoker [facility] Start: 02-27-2007 End: 02-28-2008 History of tobacco use Current smoker [facility] Start: 02-27-2007 End: 02-28-2008 History of tobacco use Cigarette Smoker [facility] Start: 03-21-2011 End: 04-20-2024 Tobacco use and exposure Smokeless tobacco non-user [facility] Start: 08-05-2021 End: 04-26-2024 Alcohol intake Current non-drinker of alcohol (finding) [facility] Start: 07-25-2020 End: 08-27-2020 Social connection and isolation panel [facility] How often do you att end latter day or voodoo services? Patient declined [facility] Do you belong to any clubs or organizations such as latter day groups, unions, fraternal or athletic groups, or school groups? Yes [facility] Are you now , , , , never or living with a partner? [facility] How often to you hav e a drink containing alcohol? Monthly or less [facility] How many standard dr inks containing alcohol do you have on a typical day? 3 or 4 [facility] How often do you hav e 6 or more drinks on 1 occasion? Less than monthly [facility] Do you feel stress - tense, restless, nervous, or anxious, or unable to sleep at night because your mind is troubled all the time - these days [OSQ] Not at all [facility] (I/We) worried [facility] (my/our) food would run out before (I/we) got money to buy more. Never true [facility] In the past 12 month s, was there a time when you were not able to pay the mortgage or rent on time? No [facility] Start: 07-23-2020 Education 18 [facility] Start: 04-14-2008 Alcohol Comment occasional,NOT WHILE [facility] Start: 1985 Sex Assigned At Female C [facility] Start: 07-23-2020 Gender identity Identifies as female gender (finding) [facility] Clinical Notes 09-21-2021 to 07-20-2024 Telephone Encounter - Soham Donaldson LPN - 07/20/2024 8:42 AM EDTTelephone Encounter - Soham Donaldson LPN - 07/20/2024 8:42 AM Uma Jensen RT(R) - 04/21/2024 3:00 PM EDT Note Date & Type Note Facility 07-20-2024 Telephone encount er Note Patient requested that Consult for Gastro be sent to [place]. Faxed as requested. [facility] 07-20-2024 Miscellaneous Notes Formattin g of this note might be different from the original. Patient requested that Consult for Gastro be sent to [place]. Faxed as requested. documented in this encounter [facility] 04-21-2024 History of Presen t illness Narrative RADIOLOGY SERVICE PROGRESS NOTE SERVICE DATE: 04/21/2024 SERVICE TIME: 3:00 PM PATIENT IDENTITY VERIFICATION COMPLETED USING TWO (2) STANDARD IDENTIFIERS: Name and Date of confirmed by patient verbally FALL SCREENING: Has the patient had 2 falls in the last year or 1 fall with injury or currently using an Ambulatory Assistive Device (Walker, Cane, Wheelchair, Crutches, etc.)? No PATIENT GENDER DATA: .female : No status: No ALLERGIES: Reviewed and unchanged MEDICATIONS REVIEWED: No PATIENT RELEVANT IMPLANT DATA REVIEWED: Not Applicable PATIENT PRESENTS WITH AN IMPLANTABLE OR ATTACHED OFFICE AUTOMATION TECHNICIAN: No CREATININE: Creatinine Date Value Ref Range Status 04/20/2024 0.73 0.58 - 0.96 mg/dL Final 01/05/2013 0.78 0.70 - 1.40 mg/dL Final Estimated Glomerular Filtration Rate Date Value Ref Range Status 04/20/2024 109 >=60 mL/min/1.73m Final Comment: Estimated Glomerular Filtration Rate (eGFR) is calculated using the 2020 CKD-EPI creatinine equation. This equation utilizes serum creatinine, sex, and age as parameters. The creatinine assay has traceable calibration to isotope dilution-mass spectrometry. Refer to KDIGO guidelines for clinical interpretation. In patients with unstable renal function, e.g. those with acute kidney injury, the eGFR may not accurately reflect actual GFR. eGFR- Date Value Ref Range Status 01/05/2013 >60 Final P.O.C.T. RESULTS: N/A April 21, [address] PERFORMED: No IV SITE: Ambulatory: A peripheral IV was started in the Right antecubital site with a Angio cath: 24 gauge. POST EXAM PIV STATUS: Discontinued PROCEDURE TYPE: NM INJECT: Hepatobiliary with Gallbladder EF. 5.6 mCi Tc99m CHOLETEC. CCK 1.32 micrograms intravenous at 16:50. ([facility] imaging approved per Dr. Yonatan Thomas) ADMINISTRATION TIME: 15:10 PATIENT DISCHARGED TO: Ambulatory patient, left [place] department area. A Diagnostic radioactive procedure has taken place, with no further precautions necessary other than routine body substance precautions. More information regarding radiation safety can be found using this link: [email or web address] ic%20Nuclear%[email or web address] [email or web address] SIGNATURE: BOOM Ovalle) PATIENT NAME: Smita Chu DATE: April 21, 2024 TIME: 3:29 PM PAGER/CONTACT #: documented in this encounter [facility] 04-21-2024 Note HNO ID: [id number] Author: UMA HUNTER RT (R) Service: Nuclear Medicine Author Type: Technologist Type: Progress Notes Filed: 04/21/2024 17:09 Note Text: RADIOLOGY SERVICE PROGRESS NOTE SERVICE DATE: 04/21/2024 SERVICE TIME: 3:00 PM PATIENT IDENTITY VERIFICATION COMPLETED USING TWO (2) STANDARD IDENTIFIERS: Name and Date of confirmed by patient verbally FALL SCREENING: Has the patient had 2 falls in the last year or 1 fall with injury or currently using an Ambulatory Assistive Device (Walker, Cane, Wheelchair, Crutches, etc.)? No PATIENT GENDER DATA: .female : No status: No ALLERGIES: Reviewed and unchanged MEDICATIONS REVIEWED: No PATIENT RELEVANT IMPLANT DATA REVIEWED: Not Applicable PATIENT PRESENTS WITH AN IMPLANTABLE OR ATTACHED OFFICE AUTOMATION TECHNICIAN: No CREATININE: Creatinine Date Value Ref Range Status 04/20/2024 0.73 0.58 - 0.96 mg/dL Final 01/05/2013 0.78 0.70 - 1.40 mg/dL Final Estimated Glomerular Filtration Rate Date Value Ref Range Status 04/20/2024 109 >=60 mL/min/1.73m? Final Comment: Estimated Glomerular Filtration Rate (eGFR) is calculated using the 2021 CKD-EPI creatinine equation. This equation utilizes serum creatinine, sex, and age as parameters. The creatinine assay has traceable calibration to isotope dilution-mass spectrometry. Refer to KDIGO guidelines for clinical interpretation. In patients with unstable renal function, e.g. those with acute kidney injury, the eGFR may not accurately reflect actual GFR. eGFR- Date Value Ref Range Status 01/05/2013 >60 Final P.O.C.T. RESULTS: N/A April 21, [address] PERFORMED: No IV SITE: Ambulatory: A peripheral IV was started in the Right antecubital site with a Angio cath: 24 gauge. POST EXAM PIV STATUS: Discontinued PROCEDURE TYPE: NM INJECT: Hepatobiliary with Gallbladder EF. 5.6 mCi Tc99m CHOLETEC. CCK 1.32 micrograms intravenous at 16:50. ([facility] imaging approved per Dr. Yonatan Thomas) ADMINISTRATION TIME: 15:10 PATIENT DISCHARGED TO: Ambulatory patient, left [place] department area. A Diagnostic radioactive procedure has taken place, with no further precautions necessary other than routine body substance precautions. More information regarding radiation safety can be found using this link: [email or web address] 20Diagnostic%20Nuclear%20Medic [email or web address].pdf SIGNATURE: RT Yamile(R) PATIENT NAME: Smita Chu DATE: April 21, 2024 TIME: 3:29 PM PAGER/CONTACT #: [facility] 04-21-2024 History of Presen t illness Narrative Radiology Service Progress Note PATIENT NAME: Smita Chu DATE OF SERVICE: April 21, 2024 TIME: 2:41 PM PATIENT IDENTITY VERIFICATION COMPLETED USING TWO (2) IDENTIFIERS: Name and Date of confirmed by patient verbally. FALL SCREENING: Has the patient had 2 falls in the last year or 1 fall with injury or currently using an Ambulatory Assistive Device (Walker, Cane, Wheelchair, Crutches, etc.)? No PATIENT GENDER DATA: Female. status: : No status: NO. PATIENT RELEVANT IMPLANT DATA REVIEWED: Not Applicable PATIENT PRESENTS WITH AN IMPLANTABLE OR ATTACHED OFFICE AUTOMATION TECHNICIAN: No RADIOLOGY DEPARTMENT: Ultrasound PERIPHERAL IV DATA: Not applicable SIGNED BY: Marilee Lee RDMS April 21, 2024 2:41 PM documented in this encounter [facility] 04-21-2024 Note HNO ID: [id number] Author: MARILEE LEE RDMS Service: ? Author Type: Rac Specialist Type: Progress Notes Filed: 04/21/2024 14:41 Note Text: Radiology Service Progress Note PATIENT NAME: Smita Chu DATE OF SERVICE: April 21, 2024 TIME: 2:41 PM PATIENT IDENTITY VERIFICATION COMPLETED USING TWO (2) IDENTIFIERS: Name and Date of confirmed by patient verbally. FALL SCREENING: Has the patient had 2 falls in the last year or 1 fall with injury or currently using an Ambulatory Assistive Device (Walker, Cane, Wheelchair, Crutches, etc.)? No PATIENT GENDER DATA: Female. status: : No status: NO. PATIENT RELEVANT IMPLANT DATA REVIEWED: Not Applicable PATIENT PRESENTS WITH AN IMPLANTABLE OR ATTACHED OFFICE AUTOMATION TECHNICIAN: No RADIOLOGY DEPARTMENT: Ultrasound PERIPHERAL IV DATA: Not applicable SIGNED BY: Marilee Lee RDMS April 21, 2024 2:41 PM [facility] 04-21-2024 History of Presen t illness Narrative Radiology Service Progress Note DATE OF SERVICE: April 21, 2024 TIME: 2:54 PM PATIENT IDENTITY VERIFICATION COMPLETED USING TWO (2) STANDARD IDENTIFIERS: Name and Date of confirmed by patient verbally. FALL SCREENING: Has the patient had 2 falls in the last year or 1 fall with injury or currently using an Ambulatory Assistive Device (Walker, Cane, Wheelchair, Crutches, etc.)? No PATIENT GENDER DATA: Female. status: : No status: NO. PATIENT RELEVANT IMPLANT DATA REVIEWED: Yes PATIENT PRESENTS WITH AN IMPLANTABLE OR ATTACHED OFFICE AUTOMATION TECHNICIAN: No ALLERGIES: Reviewed and unchanged CONTRAST ALLERGY: NO. EXAM: CT -CONTRAST INDUCED NEPHROPATHY RISK FACTORS: Not applicable CREATININE: Creatinine Date Value Ref Range Status 04/20/2024 0.73 0.58 - 0.96 mg/dL Final 01/05/2013 0.78 0.70 - 1.40 mg/dL Final Estimated Glomerular Filtration Rate Date Value Ref Range Status 04/20/2024 109 >=60 mL/min/1.73m Final Comment: Estimated Glomerular Filtration Rate (eGFR) is calculated using the 2020 CKD-EPI creatinine equation. This equation utilizes serum creatinine, sex, and age as parameters. The creatinine assay has traceable calibration to isotope dilution-mass spectrometry. Refer to KDIGO guidelines for clinical interpretation. In patients with unstable renal function, e.g. those with acute kidney injury, the eGFR may not accurately reflect actual GFR. eGFR- Date Value Ref Range Status 01/05/2013 >60 Final P.O.C.T. RESULTS: POC done: Yes, See Lab Tab April 21, 2024 TREATMENT: N/A PERIPHERAL IV DATA: Ambulatory: A peripheral IV was started in the Right antecubital site with a Angio cath: 22 gauge. RADIOLOGY DEPARTMENT: CT; Exam(s) Completed: Abdomen/Pelvis SIGNATURE: BOOM García) PATIENT NAME: Smita Chu DATE: April 21, 2024 TIME: 2:54 PM documented in this encounter [facility] 04-21-2024 Note HNO ID: [id number] Author: SHANDA RIOS RT(R) Service: ? Author Type: Rac Specialist Type: Progress Notes Filed: 04/21/2024 14:54 Note Text: Radiology Service Progress Note DATE OF SERVICE: April 21, 2024 TIME: 2:54 PM PATIENT IDENTITY VERIFICATION COMPLETED USING TWO (2) STANDARD IDENTIFIERS: Name and Date of confirmed by patient verbally. FALL SCREENING: Has the patient had 2 falls in the last year or 1 fall with injury or currently using an Ambulatory Assistive Device (Walker, Cane, Wheelchair, Crutches, etc.)? No PATIENT GENDER DATA: Female. status: : No status: NO. PATIENT RELEVANT IMPLANT DATA REVIEWED: Yes PATIENT PRESENTS WITH AN IMPLANTABLE OR ATTACHED OFFICE AUTOMATION TECHNICIAN: No ALLERGIES: Reviewed and unchanged CONTRAST ALLERGY: NO. EXAM: CT -CONTRAST INDUCED NEPHROPATHY RISK FACTORS: Not applicable CREATININE: Creatinine Date Value Ref Range Status 04/20/2024 0.73 0.58 - 0.96 mg/dL Final 01/05/2013 0.78 0.70 - 1.40 mg/dL Final Estimated Glomerular Filtration Rate Date Value Ref Range Status 04/20/2024 109 >=60 mL/min/1.73m? Final Comment: Estimated Glomerular Filtration Rate (eGFR) is calculated using the 2020 CKD-EPI creatinine equation. This equation utilizes serum creatinine, sex, and age as parameters. The creatinine assay has traceable calibration to isotope dilution-mass spectrometry. Refer to KDIGO guidelines for clinical interpretation. In patients with unstable renal function, e.g. those with acute kidney injury, the eGFR may not accurately reflect actual GFR. eGFR- Date Value Ref Range Status 01/05/2013 >60 Final P.O.C.T. RESULTS: POC done: Yes, See Lab Tab April 21, 2024 TREATMENT: N/A PERIPHERAL IV DATA: Ambulatory: A peripheral IV was started in the Right antecubital site with a Angio cath: 22 gauge. RADIOLOGY DEPARTMENT: CT; Exam(s) Completed: Abdomen/Pelvis SIGNATURE: RT Ricky(R) PATIENT NAME: Smita Chu DATE: April 21, 2024 TIME: 2:54 PM [facility] 04-20-2024 Note HNO ID: [id number] Author: GRISELDA MCKINNEY APRN.MAKE READY WORKER Service: ? Author Type: Nurse Practitioner Type: Progress Notes Filed: 04/20/2024 12:12 Note Text: Chief Complaint Patient presents with: Abdominal Pain: Umbilical area, RUQ with deep breaths and movement X 1 week HPI Smita Chu is a 38 year old female who presents here today for Above Complaints.. Was admitted to When walking and moving has significant pain around her belly button. Touching this area is very painful. Denies n/v, has been on a liquid diet for the past week. Past medical history, appointments, medications, allergies reviewed. 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 1986: Necrotizing enterocolitis in Previous Surgical History PAST SURGICAL HISTORY 08/23/2020: DILATION AND CURETTAGE DXAND/THER NONOBSTETRIC Comment: hysteroscopy DANDC at [facility] No date: HYSTEROSCOPY,W/ENDOMETRIAL ABLATION 1986: PAST SURGICAL HISTORY OF Comment: BOWEL SURG , she had NEC Family History FAMILY HISTORY Problem Relation Age of Onset Heart Mother Thyroid Mother Diabetes Maternal Grandmother Heart Maternal Grandmother Hypertension Maternal Grandmother Seizures Sister other (Mentally Handicaped) Sister Breast Cancer Maternal Aunt Patient Allergies ALLERGIES Allergen Reactions Augmentin [Amoxicil* Rash Cephalexin Rash Current Medications Current Outpatient Medications on File Prior to Visit Medication Sig cyanocobalamin, vitamin B-12, (VITAMIN B-12 ORAL) Take by mouth. Multivitamin capsule Take 1 capsule by mouth once daily. ferrous sulfate 325 mg (65 mg iron) tablet Take 325 mg by mouth daily with breakfast. medroxyPROGESTERone (PROVERA) 10 mg tablet Take 1 tablet by mouth once daily. for 20 days a month No current facility-administered medications on file prior to visit. Social History Social History Tobacco Use Smoking status: Former Years: 1 Types: Cigarettes Quit date: 02/28/2008 Years since quittin.1 Smokeless tobacco: Never Vaping Use Vaping Use: Never used Substance Use Topics Alcohol use: No Comment: occasional,NOT WHILE Drug use: No Review of Symptoms REVIEW OF SYSTEMS See HPI, otherwise negative EXAM: BP 102/84 (BP Site: Left Arm, BP Position: Sitting, BP Cuff Size: Regular Adult) Pulse 64 Temp 37.2 ?C (99 ?F) Resp 16 Wt 66.1 kg (145 lb 12.8 oz) LMP 04/02/2021 (Exact Date) SpO2 98% BMI 24.45 kg/m? General Appearance: ill-appearing, alert, in no acute distress, well-hydrated, well nourished.. Lungs: Lungs clear to auscultation. No wheezing, rhonchi, rales.. Heart: RRR without murmur, gallop, or rubs. No ectopy. Abdomen: very difficult to assess due to severe tenderness and rigidity of entire abdomen. Psychiatric: pleasant, cooperative, flat affect-d/t pain. Health Maintenance List Depression Screening Never done Anxiety Screening Never done Hepatitis C Screening Never done DTaP,Tdap,Td Vaccine(6 - Td or Tdap) due on 10/06/2017 Covid-19 Vaccine( season) due on 05/22/2023 Influenza Vaccine(1) due on 05/22/2024 Cervical Cancer Screening due on 08/03/2025 HIV Screening Completed HPV Vaccine Aged Out Data reviewed Previous records, office notes ASSESSMENT/PLAN: 1. Calculus of gallbladder without cholecystitis without obstruction - ICD9: 574.20, ICD10: K80.20 (primary diagnosis) - COMPLETE BLOOD COUNT AND DIFFERENTIAL - COMPREHENSIVE METABOLIC PANEL - CT ABD/PEL W IVCON - IV CONTRAST (RADIOLOGY PROCEDURE) - ENTERIC CONTRAST (RADIOLOGY PROCEDURE) - US ABD RIGHT UPPER QUADRANT - NM HEPATOBILIARY W EF AND/OR RX - CONSULT TO GENERAL SURGERY 2. Periumbilic abdominal rigidity - ICD9: 789.45, ICD10: R19.35 - COMPLETE BLOOD COUNT AND DIFFERENTIAL - COMPREHENSIVE METABOLIC PANEL - CT ABD/PEL W IVCON - IV CONTRAST (RADIOLOGY PROCEDURE) - ENTERIC CONTRAST (RADIOLOGY PROCEDURE) - US ABD RIGHT UPPER QUADRANT - NM HEPATOBILIARY W EF AND/OR RX - CONSULT TO GENERAL SURGERY 3. RUQ pain - ICD9: 789.01, ICD10: R10.11 - COMPLETE BLOOD COUNT AND DIFFERENTIAL - COMPREHENSIVE METABOLIC PANEL - CT ABD/PEL W IVCON - IV CONTRAST (RADIOLOGY PROCEDURE) - ENTERIC CONTRAST (RADIOLOGY PROCEDURE) - US ABD RIGHT UPPER QUADRANT - NM HEPATOBILIARY W EF AND/OR RX - CONSULT TO GENERAL SURGERY 4. Abdominal right upper quadrant rigidity - ICD9: 789.41, ICD10: R19.31 - COMPLETE BLOOD COUNT AND DIFFERENTIAL - COMPREHENSIVE METABOLIC PANEL - CT ABD/PEL W IVCON - IV CONTRAST (RADIOLOGY PROCEDURE) - ENTERIC CONTRAST (RADIOLOGY PROCEDURE) - US ABD RIGHT UPPER QUADRANT - NM HEPATOBILIARY W EF AND/OR RX - CONSULT TO GENERAL SURGERY 5. Leukocytosis, unspecified type - ICD9: 288.60, ICD10: D72.829 - COMPLETE BLOOD COUNT AND DIFFERENTIAL - COMPREHENSIVE METABOLIC PANEL - CT ABD/PEL W I (more content not included)... [facility] 04-20-2024 History of Presen t illness Narrative Chief Complaint Patient presents with: Abdominal Pain: Umbilical area, RUQ with deep breaths and movement X 1 week HPI Smita Chu is a 38 year old female who presents here today for Above Complaints.. Was admitted to When walking and moving has significant pain around her belly button. Touching this area is very painful. Denies n/v, has been on a liquid diet for the past week. Past medical history, appointments, medications, allergies reviewed. 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 1986: Necrotizing enterocolitis in Previous Surgical History PAST SURGICAL HISTORY 08/23/2020: DILATION & CURETTAGE DX&/THER NONOBSTETRIC Comment: hysteroscopy D&C at [facility] No date: HYSTEROSCOPY,W/ENDOMETRIAL ABLATION 1987: PAST SURGICAL HISTORY OF Comment: BOWEL SURG INFANT, she had NEC Family History FAMILY HISTORY Problem Relation Age of Onset Heart Mother Thyroid Mother Diabetes Maternal Grandmother Heart Maternal Grandmother Hypertension Maternal Grandmother Seizures Sister other (Mentally Handicaped) Sister Breast Cancer Maternal Aunt Patient Allergies ALLERGIES Allergen Reactions Augmentin [Amoxicil* Rash Cephalexin Rash Current Medications Current Outpatient Medications on File Prior to Visit Medication Sig cyanocobalamin, vitamin B-12, (VITAMIN B-12 ORAL) Take by mouth. Multivitamin capsule Take 1 capsule by mouth once daily. ferrous sulfate 325 mg (65 mg iron) tablet Take 325 mg by mouth daily with breakfast. medroxyPROGESTERone (PROVERA) 10 mg tablet Take 1 tablet by mouth once daily. for 20 days a month No current facility-administered medications on file prior to visit. Social History Social History Tobacco Use Smoking status: Former Years: 1 Types: Cigarettes Quit date: 02/28/2008 Years since quittin.1 Smokeless tobacco: Never Vaping Use Vaping Use: Never used Substance Use Topics Alcohol use: No Comment: occasional,NOT WHILE Drug use: No Review of Symptoms REVIEW OF SYSTEMS See HPI, otherwise negative EXAM: BP 102/84 (BP Site: Left Arm, BP Position: Sitting, BP Cuff Size: Regular Adult) Pulse 64 Temp 37.2 C (99 F) Resp 16 Wt 66.1 kg (145 lb 12.8 oz) LMP 04/02/2021 (Exact Date) SpO2 98% BMI 24.45 kg/m General Appearance: ill-appearing, alert, in no acute distress, well-hydrated, well nourished.. Lungs: Lungs clear to auscultation. No wheezing, rhonchi, rales.. Heart: RRR without murmur, gallop, or rubs. No ectopy. Abdomen: very difficult to assess due to severe tenderness and rigidity of entire abdomen. Psychiatric: pleasant, cooperative, flat affect-d/t pain. Health Maintenance List Depression Screening Never done Anxiety Screening Never done Hepatitis C Screening Never done DTaP,Tdap,Td Vaccine(6 - Td or Tdap) due on 10/06/2017 Covid-19 Vaccine(3 - 2022- season) due on 05/22/2023 Influenza Vaccine(1) due on 05/22/2024 Cervical Cancer Screening due on 08/03/2025 HIV Screening Completed HPV Vaccine Aged Out Data reviewed Previous records, office notes ASSESSMENT/PLAN: 1. Calculus of gallbladder without cholecystitis without obstruction - ICD9: 574.20, ICD10: K80.20 (primary diagnosis) - COMPLETE BLOOD COUNT AND DIFFERENTIAL - COMPREHENSIVE METABOLIC PANEL - CT ABD/PEL W IVCON - IV CONTRAST (RADIOLOGY PROCEDURE) - ENTERIC CONTRAST (RADIOLOGY PROCEDURE) - US ABD RIGHT UPPER QUADRANT - NM HEPATOBILIARY W EF AND/OR RX - CONSULT TO GENERAL SURGERY 2. Periumbilic abdominal rigidity - ICD9: 789.45, ICD10: R19.35 - COMPLETE BLOOD COUNT AND DIFFERENTIAL - COMPREHENSIVE METABOLIC PANEL - CT ABD/PEL W IVCON - IV CONTRAST (RADIOLOGY PROCEDURE) - ENTERIC CONTRAST (RADIOLOGY PROCEDURE) - US ABD RIGHT UPPER QUADRANT - NM HEPATOBILIARY W EF AND/OR RX - CONSULT TO GENERAL SURGERY 3. RUQ pain - ICD9: 789.01, ICD10: R10.11 - COMPLETE BLOOD COUNT AND DIFFERENTIAL - COMPREHENSIVE METABOLIC PANEL - CT ABD/PEL W IVCON - IV CONTRAST (RADIOLOGY PROCEDURE) - ENTERIC CONTRAST (RADIOLOGY PROCEDURE) - US ABD RIGHT UPPER QUADRANT - NM HEPATOBILIARY W EF AND/OR RX - CONSULT TO GENERAL SURGERY 4. Abdominal right upper quadrant rigidity - ICD9: 789.41, ICD10: R19.31 - COMPLETE BLOOD COUNT AND DIFFERENTIAL - COMPREHENSIVE METABOLIC PANEL - CT ABD/PEL W IVCON - IV CONTRAST (RADIOLOGY PROCEDURE) - ENTERIC CONTRAST (RADIOLOGY PROCEDURE) - US ABD RIGHT UPPER QUADRANT - NM HEPATOBILIARY W EF AND/OR RX - CONSULT TO GENERAL SURGERY 5. Leukocytosis, unspecified type - ICD9: 288.60, ICD10: D72.829 - COMPLETE BLOOD COUNT AND DIFFERENTIAL - COMPREHENSIVE METABOLIC PANEL - CT ABD/PEL W IVCON - IV CONTRAST (RADIOLOGY PROCEDURE) - ENTERIC CONTRAST (RADIOLOGY PROCEDURE) - US ABD RIGHT UPPER QUADRANT - NM HEPATOBILIARY W EF AND/OR RX - CONSULT TO GENERAL SURGERY Griselda MckinneyMARNI.MAKE READY WORKER documented in this encounter [facility] 04-19-2024 Telephone encount er Note Appt. scheduled Pt. informed. [facility] Work Phone: 04-19-2024 Miscellaneous Notes Formattin g of this note might be different from the original. Appt. scheduled Pt. informed. Okay for patient to establish care with me and our office. Please schedule her a 40-60 minute office visit for abdominal pain with Linnette or Sugar. Patient is aware of this. This appointment needs to be in the next 1-2 days. 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 Recently she has had abdominal pain generalized that is persistant. She has been seen at [facility] and had CT abd/pelvis without any specific finidings. She was hospitalized with assumption for small bowel partial obstruction, although she continued to have some bowel movements through the hospital stay. Also found to have gallstones She is in need of further testing at this time. Andrea Whitfield DO documented in this encounter [facility] 04-19-2024 Telephone encount er Note Okay for patient to establish care with me and our office. Please schedule her a 40-60 minute office visit for abdominal pain with Linnette or Sugar. Patient is aware of this. This appointment needs to be in the next 1-2 days. Patient with history of NEC as an and partial small bowel obstruction with ostomy as a baby, which was reversed and reanastomosed. Recently she has had abdominal pain generalized that is persistant. She has been seen at [facility] and had CT abd/pelvis without any specific finidings. She was hospitalized with assumption for small bowel partial obstruction, although she continued to have some bowel movements through the hospital stay. Also found to have gallstones She is in need of further testing at this time. Andrea Whitfield DO [facility] Work Phone: 09-21-2021 History of Pilar leigh illness Narrative 36-year-old female with no significant personal history of cardiac complaints here for the following complaints:Palpitations-Lisy leigh was diagnosed with COVID September 2021; and has been noticing nighttime palpitations.-Does have significant family history of arrhythmia (RI in her aunt 150, sister had a pacemaker at age 35)-Echocardiogram performed April 2022 shows preserved biventricular function.Patient on this visit notes that since January 2022 she has been having sporadic symptoms (about once a month) of palpitations that last 1-2 minutes; she can hear the pulse in her ear; it is associated with dizziness/palpitations/ a fuzzy feeling and some tinnitus. She does note some chest discomfort with these episodes and shortness of breath as well.Outside of these episodes she denies any exertional dyspnea. Denies any orthopnea/PND/lower extremity edema. Denies any dizziness or lightheadedness. Notably her sister (at age 35) passed out when driving; and after an EP evaluation received a defibrillator . [facility] [address] Work Phone: Evaluation note Diagnosis Calculus of gallbladder without cholecystitis without obstruction- Primary Calculus of gallbladder without mention of cholecystitis or obstruction Periumbilic abdominal rigidity RUQ pain Abdominal pain, right upper quadrant Abdominal right upper quadrant rigidity Abdominal rigidity, right upper quadrant Leukocytosis, unspecified type [facility] Diagnosis Calculus of gallbladder without cholecystitis without obstruction Calculus of gallbladder without mention of cholecystitis or obstruction Periumbilic abdominal rigidity RUQ pain Abdominal pain, right upper quadrant Abdominal right upper quadrant rigidity Abdominal rigidity, right upper quadrant Leukocytosis, unspecified type [facility] Diagnosis Calculus of gallbladder without cholecystitis without obstruction Calculus of gallbladder without mention of cholecystitis or obstruction Periumbilic abdominal rigidity RUQ pain Abdominal pain, right upper quadrant Abdominal right upper quadrant rigidity Abdominal rigidity, right upper quadrant Leukocytosis, unspecified type [facility] Patient presents today for.... * 1 to est as new patient * 2 cardio concerns * heart palp, light headed, dizzy, fatigue * Most of these symptoms started after she was diagnosed with COVID * Most commonly she notes waking up in the middle of the night with symptoms and started to exp this the week of COVID which she has Sep 2021 * 3 fam hx * mom side cardio concerns and breast cancer * Breast cancer in her grandmother and great aunt * RI with her aunt 3 x under age 50 * sister cardiac pacemaker age 35 * Father side colon cancer in her dad and grandfather - both were fairly progressed when diagnosed maybe in their 60s. 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 She states she had necrotizing enterocolitisand had part of her colon removed and had a colostomy but this was later reversed. she believes 3 Ft of her small intestine was removed. overall she feels ok but questions absorption issues and states her bowels are always slightly more on the loose side * 4 Preventative * PAP * DEXA suggest age 50-55 * Mammo- suggest age 35-40 * Colonoscopy - suggest age 45-50 * sooner pending symptoms and concerns -[facility] Work Phone: History of Present illness Narrative* Patient presents today for.... * 1 to est as new patient * 2 cardio concerns * heart palp, light headed, dizzy, fatigue * Most of these symptoms started after she was diagnosed with COVID * Most commonly she notes waking up in the middle of the night with symptoms and started to exp this the week of COVID which she has Sep 2021 * 3 fam hx * mom side cardio concerns and breast cancer * Breast cancer in her grandmother and great aunt * RI with her aunt 3 x under age 50 * sister cardiac pacemaker age 35 * Father side colon cancer in her dad and grandfather - both were fairly progressed when diagnosed maybe in their 60s. 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 She states she had necrotizing enterocolitisand had part of her colon removed and had a colostomy but this was later reversed. she believes 3 Ft of her small intestine was removed. overall she feels ok but questions absorption issues and states her bowels are always slightly more on the loose side * 4 Preventative * PAP * DEXA suggest age 50-55 * Mammo- suggest age 35-40 * Colonoscopy - suggest age 45-50 * sooner pending symptoms and concerns [facility] Work Phone: History of Present illness Narrative* Patient presents today for.... * 1 to est as new patient * 2 cardio concerns * heart palp, light headed, dizzy, fatigue * Most of these symptoms started after she was diagnosed with COVID * Most commonly she notes waking up in the middle of the night with symptoms and started to exp this the week of COVID which she has Sep 2021 * 3 fam hx * mom side cardio concerns and breast cancer * Breast cancer in her grandmother and great aunt * RI with her aunt 3 x under age 50 * sister cardiac pacemaker age 35 * Father side colon cancer in her dad and grandfather - both were fairly progressed when diagnosed maybe in their 60s. 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 She states she had necrotizing enterocolitisand had part of her colon removed and had a colostomy but this was later reversed. she believes 3 Ft of her small intestine was removed. overall she feels ok but questions absorption issues and states her bowels are always slightly more on the loose side * 4 Preventative * PAP * DEXA suggest age 50-55 * Mammo- suggest age 35-40 * Colonoscopy - suggest age 45-50 * sooner pending symptoms and concerns [facility] Work Phone: Reason for referral (narrative)* Diagnostic Procedure Only (Urgent) - Closed Specialty Diagnoses / Procedures Referred By Trevin t Referred To Contact MOLECULAR & FUNCTIONAL IMAGING Diagnoses Calculus of gallbladder without cholecystitis without obstruction Periumbilic abdominal rigidity RUQ pain Abdominal right upper quadrant rigidity Leukocytosis, unspecified type Procedures NM HEPATOBILIARY W EF AND/OR RX HEPATOBIL SYST IMAG INC GB W/PHARMA INTERVENJ Griselda Mckinney APRN.[employer] READ[employer] WORKER [address] [place] [address] Molecular & Functional Imaging [address] [place] [address] Referral ID Status Reason Start Date Expiration Date V isits Requested Visits Authorized [id number] Closed Auto-Generate d Referral 04/20/2024 05/20/2025 1 1 [facility] Diagnostic Procedure Only (Urgent) - Closed Specialty Diagnoses / Procedures Referred By Trevin leigh Referred To Contact US IMAGING Diagnoses Calculus of gallbladder without cholecystitis without obstruction Periumbilic abdominal rigidity RUQ pain Abdominal right upper quadrant rigidity Leukocytosis, unspecified type Procedures US ABD RIGHT UPPER QUADRANT US ABDOMINAL REAL TIME W/IMAGE LIMITED Griselda Mckinney APRN.[employer] WORKER [address] [place] [address] [facility] [place] [address] Referral ID Status Reason Start Date Expiration Date V isits Requested Visits Authorized [id number] Closed Auto-Generate d Referral 04/20/2024 05/20/2025 1 1 [facility] Chief Complaint EST NEW. C/O PALPITATIONS/ FLUTTERING ON/OFF, LIGHTHEADED/ DIZZINESSEST NEW. C/O PALPITATIONS/ FLUTTERING ON/OFF, LIGHTHEADED/ DIZZINESSEST NEW. C/O PALPITATIONS/ FLUTTERING ON/OFF, LIGHTHEADED/ DIZZINESSPalpitations Family History No Family History Records FoundUnknown Family Member Name Dates Details Cardiac defibrillator in venancio ce: Sister Comments:PLACED AT 35; Status:Active Family history of hypertensi on: Mother(V17.49, Z82.49) Status:Active Family history of malignant neoplasm of breast: Maternal Grandmother, Maternal Aunt(V16.3, Z80.3) Status:Active Family history of malignant neoplasm of colon: Father, Paternal Grandfather(V16.0, Z80.0) Status:Active Family history of myocardial infarction: Maternal Aunt(V17.3, Z82.49) Comments:X3; Status:Active Unknown Family Member Name Dates Details Cardiac defibrillator in venancio ce: Sister Comments:PLACED AT 35; Status:Active Family history of hypertensi on: Mother(V17.49, Z82.49) Status:Active Family history of malignant neoplasm of breast: Maternal Grandmother, Maternal Aunt(V16.3, Z80.3) Status:Active Family history of malignant neoplasm of colon: Father, Paternal Grandfather(V16.0, Z80.0) Status:Active Family history of myocardial infarction: Maternal Aunt(V17.3, Z82.49) Comments:X3; Status:Active Unknown Family Member Name Dates Details Cardiac defibrillator in venancio ce: Sister Comments:PLACED AT 35; Status:Active Family history of hypertensi on: Mother(V17.49, Z82.49) Status:Active Family history of malignant neoplasm of breast: Maternal Grandmother, Maternal Aunt(V16.3, Z80.3) Status:Active Family history of malignant neoplasm of colon: Father, Paternal Grandfather(V16.0, Z80.0) Status:Active Family history of myocardial infarction: Maternal Aunt(V17.3, Z82.49) Comments:X3; Status:Active Unknown Family Member Name Dates Details Cardiac defibrillator in venancio ce: Sister Comments:PLACED AT 35; Status:Active Family history of hypertensi on: Mother(V17.49, Z82.49) Status:Active Family history of malignant neoplasm of breast: Maternal Grandmother, Maternal Aunt(V16.3, Z80.3) Status:Active Family history of malignant neoplasm of colon: Father, Paternal Grandfather(V16.0, Z80.0) Status:Active Family history of myocardial infarction: Maternal Aunt(V17.3, Z82.49) Comments:X3; Status:Active Unknown Family Member Name Dates Details Cardiac defibrillator in venancio ce: Sister Comments:PLACED AT 35; Status:Active Family history of hypertensi on: Mother(V17.49, Z82.49) Status:Active Family history of malignant neoplasm of breast: Maternal Grandmother, Maternal Aunt(V16.3, Z80.3) Status:Active Family history of malignant neoplasm of colon: Father, Paternal Grandfather(V16.0, Z80.0) Status:Active Family history of myocardial infarction: Maternal Aunt(V17.3, Z82.49) Comments:X3; Status:Active Unknown Family Member Name Dates Details Cardiac defibrillator in venancio ce: Sister Comments:PLACED AT 35; Status:Active Family history of hypertensi on: Mother(V17.49, Z82.49) Status:Active Family history of malignant neoplasm of breast: Maternal Grandmother, Maternal Aunt(V16.3, Z80.3) Status:Active Family history of malignant neoplasm of colon: Father, Paternal Grandfather(V16.0, Z80.0) Status:Active Family history of myocardial infarction: Maternal Aunt(V17.3, Z82.49) Comments:X3; Status:Active Family history of cardiac di sorder: Other(V17.49, Z82.49) Status:Active Unknown Family Member Name Dates Details Cardiac defibrillator in venancio ce: Sister Comments:PLACED AT 35; Status:Active Family history of hypertensi on: Mother(V17.49, Z82.49) Status:Active Family history of malignant neoplasm of breast: Maternal Grandmother, Maternal Aunt(V16.3, Z80.3) Status:Active Family history of malignant neoplasm of colon: Father, Paternal Grandfather(V16.0, Z80.0) Status:Active Family history of myocardial infarction: Maternal Aunt(V17.3, Z82.49) Comments:X3; Status:Active Family history of cardiac di sorder: Other(V17.49, Z82.49) Status:Active Unknown Family Member Name Dates Details Cardiac defibrillator in venancio ce: Sister Comments:PLACED AT 35; Status:Active Family history of hypertensi on: Mother(V17.49, Z82.49) Status:Active Family history of malignant neoplasm of breast: Maternal Grandmother, Maternal Aunt(V16.3, Z80.3) Status:Active Family history of malignant neoplasm of colon: Father, Paternal Grandfather(V16.0, Z80.0) Status:Active Family history of myocardial infarction: Maternal Aunt(V17.3, Z82.49) Comments:X3; Status:Active Family history of cardiac di sorder: Other(V17.49, Z82.49) Status:Active Unknown Family Member Name Dates Details Cardiac defibrillator in venancio ce: Sister Comments:PLACED AT 35; Status:Active Family history of hypertensi on: Mother(V17.49, Z82.49) Status:Active Family history of malignant neoplasm of breast: Maternal Grandmother, Maternal Aunt(V16.3, Z80.3) Status:Active Family history of malignant neoplasm of colon: Father, Paternal Grandfather(V16.0, Z80.0) Status:Active Family history of myocardial infarction: Maternal Aunt(V17.3, Z82.49) Comments:X3; Status:Active Family history of cardiac di sorder: Other(V17.49, Z82.49) Status:Active Unknown Family Member Name Dates Details Cardiac defibrillator in venancio ce: Sister Comments:PLACED AT 35; Status:Active Family history of hypertensi on: Mother(V17.49, Z82.49) Status:Active Family history of malignant neoplasm of breast: Maternal Grandmother, Maternal Aunt(V16.3, Z80.3) Status:Active Family history of malignant neoplasm of colon: Father, Paternal Grandfather(V16.0, Z80.0) Status:Active Family history of myocardial infarction: Maternal Aunt(V17.3, Z82.49) Comments:X3; Status:Active Family history of cardiac di sorder: Other(V17.49, Z82.49) Status:Active Summary Purpose Advance Directives No Advanced Directives Records FoundNo Advanced Directives Records FoundNo Advanced Directives Records FoundNo Advanced Directives Records Found Reason for Referral Specialty Diagnoses / Procedures Referred By Trevin leigh Referred To Contact General Surgery Diagnoses Calculus of gallbladder without cholecystitis without obstruction Periumbilic abdominal rigidity RUQ pain Abdominal right upper quadrant rigidity Leukocytosis, unspecified type Procedures CONSULT TO GENERAL SURGERY OFFICE/OUTPATIENT [facility] 60 MINUTES Griselda Mckinney, MARNI.MAKE READY WORKER [address] [place] [address] Referral ID Status Reason Start Date Expiration Date Visits Requested Visits Authorized [id number] Authorized PCP Requested Referral 04/20/2024 04/20/2025 1 1 Specialty Diagnoses / Procedures Referred By Contac t Referred To Contact MOLECULAR & FUNCTIONAL IMAGING Diagnoses Calculus of gallbladder without cholecystitis without obstruction Periumbilic abdominal rigidity RUQ pain Abdominal right upper quadrant rigidity Leukocytosis, unspecified type Procedures NM HEPATOBILIARY W EF AND/OR RX HEPATOBIL SYST IMAG INC GB W/PHARMA INTERVENJ Griselda Mciknney, SOLE PAINTER.MAKE READY WORKER [address] [place] [address] Molecular & Functional Imaging [address] [place] [address] Referral ID Status Reason Start Date Expiration Date Visits Requested Visits Authorized [id number] New Request Auto-Generat ed Referral 04/20/2024 05/20/2025 1 1 Specialty Diagnoses / Procedures Referred By Contac t Referred To Contact US IMAGING Diagnoses Calculus of gallbladder without cholecystitis without obstruction Periumbilic abdominal rigidity RUQ pain Abdominal right upper quadrant rigidity Leukocytosis, unspecified type Procedures US ABD RIGHT UPPER QUADRANT US ABDOMINAL REAL TIME W/IMAGE LIMITED [facility], SOLE PAINTER.MAKE READY WORKER [address] [place] [address] [place] [address] Referral ID Status Reason Start Date Expiration Date Visits Requested Visits Authorized [id number] Authorized Auto-Generat ed Referral 04/20/2024 05/20/2025 1 1 Specialty Diagnoses / Procedures [facility] Diagnoses Calculus of gallbladder without cholecystitis without obstruction Periumbilic abdominal rigidity RUQ pain Abdominal right upper quadrant rigidity Leukocytosis, unspecified type Procedures CT ABD/PEL W IVCON CT ABD & PELVIS W/CONTRAST Griselda Mckinney, SOLE PAINTER.MAKE READY WORKER [address] [place] [address] [place] [address] Referral ID Status Reason Start Date Expiration Date Visits Requested Visits Authorized [id number] Authorized Auto-Generat ed Referral 04/20/2024 05/20/2025 1 1 Referral ID Status Reason Start Date Expiration Date V isits Requested Visits Authorized [id number] Closed Auto-Generate d Referral 04/20/2024 05/20/2025 1 1 Additional Source Comments INFORMATION SOURCE (unrecogn ized section and content) DATE CREATED AUTHOR 08/07/2022 [facility] DATE CREATED AUTHOR AUTHOR'S ORGANIZ ATION 01/30/2023 [facility] DATE CREATED AUTHOR AUTHOR'S ORGANIZ ATION 02/01/2023 [employer] DATE CREATED AUTHOR AUTHOR'S ORGANIZ ATION 07/21/2024 [facility] Source Comments (unrecognize d section and content) In the event this informatio n is protected by the Federal Confidentiality of Alcohol and Drug Abuse Patient Records regulations: The Federal rules restrict any use of the information to criminally investigate or prosecute any alcohol or drug abuse patient.[facility] the event this information is protected by the Federal Confidentiality of Alcohol and Drug Abuse Patient Records regulations: The Federal rules restrict any use of the information to criminally investigate or prosecute any alcohol or drug abuse patient.[facility] the event this information is protected by the Federal Confidentiality of Alcohol and Drug Abuse Patient Records regulations: The Federal rules restrict any use of the information to criminally investigate or prosecute any alcohol or drug abuse patient.[facility] the event this information is protected by the Federal Confidentiality of Alcohol and Drug Abuse Patient Records regulations: The Federal rules restrict any use of the information to criminally investigate or prosecute any alcohol or drug abuse patient.[facility] the event this information is protected by the Federal Confidentiality of Alcohol and Drug Abuse Patient Records regulations: The Federal rules restrict any use of the information to criminally investigate or prosecute any alcohol or drug abuse patient.[facility] the event this information is protected by the Federal Confidentiality of Alcohol and Drug Abuse Patient Records regulations: The Federal rules restrict any use of the information to criminally investigate or prosecute any alcohol or drug abuse patient.[facility] the event this information is protected by the Federal Confidentiality of Alcohol and Drug Abuse Patient Records regulations: The Federal rules restrict any use of the information to criminally investigate or prosecute any alcohol or drug abuse patient.[facility] Reason for Visit (unrecogniz ed section and content) Reason Comments Abdominal Pain Umbilical area, RUQ with deep breaths and movement X 1 week Reason Comments Radiology NM Specialty Diagnoses / Procedures Referred By Contac t Referred To Contact MOLECULAR & FUNCTIONAL IMAGING Diagnoses Calculus of gallbladder without cholecystitis without obstruction Periumbilic abdominal rigidity RUQ pain Abdominal right upper quadrant rigidity Leukocytosis, unspecified type Procedures NM HEPATOBILIARY W EF AND/OR RX HEPATOBIL SYST IMAG INC GB W/PHARMA INTERVENJ Griselda Mckinney, SOLE PAINTER.MAKE READY WORKER [address] [place] [address] Molecular & Functional Imaging [address] [place] [address] Referral ID Status Reason Start Date Expiration Date V isits Requested Visits Authorized [id number] Closed Auto-Generate d Referral 04/20/2024 05/20/2025 1 1 Reason Comments Radiology US Specialty Diagnoses / Procedures Referred By Contac t Referred To Contact US IMAGING Diagnoses Calculus of gallbladder without cholecystitis without obstruction Periumbilic abdominal rigidity RUQ pain Abdominal right upper quadrant rigidity Leukocytosis, unspecified type Procedures US ABD RIGHT UPPER QUADRANT US ABDOMINAL REAL TIME W/IMAGE LIMITED Griselda Mckinney, SOLE PAINTER.MAKE READY WORKER [address] [place] [address] [place] [address] Referral ID Status Reason Start Date Expiration Date V isits Requested Visits Authorized [id number] Closed Auto-Generate d Referral 04/20/2024 05/20/2025 [address] Specialty Diagnoses / Procedures Referred By Contac t Referred To Contact CT IMAGING Diagnoses Calculus of gallbladder without cholecystitis without obstruction Periumbilic abdominal rigidity RUQ pain Abdominal right upper quadrant rigidity Leukocytosis, unspecified type Procedures CT ABD/PEL W IVCON CT ABD & PELVIS W/CONTRAST Griselda Mckinney, SOLE PAINTER.MAKE READY WORKER [address] [place] [address] [place] [address] Referral ID Status Reason Start Date Expiration Date V isits Requested Visits Authorized [id number] Closed Auto-Generate d Referral 04/20/2024 05/20/2025 1 1 Reason Comments FYI-No Action Needed Care Teams (unrecognized sec tion and content) Automotive Finance Manager Relationship Specialty Start Date End Date Andrea Whitfield DO [address] [facility] [place] [address] PCP - General Family Medicine 04/20/24 Automotive Finance Manager Relationship Specialty Start Date End Date Andrea Whitfield DO [address] [facility] [place] [address] PCP - General Family Medicine 04/20/24 Automotive Finance Manager Relationship Specialty Start Date End Date Andrea Whitfield DO [address] [facility] [place] [address] PCP - General Family Medicine 04/20/24 Automotive Finance Manager Relationship Specialty Start Date End Date Andrea Whitfield DO [address] [facility] [place] [address] PCP - General Family Medicine 04/20/24 Automotive Finance Manager Relationship Specialty Start Date End Date Andrea Whitfield DO [address] [facility] [place] [address] PCP - General Family Medicine 04/20/24 FOR RECORDS PERTAINING TO PATIENTS WHO ARE OR HAVE BEEN ENROLLED IN A CHEMICAL DEPENDENCY/SUBSTANCEABUSE PROGRAM, SOME INFORMATION MAY BE OMITTED. This clinical summary was aggregated from multiple sources. Caution should be exercised in using it in the provision of clinical care. This summary normalizes information from multiple sources, and as a consequence, information in this document may materially change the coding, format and clinical context of patient data. In addition, data may be omitted in some cases. CLINICAL DECISIONS SHOULD BE BASED ON THE PRIMARY CLINICAL RECORDS. [facility]. provides no warranty or guarantee of the accuracy or completeness of information in this document.
[2024-08-01 01:06] LABS: Anti-Centromere B Ab <0.2 AI (0.0-0.9); Anti-Chromatin <0.2 AI (0.0-0.9); Anti-Jo <0.2 AI (0.0-0.9); Anti-Scleroderma-70 AB <0.2 AI (0.0-0.9); Anti-dsDNA Ab 26 IU/mL (0-9); Beef <0.10 kU/L (Class 0); Chocolate <0.10 kU/L (Class 0); Codfish <0.10 kU/L (Class 0); Corn <0.10 kU/L (Class 0); Egg, Whole <0.10 kU/L (Class 0); Milk (Cow) <0.10 kU/L (Class 0); Mussels <0.10 kU/L (Class 0); Peanut <0.10 kU/L (Class 0); Pork <0.10 kU/L (Class 0); RNP Ab <0.2 AI (0.0-0.9); SJOGREN'S Anti-SS-A test < 0.2 AI (0.0-0.9); SJOGREN'S Anti-SS-B test < 0.2 AI (0.0-0.9); Salmon <0.10 kU/L (Class 0); Shrimp <0.10 kU/L (Class 0); Smith Ab <0.2 AI (0.0-0.9); Soybean <0.10 kU/L (Class 0); Tuna <0.10 kU/L (Class 0); Wheat <0.10 kU/L (Class 0)
[2024-08-02 04:08] LABS: ACCA 46 units (0-90); ALCA 49 units (0-60); AMCA 30 units (0-100); Albumin 4.4 g/dL (2.9-4.4); Alpha-1-Globulins 0.2 g/dL (0.0-0.4); Alpha-2-Globulins 0.8 g/dL (0.4-1.0); Cytoplasmic Ab (C-ANCA) <1:20 titer (Neg:<1:20); Endomysial Antibody IgA Negative (Negative); Gamma Globulin 1.3 g/dL (0.4-1.8); Immunoglobulin A 138 mg/dL (87-352); Immunoglobulin E 14 IU/mL (6-495); Immunoglobulin G 1234 mg/dL (586-1602); Immunoglobulin M 97 mg/dL (26-217); PROEL- TOTAL PROTEIN 7.7 g/dL (6.0-8.5); Perinuclear Ab (P-ANCA) <1:20 titer (Neg:<1:20); gASCA 34 units (0-50); t-Transglutaminase IgA <2 U/mL (0-3)
== END | disposition home or self-care (01) ==
LOC: LAB 14:55
PROVIDERS: PCP Student in an Organized Health Care Education/Training Program
DX: K58.0 Irritable bowel syndrome with diarrhea (principal)
CPT/HCPCS: 36415; 80053; 82306; 82607; 82746; 82784; 82785; 83516; 83615; 84165; 84443; 85025; 85652; 86003; 86005; 86036; 86037; 86140; 86225; 86235; 86255; 86334; 86671

== ENCOUNTER 2024-08-11 11:25 | Day surgery (SDC) | payer OTHER, SELFPAY ==
[2024-08-11] VITALS (10 sets, daily range): BP systolic 83–127; BP diastolic 55–89; PULSE 70–84; RESP 16–18; TEMP 36.5–37.1; O2SAT 94–99; BMI 23.2
[2024-08-11 12:12] LABS: Internal QC Validated? YES +Cl - CLEAR BKGD; Pregnancy, Urine Negative Negative
--- NOTE | 2024-08-11 12:12 | HP.PCM_ITS ---
History and Physical Date of Admission: 08/11/24 SMITA SERRATO, is a 38 F who presents to the office today for establishment with [facility] for complaints of worsening diarrhea with urgency. She denies difficulty chewing and swallowing, heartburn, reflux, nausea, vomiting, abdominal bloating, pain, excessive gas, constipation, hematochezia, and melena. 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 Recently diagnosed with cholelithiasis without cholecystitis; consult placed to surgery but hasn't seen them. Currently denies any RUQ abdominal pain. 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 She avoids breakfast and lunch as she does not have regular access to a bathroom facility. Once home, she will have dinner and within 1 hour feels that everything she has eaten comes right out. She reports an alarming and unintentional 12 pound weight loss over 6 months. She reports historically having low vitamin B and D levels. She denies having a change in water source, fever, chills associated with diarrhea. Denies knowing of family history regarding IBD/IBS. Reports primary family history of renal cell carcinoma (sister) and colorectal cancer (father, p.grandfather). ROS Const Constitutional: No chills, fatigue, fever(s) or weight change Eyes Eyes: No change in vision ENT ENT: No abnormal hearing or difficulty swallowing Resp Respiratory: No cough Cardio Cardiology: No chest pain at rest, chest pain with exertion or leg pain with exertion Gastro GI: Positive for diarrhea; No abdominal pain, belching, bloating, change in bowel habits, change in stool character, coffee ground emesis, constipation, cramping, heartburn, difficulty swallowing, feeling full early, excessive flatus, incontinent of stools, Vomiting blood/hematemesis, Blood in stool, loose stools, Black,tarry stools, nausea/dyspepsia, pain with swallowing, vomiting or other Genitourinary-Female: No difficulty urinating Musc Musculoskeletal: No joint pain or leg pain with exertion Skin Skin: No yellowing of the eye or itchy eyes Neuro Neurology: No abnormal hearing Psych Psychiatric: No anxiety and No depression Endo Endocrine: Positive for cold intolerance; No fatigue, heat intolerance or weight change Aller/Imm Allergy/Immunologic: No food intolerance or itchy eyes Calvin/Lymp Hematologic/Lymphatic: No easy bleeding or easy bruising Exam Const General: cooperative, healthy appearing, comfortable and no acute distress Nutritional Appearance: average body habitus Orientation: alert HENMT Head: normal to inspection Ears: hearing grossly normal bilaterally Nose: external nose normal Face and sinus: normal facial exam and face symmetric Teeth and gingiva: dentition normal Eyes General: appearance normal, both eyes and all related structures Sclera: sclerae normal Neck Neck: normal visual inspection and full ROM Neck mass: No Chest Chest palpation & inspection: normal inspection of the chest Resp Effort & Inspection: normal respiratory effort, able to speak in complete sentences and symmetric chest movement GI Inspection: normal to inspection Palpation: soft and no hepatosplenomegaly Skin General: no rashes or lesions noted Neuro General: patient alert, patient awake, patient oriented x3 and moves all extremities Cognition: normal cognition Speech: speech normal Gait: normal gait Extrem General: full ROM Psych Appearance: well kempt Mental Status: mental status grossly normal Mood: congruent mood Affect: normal affect Speech and Movement: speech and movement normal Attitude: cooperative Thought Process: normal Assessment and Plan Assessment and Plan (1) Irritable bowel syndrome with diarrhea: Status: Acute (2) Short gut syndrome: Status: Acute Qualifiers: 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 Qualified Code(s): K90.821 - Short bowel syndrome with colon in continuity Orders: Orders Allergen, Food Profile 14 Today K58.0 - Irritable bowel syndrome with diarrhea CRP Today K58.0 - Irritable bowel syndrome with diarrhea Immunoglobulins G/A/M/E Today K58.0 - Irritable bowel syndrome with diarrhea FLAQUITO Comprehensive Panel Today K58.0 - Irritable bowel syndrome with diarrhea ENTERIC PATHOGEN PANEL STOOL Today K58.0 - Irritable bowel syndrome with diarrhea LDH Today K58.0 - Irritable bowel syndrome with diarrhea ANCA Today K58.0 - Irritable bowel syndrome with diarrhea Erythrocyte Sed Rate Today K58.0 - Irritable bowel syndrome with diarrhea Calprotectin, Stool Today K58.0 - Irritable bowel syndrome with diarrhea Pancreatic Elastase, Fecal Today K58.0 - Irritable bowel syndrome with diarrhea CBC W/Diff, Automated Today K58.0 - Irritable bowel syndrome with diarrhea Giardia Lamblia, Stool EIA Today K58.0 - Irritable bowel syndrome with diarrhea Stool Lactoferrin/WBC Today K58.0 - Irritable bowel syndrome with diarrhea CDIFF (PCR) Today K58.0 - Irritable bowel syndrome with diarrhea IBD Expanded Profile Today K58.0 - Irritable bowel syndrome with diarrhea Celiac Disease Profile Today K58.0 - Irritable bowel syndrome with diarrhea GIOVANNY + Protein Elect, Serum Today K58.0 - Irritable bowel syndrome with diarrhea Thyroid Stim Hormone (TSH) Today K58.0 - Irritable bowel syndrome with diarrhea Comprehensive Metabolic Profil Today K58.0 - Irritable bowel syndrome with diarrhea Vitamin D,25 Hydroxy Today K58.0 - Irritable bowel syndrome with diarrhea Vitamin B12 Today K58.0 - Irritable bowel syndrome with diarrhea Folates, (Folic Acid) Today K58.0 - Irritable bowel syndrome with diarrhea Colonoscopy 09/27/24 K58.0 - Irritable bowel syndrome with diarrhea Medications: New rifaximin 550 mg PO TID 42 tabs 2RF Plan SMITA SERRATO, is a 38 F who presents to the office today for establishment with [facility] for complaints of worsening diarrhea with urgency. Differential diagnoses include: EPI, IBS-D, IBD, SGS, food allergies, celiac. Discussed plans with her and she is agreeable. * blood for inflammatory, food allergy, thyroid, IBS/D markers * stool for inflammatory, enzyme, enteric markers * colonoscopy d/t alarm sx of 12# wt loss * rifaximin 550mg PO TID x2wks, 2RF * probiotics PO BID x2wks, starting second wk of rifaximin * call with results * office follow-up 3months I have examined the patient and the H&P has been reviewed. There are no clinical changes since date of exam.
--- NOTE | 2024-08-11 12:45 | COLBX_PTH ---
PATIENT: SMITA SERRATO LOC: EN U#:[id number] AGE/SX: 38/F ROOM: RE08/11/[address]: Dr. Ron Aldana DO : 1985 BED: DIS: 08/11/2024 SPEC #: [id number] RECD: 08/11/24 18:10 STATUS: KRISTINA REQ #: [id number] TRAV: 08/11/24 12:[address]: Ron Aldana DEPT: SURGICAL PATHOLOGY RECD BY: Catrachita Mcmahon ENTERED: 08/12/24 10:32 SP TYPE: COLON BX OT DR: Dr. Andrea Orona DO Tissues: A - Ileum, NOS B - COLON BIOPSY C - COLON BIOPSY Procedures: Surgery Specimen Level IV HEADER OPERATION: Colonoscopy biopsy PRE-OP DIAGNOSIS: Irritable bowel syndrome with diarrhea, short gut syndrome TISSUE SUBMITTED: A- Terminal ileum biopsy, B- Anastomosis biopsy, C- Random colonic biopsy MICROSCOPIC DIAGNOSIS A. Terminal ileum, biopsy: Focal acute enteritis. B. Anastomotic site, biopsy: Mild architectural change. No evidence of enteritis. C. Colon, random biopsy: No pathologic change. AM. 08/15/2024 MICROSCOPIC DESCRIPTION Slides are reviewed. GROSS DESCRIPTION A. Received in fixative is one container labeled with the patient's name and designated Terminal ileum biopsy. The specimen consists of multiple irregular fragments of light gore soft tissue that in aggregate measure 1.2 x 0.4 x 0.1 cm. The specimen is totally submitted in one cassette. B. Received in fixative is one container labeled with the patient's name and designated Anastomosis biopsy. The specimen consists of multiple irregular fragments of light gore soft tissue that in aggregate measure 1.0 x 0.4 x 0.1 cm. The specimen is totally submitted in one cassette. C. Received in fixative is one container labeled with the patient's name and designated Random colonic biopsy. The specimen consists of multiple irregular fragments of light gore soft tissue that in aggregate measure 1.5 x 1.0 x 0.1 cm. The specimen is totally submitted in one cassette. 08/12/2024 TC:2 CPT:31421g8
--- NOTE | 2024-08-11 13:14 | PCM.PRE.AN2 ---
ASA Classification* ASA Classification ASA Classification: 2 Assessment & Plan Anesthesia* Anesthesia Assessment Anesthesia Assessment: Discussed sedation and/or anesthesia options, risks, benefits, and alternatives with patient/parents/legal guardian/POA. Questions invited. The patient/parents/legal guardian/POA seems to understand and agrees to proceed with anesthesia plan. Reviewed the physical assessment, medical history, allergy history and patient home medications list prior to surgery/procedure/anesthetic and documented any changes. Performed airway and anesthesia risk assessments. Anesthesia Type Anesthesia Type: MAC History Source History Obtained from:: Patient and Chart Anesthesia Focused Assessment* Temperature: 98.1 F Pulse Rate: 79 Blood Pressure: 127/89 Respiratory Rate: 18 Pulse Ox: 99 Oxygen Delivery Method: Room Air Airway Assessment Mouth opens: >3 cm Mallampati Score: II Teeth Condition: Intact Neck Range of motion (ROM): Full ROM Focused Labs Anesthesia Preop lab: CBC WBC 7.2 K/mm3 (4.4-11.0) 07/26/24 15:06 RBC 4.36 M/mm3 (4.2-5.4) 07/26/24 15:06 Hgb 13.9 g/dL (12.0-15.0) 07/26/24 15:06 Hct 40.7 % (37-47) 07/26/24 15:06 Plt Count 195 K/mm3 (150-450) 07/26/24 15:06 CHEMISTRY Potassium 3.6 mmol/L (3.5-5.1) 07/26/24 15:06 Sodium 137 mmol/L (136-145) 07/26/24 15:06 Magnesium 2.1 mg/dL (1.6-2.6) 04/15/24 06:56 Phosphorus 2.5 mg/dL (2.5-4.9) 04/15/24 06:56 BUN 11 mg/dL (7-18) 07/26/24 15:06 Creatinine 0.97 mg/dL (0.55-1.02) 07/26/24 15:06 Glucose 87 mg/dL (74-106) 07/26/24 15:06 TSH 0.764 uIU/mL (0.358-3.740) 07/26/24 15:06 COAG Urine Test Negative Negative 08/11/24 11:55 Pre-Assessment Diagnosis/Proposed Procedure Planned Operative Procedure(s): CSCOPE Anesthesia History 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 When Was Last Pacemaker Check QUESTION #4 FULL TEXT: You/Your Family Experience fever (hyperthermia) with Anesthesia Last Oral Intake Last Oral intake: Last Oral Intake NPO since 09:30 08/11/24 12:13 Meds taken in AM with sips of No 08/11/24 12:13 water? Meds patient instructed to take am of surgery Any additional information?: Yes NPO since: 09:30 (Patient water at 9:30 AM.) PONV PONV - internal combustion engine subassembler: PONV - internal combustion engine subassembler Female Yes 08/09/24 15:32 HX of Motion Sickness Yes 08/09/24 15:32 HX of N/V After Surgery Yes 08/09/24 15:32 Non-Smoker Yes 08/09/24 15:32 Duration of Surgery greater No 08/09/24 15:32 than 60 minutes Number of Risk Factors 4 08/09/24 15:32 PONV Score Severe Risk 08/09/24 15:32 Height & Weight Height & Weight: Anesthesia: Height & Weight Height 5 ft 6 in 08/11/24 12:13 Weight: 65.3 kg 08/11/24 12:13 Body Mass Index (BMI) 23.2 08/11/24 12:13 Respiratory Assessment Respiratory Assessment - internal combustion engine subassembler: Respiratory Tract Infection Hx - internal combustion engine subassembler Hx Respiratory Tract Infection No 08/09/24 15:32 STOP Sleep Apnea STOP Sleep Apnea - internal combustion engine subassembler: STOP Sleep Apnea - internal combustion engine subassembler Hx Hypertension No 08/09/24 15:32 Hx Sleep Apnea No 08/09/24 15:32 CPAP BIPAP Do you snore loudly (louder No 08/09/24 15:32 than talking or can be heard Do you often feel tired/ No 08/09/24 15:32 fatigued/ sleepy during daytime? Has anyone observed you stop No 08/09/24 15:32 breathing during sleep? STOP Results Negative 08/09/24 15:32 QUESTION #5 FULL TEXT : Do you snore loudly (louder than talking or can be heard through closed doors)? 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 Specify any problems Hx of Preganancy in last 3 No 08/09/24 15:32 Months Nurse Filling Out Transfusion DSCHRIBER 08/09/24 15:32 & Questions: Date: 08/09/24 08/09/24 15:32 Time: 15:34 08/09/24 15:32 Patient unable to answer at this time (ie. confused, unrespo /Reproduction History /Reproductive History - internal combustion engine subassembler: /Reproductive Hx- internal combustion engine subassembler Hx Now No 08/09/24 15:32 Gestational Age (in weeks): EDC: Hx Hx Para Hx Section SAB No 08/09/24 15:32 PFSH Medical History Back pain Chronic diarrhea Anemia RUQ pain Periumbilic abdominal rigidity Wears contact lenses Alcohol use Low iron Former smoker Home Medications ?Medication ?Instructions ?Recorded ?Last Taken ?Type cholecalciferol (vitamin D3) 25 25 mcg PO DAILY 08/09/24 Unknown History mcg (1,000 unit) tablet (Vitamin D3) cyanocobalamin-liver extract tablet 1 tab PO DAILY 08/09/24 Unknown History Allergy/AdvReac Type Severity Reaction Status Date / Time amoxicillin (From Augmentin) Allergy Intermediate Rash Verified 08/11/24 12:11 clavulanic acid (From Allergy Intermediate Rash Verified 08/11/24 12:11 Augmentin) cephalexin (From Keflex) Allergy Rash Verified 08/11/24 12:11 Family History Mother Heart disease Thyroid disorder Grandmother Diabetes Heart disease Hypertension Sister Seizures Aunt Breast cancer Surgical History History of dilation and curettage History of colostomy reversal History of colostomy History of hysteroscopy Social History Smoking Status: Former smoker quit date: 02/28/08 alcohol intake: never substance use type: does not use Review of Systems (Anesthesia) ROS Narrative System reviewed and no additional complaints, except as documented.
--- NOTE | 2024-08-11 14:13 | OP.COLON_ITS ---
Patient Name: Soco Chu Procedure Date: 08/11/2024 1:45 PM Date of : 1985 Age: 38 Procedure: Colonoscopy Indications: Chronic diarrhea Providers: Ron Aldana DO Referring MD: Andrea Orona Medicines: Monitored Anesthesia Care Patient Profile: This is a 38 year old female. Refer to note in patient chart for documentation of history and physical. Last Colonoscopy: date unknown. Unable to locate last colonoscopy report. Complications: No immediate complications. Procedure: Pre-Anesthesia Assessment: - Prior to the procedure, a History and Physical was performed, and patient medications and allergies were reviewed. The patient is competent. The risks and benefits of the procedure and the sedation options and risks were discussed with the patient. All questions were answered and informed consent was obtained. Patient identification and proposed procedure were verified by the physician in the pre-procedure area. Mental Status Examination: alert and oriented. Airway Examination: normal oropharyngeal airway and neck mobility. Respiratory Examination: clear to auscultation. CV Examination: normal. Prophylactic Antibiotics: The patient does not require prophylactic antibiotics. Prior Anticoagulants: The patient has taken no anticoagulant or antiplatelet agents except for NSAID medication. ASA Grade Assessment: II - A patient with mild systemic disease. After reviewing the risks and benefits, the patient was deemed in satisfactory condition to undergo the procedure. The anesthesia plan was to use monitored anesthesia care (MAC). Immediately prior to administration of medications, the patient was re-assessed for adequacy to receive sedatives. The heart rate, respiratory rate, oxygen saturations, blood pressure, adequacy of pulmonary ventilation, and response to care were monitored throughout the procedure. The physical status of the patient was re-assessed after the procedure. After I obtained informed consent, the scope was passed under direct vision. Throughout the procedure, the patient's blood pressure, pulse, and oxygen saturations were monitored continuously. The Colonoscope was introduced through the anus and advanced to 15 cm into the ileum. The colonoscopy was performed without difficulty. The patient tolerated the procedure well. The quality of the bowel preparation was adequate. Scope In: 1:56:05 PM Scope Out: 2:08:39 PM Total Procedure Duration Time 0 hours 12 minutes 34 seconds Findings: The perianal and digital rectal examinations were normal. The colon (entire examined portion) appeared normal. Biopsies were taken with a cold forceps for histology. Verification of patient identification for the specimen was done. Estimated blood loss was minimal. There was evidence of a prior functional end-to-end ileo-colonic anastomosis at the hepatic flexure. This was patent and was characterized by healthy appearing mucosa. The anastomosis was traversed. Several biopsies were obtained with cold forceps for histology in a targeted manner. Verification of patient identification for the specimen was done. Estimated blood loss was minimal. The terminal ileum appeared normal. Biopsies were taken with a cold forceps for histology. Biopsies were taken with a cold forceps for histology. Estimated blood loss: none. Impression: - The entire examined colon is normal. Biopsied. - Patent functional end-to-end ileo-colonic anastomosis, characterized by healthy appearing mucosa. - The examined portion of the ileum was normal. Biopsied. - Several biopsies were obtained. Recommendation: - Discharge patient to home. - Resume previous diet. - Continue present medications. - Await pathology results. - Repeat colonoscopy in 10 years for screening purposes. Procedure Code(s): --- Professional --- 88452, Colonoscopy, flexible; with biopsy, single or multiple CPT copyright 2021 [employer]. All rights reserved. The codes documented in this report are preliminary and upon [facility] plans staff officer review may be revised to meet current compliance requirements. Ron Aldana DO 08/11/2024 2:13:05 PM This report has been signed electronically. Number of Addenda: 0 Note Initiated On: 08/11/2024 1:45 PM
--- NOTE | 2024-08-11 14:13 | OP.CCLET_ITS ---
08/11/2024 Andrea Orona [address] [place] [address] Re : Colonoscopy procedure for Soco Chu Dear Dr. Orona This procedure was performed on July. My impressions and recommendations are as follows: Impressions : - The entire examined colon is normal. Biopsied. - Patent functional end-to-end ileo-colonic anastomosis, characterized by healthy appearing mucosa. - The examined portion of the ileum was normal. Biopsied. - Several biopsies were obtained. Recommendations : - Discharge patient to home. - Resume previous diet. - Continue present medications. - Await pathology results. - Repeat colonoscopy in 10 years for screening purposes. My findings are described in the full procedure note, which is enclosed. If I can be of further assistance, please feel free to contact me at . Sincerely, Ron Aldana, 08/11/2024 2:13:05 PM This report has been signed electronically.
--- NOTE | 2024-08-11 14:16 | PCM.POST.ANE ---
Anesthesia: Postop Eval I Current Vital Signs Temperature: 97.7 F Pulse Rate: 82 Blood Pressure: 83/61 Respiratory Rate: 16 Pulse Ox: 96 Oxygen Delivery Method: Room Air Assessment Airway patent: Yes Spontaneous unlabored respirations: Yes Mental status: Asleep nausea: No Vomiting: No Anesthesia Complication: No Fluid Hydration Crystalloid volume administer (ml): 60 Total IV fluid infused: 60 Progress Note Anesthesia document: Postop Eval 1 completed: Yes
--- NOTE | 2024-08-11 17:08 | PCM.POSTANE2 ---
Anesthesia Postop Eval I Sum Postop Eval Completion status Anesthesia document: Postop Eval 1 completed: Yes Anesthesia Postop Eval I Summary Anesthesia Postop Eval I Summary: Anesthesia Postop Eval I: Assessment Summary Airway patent Yes 08/11/24 14:17 [email or web address] Spontaneous unlabored Yes 08/11/24 14:17 [email or web address] respirations Mental status Asleep 08/11/24 14:17 [email or web address] nausea No 08/11/24 14:17 [email or web address] Vomiting No 08/11/24 14:17 [email or web address] Anesthesia Postop Eval I: Fluid Summary Crystalloid volume administer 60 08/11/24 14:17 [email or web address] (ml) Colloids volume administered ( ml) Blood Product volume administered (ml) Total IV fluid infused 60 08/11/24 14:17 [email or web address] Anesthesia Postop Eval I: Summary Notes Anesthesia Complication No 08/11/24 14:17 [email or web address] Anesthesia Complication Comment: Post-operative progress note Anesthesia: Postop Eval II Evaluation Mental status: Awake and Calm Pain Level: 0 nausea: No Vomiting: No Complications Anesthesia Complication: No
== END 2024-08-11 15:12 | disposition home or self-care (01) ==
LOC: EN 11:26 → AC 11:28
PROVIDERS: Anesthesiology; PCP Student in an Organized Health Care Education/Training Program; Referring Provider Student in an Organized Health Care Education/Training Program; Visit Provider Internal Medicine Gastroenterology
PROC: 0DJD8ZZ Inspection of Lower Intestinal Tract, Via Natural or Artificial Opening Endoscopic (ICD-10-PCS; CPT 45378; principal; 2024-08-11 12:40)
DX: K58.0 Irritable bowel syndrome with diarrhea (principal); K90.821 Short bowel syndrome with colon in continuity; Z98.0 Intestinal bypass and anastomosis status; Z87.891 Personal history of nicotine dependence
CPT/HCPCS: 45380; 81025; 88305; A4216; J2405

== ENCOUNTER → 2024-08-24 | Outpatient (CLI) | payer OTHER, SELFPAY ==
[2024-08-28 02:06] LABS: Calprotectin, Stool 11 ug/g (0-120)
[2024-08-29 04:06] LABS: Giardia Lamblia, Stool EIA Negative (Negative); Pancreatic Elastase, Fecal 550 (>200)
== END | disposition home or self-care (01) ==
LOC: LABSPEC 15:58
PROVIDERS: PCP Student in an Organized Health Care Education/Training Program
DX: K58.0 Irritable bowel syndrome with diarrhea (principal)
CPT/HCPCS: 82653; 83630; 83993; 87329; 87493; 87506

== ENCOUNTER → 2024-10-05 | Outpatient (CLI) | payer OTHER, SELFPAY ==
--- NOTE | 2024-10-05 09:03 | MRI_ITS ---
STUDY: MR ENTEROGRAPHY WITH CONTRAST REASON FOR EXAM: Female, 38 years old. K58.0 - Irritable bowel syndrome with diarrhea, F/U TO COLONOSCOPY THAT SHOWED INFLAMMATION TECHNIQUE: Multipulse sequence MRI performed with IV contrast according to standard MR enterography protocol following administration of oral contrast for maximal bowel distention. Images were obtained from the dome of the diaphragm to the symphysis pubis. IV 13 cc clariscan was administered intravenously. TECHNICAL QUALITY: Image Quality: Satisfactory Small Bowel Distension: Adequate. COMPARISON: Small bowel follow-through dated April 14, 2024 FINDINGS: FINDINGS: Bowel: Bowel wall thickening: Absent. Skip lesions: None. Vascularity: Normal. Enhancement: Normal. Fistula: None. Abscess: None. Other Findings: The visualized lung bases are unremarkable. The visualized portions of the heart are within normal limits. Normal liver. Normal gallbladder and extrahepatic biliary system. Normal spleen. Normal pancreas. Normal bilateral adrenal glands. Normal right kidney. Normal left kidney. Normal visualized stomach. Normal small intestine. Normal colon. There is non-visualization of the appendix. No visualized bowel wall thickening or masses or diverticula. No stricturing is seen. Normal abdominal aorta. Normal inferior vena cava. Normal retroperitoneum. Normal urinary bladder. Unremarkable uterus and adnexa. Several small simple ovarian cysts maximally measuring 2.22 cm noted which does not requiring additional imaging or follow-up. Normal abdominal wall. Normal osseous structures. MRI/Enterography Abd/Pel IMPRESSION: 1. Gallstones 2. No demonstrated bowel abnormalities MR enterography References: Active bowel inflammation causes restricted diffusion on diffusion-weighted images which appears as bright signal. Electronically Signed: Jhonathan Aguirre MD at 15:58 EST Reading Location ID and State: [facility] / [place] , Service support ,
[2024-10-05 10:19] VITALS: BP 108/55; PULSE 55; RESP 18; O2SAT 97; BMI 22.8
[2024-10-05] MEDS: Glucagon 1 MG/ML Syringe IV (11:20)
[2024-10-05] MEDS: 0.9% Saline Lock 10 ML Syringe IV (11:21)
[2024-10-05 11:33] VITALS: BP 103/61; PULSE 65; RESP 16; O2SAT 95
== END | disposition home or self-care (01) ==
LOC: MRI 09:00
PROVIDERS: PCP Student in an Organized Health Care Education/Training Program; Referring Provider Internal Medicine Gastroenterology; Visit Provider Internal Medicine Gastroenterology
DX: K58.0 Irritable bowel syndrome with diarrhea (principal); K90.821 Short bowel syndrome with colon in continuity
CPT/HCPCS: 74183; 96374; A9575; A4216; J1610

== ENCOUNTER 2024-10-31 12:21 | Day surgery (SDC) | payer OTHER, SELFPAY ==
[2024-10-31 12:34] VITALS: BP 109/66; PULSE 81; RESP 16; TEMP 37.7; O2SAT 100; BMI 23.5
--- NOTE | 2024-10-31 12:34 | PRE.ANES_ITS ---
ASA Classification* ASA Classification ASA Classification: 2 Assessment & Plan Anesthesia* Anesthesia Assessment Anesthesia Assessment: Discussed sedation and/or anesthesia options, risks, benefits, and alternatives with patient/parents/legal guardian/POA. Questions invited. The patient/parents/legal guardian/POA seems to understand and agrees to proceed with anesthesia plan. Reviewed the physical assessment, medical history, allergy history and patient home medications list prior to surgery/procedure/anesthetic and documented any changes. Performed airway and anesthesia risk assessments. Anesthesia Type Anesthesia Type: MAC Anesthesia Focused Assessment* Airway Assessment Mouth opens: >3 cm Mallampati Score: II Focused Labs Anesthesia Preop lab: CBC WBC 7.2 K/mm3 (4.4-11.0) 07/26/24 15:06 07/26/24 RBC 4.36 M/mm3 (4.2-5.4) 07/26/24 15:06 07/26/24 Hgb 13.9 g/dL (12.0-15.0) 07/26/24 15:06 07/26/24 Hct 40.7 % (37-47) 07/26/24 15:06 07/26/24 Plt Count 195 K/mm3 (150-450) 07/26/24 15:06 07/26/24 CHEMISTRY Potassium 3.6 mmol/L (3.5-5.1) 07/26/24 15:06 07/26/24 Sodium 137 mmol/L (136-145) 07/26/24 15:06 07/26/24 Magnesium 2.1 mg/dL (1.6-2.6) 04/15/24 06:56 04/15/24 Phosphorus 2.5 mg/dL (2.5-4.9) 04/15/24 06:56 04/15/24 BUN 11 mg/dL (7-18) 07/26/24 15:07/26/24 Creatinine 0.97 mg/dL (0.55-1.02) 07/26/24 15:06 07/26/24 Glucose 87 mg/dL (74-106) 07/26/24 15:06 07/26/24 TSH 0.764 uIU/mL (0.358-3.740) 07/26/24 15:02/11 COAG Urine Test Negative Negative 08/11/24 11:55 08/11/24 Pre-Assessment Diagnosis/Proposed Procedure Planned Operative Procedure(s): EGD Anesthesia History Anesthesia History - preform plate maker: Anesthesia History - preform plate maker Hx Hospitalization Yes: 03/2024 SEVERE ABDOMINAL 10/28/24 15:36 PAIN Any Problems With Anesthesia Yes: N,V 10/28/24 15:36 Cholinesterase deficiency No 10/28/24 15:36 You/Your Family Experience No 10/28/24 15:36 fever (hyperthermia) with Relationship Recent Exposure to Contagious No 08/11/24 12:13 Disease Does patient have nerve No 10/28/24 15:36 stimulator Patient instructed to have device shut off --Does patient have Pacemaker or ICD? When Was Last Pacemaker Check QUESTION #4 FULL TEXT: You/Your Family Experience fever (hyperthermia) with Anesthesia Last Oral Intake Last Oral intake: Last Oral Intake NPO since Meds taken in AM with sips of water? Meds patient instructed to take am of surgery PONV PONV - preform plate maker: PONV - preform plate maker Female Yes 10/28/24 15:36 HX of Motion Sickness Yes 10/28/24 15:36 HX of N/V After Surgery Yes 10/28/24 15:36 Non-Smoker Yes 10/28/24 15:36 Duration of Surgery greater No 10/28/24 15:36 than 60 minutes Number of Risk Factors 4 10/28/24 15:36 PONV Score Severe Risk 10/28/24 15:36 Height & Weight Height & Weight: Anesthesia: Height & Weight Height 5 ft 6 in 10/05/24 10:19 Respiratory Assessment Respiratory Assessment - preform plate maker: Respiratory Tract Infection Hx - preform plate maker Hx Respiratory Tract Infection No 10/28/24 15:36 STOP Sleep Apnea STOP Sleep Apnea - preform plate maker: STOP Sleep Apnea - preform plate maker Hx Hypertension No 10/28/24 15:36 Hx Sleep Apnea No 10/28/24 15:36 CPAP BIPAP Do you snore loudly (louder No 10/28/24 15:36 than talking or can be heard Do you often feel tired/ No 10/28/24 15:36 fatigued/ sleepy during daytime? Has anyone observed you stop No 10/28/24 15:36 breathing during sleep? STOP Results Negative 10/28/24 15:36 QUESTION #5 FULL TEXT : Do you snore loudly (louder than talking or can be heard through closed doors)? Tobacco Use History Tobacco Use History - preform plate maker: Tobacco Use History - preform plate maker Tobacco Use Smoking Status Former smoker 10/28/24 15:36 Hx Tobacco Use No 10/28/24 15:36 Years Smoking Packs Smoked per Day Smoking Cessation Date was No - quit smoking greater 10/28/24 15:36 within the last 15 years than 15 years ago Hx Smoking Cessation Date 09/21/05 10/28/24 15:36 Hx Smoking Cessation No 10/28/24 15:36 Counseling Hematologic Medial History Hematologic Hx - preform plate maker: Hematologic Medical Hx - back tender fourdrinier Hx of Blood Transfusion No 10/28/24 15:36 Hx of Transfusion in last 3 No 10/28/24 15:36 Months Date of Last Transfusion (if within last 3 months) Ever experience any problems No 10/28/24 15:36 with transfusion(s)? Specify any problems Hx of Preganancy in last 3 No 10/28/24 15:36 Months Nurse Filling Out Transfusion [facility] 10/28/24 15:36 & Questions: Date: 10/28/24 10/28/24 15:36 Time: 15:44 10/28/24 15:36 Patient unable to answer at this time (ie. confused, unrespo /Reproduction History /Reproductive History - preform plate maker: /Reproductive Hx- preform plate maker Hx Now No 10/28/24 15:36 Gestational Age (in weeks): EDC: Hx Hx Para Hx Section SAB No 10/28/24 15:36 PFSH Medical History History of Crohn's disease Back pain Chronic diarrhea Anemia RUQ pain Periumbilic abdominal rigidity Wears contact lenses Alcohol use Low iron Former smoker Home Medications ?Medication ?Instructions ?Recorded ?Last Taken ?Type cholecalciferol (vitamin D3) 25 25 mcg PO DAILY Unknown History mcg (1,000 unit) tablet (Vitamin D3) cyanocobalamin (vitamin B-12) 1,000 mcg PO QDAY Unknown History 1,000 mcg capsule ferrous sulfate 325 mg (65 mg 325 mg PO BID 10/10/24 U nknown History iron) tablet hyoscyamine sulfate 0.125 mg tablet 0.125 mg PO BID-QI D PRN abdominal 10/13/24 Unknown Rx discomfort #120 tabs Allergy/AdvReac Type Severity Reaction Status Date / Time amoxicillin (From Augmentin) Allergy Intermediate Rash Verified 08/11/24 12:11 clavulanic acid (From Allergy Intermediate Rash Verified 08/11/24 12:11 Augmentin) cephalexin (From Keflex) Allergy Rash Verified 08/11/24 12:11 Family History Mother Heart disease Thyroid disorder Grandmother Diabetes Heart disease Hypertension Sister Seizures Aunt Breast cancer Father Colon cancer Grandfather Colon cancer Surgical History History of dilation and curettage History of colostomy reversal History of colostomy History of hysteroscopy Social History Smoking Status: Former smoker quit date: 02/28/08 alcohol intake: never substance use type: does not use Review of Systems (Anesthesia) ROS Narrative System reviewed and no additional complaints, except as documented.
[2024-10-31 12:54] LABS: Internal QC Validated? YES +Cl - CLEAR BKGD
[2024-10-31 12:55] LABS: Pregnancy, Urine Negative Negative
--- NOTE | 2024-10-31 12:56 | PCM.HP.STD ---
HPI - General General Date of Admission: 10/31/24 Date of Service: 10/31/24 Chief Complaint: Abdominal pain HPI Narrative SMITA SERRATO, is a 39 F who presents today for endoscopic evaluation of abdominal pain. OV 07.26.24 Colonoscopy 08.11.24 The entire examined colon is normal. Biopsied. Patent functional end-to-end ileo-colonic anastomosis, characterized by healthy appearing mucosa. examined portion of the ileum was normal. Biopsied. Several biopsies were obtained. MR Enterography 10.05.24 1. Gallstones 2. No demonstrated bowel abnormalities OV 10.10.24 pt reports continued symptoms of 10-12 bm per day if she does not eat and if she does eat, 20+ bm per day; always diarrhea, blood noted in stool a few times a week. Pt reports she has always had loose stool, but has been extreme since March 2024. PFSH Medical History History of Crohn's disease Back pain Chronic diarrhea Anemia RUQ pain Periumbilic abdominal rigidity Wears contact lenses Alcohol use Low iron Former smoker Home Medications ?Medication ?Instructions ?Recorded ?Last Taken ?Type cholecalciferol (vitamin D3) 25 25 mcg PO DAILY 08/09/24 Unknown History mcg (1,000 unit) tablet (Vitamin D3) cyanocobalamin (vitamin B-12) 1,000 mcg PO QDAY 10/10/24 Unknown History 1,000 mcg capsule ferrous sulfate 325 mg (65 mg 325 mg PO BID 10/10/24 Unknown History iron) tablet hyoscyamine sulfate 0.125 mg tablet 0.125 mg PO BID-QID PRN abdominal 10/13/24 Unknown Rx discomfort #120 tabs Allergy/AdvReac Type Severity Reaction Status Date / Time amoxicillin (From Augmentin) Allergy Intermediate Rash Verified 08/11/24 12:11 clavulanic acid (From Allergy Intermediate Rash Verified 08/11/24 12:11 Augmentin) cephalexin (From Keflex) Allergy Rash Verified 08/11/24 12:11 Family History Mother Heart disease Thyroid disorder Grandmother Diabetes Heart disease Hypertension Sister Seizures Aunt Breast cancer Father Colon cancer Grandfather Colon cancer Surgical History History of dilation and curettage History of colostomy reversal History of colostomy History of hysteroscopy Social History Smoking Status: Former smoker quit date: 02/28/08 alcohol intake: never substance use type: does not use ROS Constitutional Constitutional: Denies fatigue, fever(s), poor appetite, weight gain or weight loss Gastrointestinal Gastrointestinal: Denies belching, bloating, change in bowel habits, change in stool character, chewing difficulty, coffee ground emesis, constipation, cramping, diarrhea, dyspepsia, dysphagia, early satiety, excessive flatus, fecal incontinence, heartburn, hematemesis, hematochezia, hemorrhoids, loose stools, melena, nausea, odynophagia, rectal bleeding, tenesmus, vomiting or weight changes Vital Signs Vital Signs Vital Signs: 10/31/24 12:34 10/31/24 12:34 Temperature 99.8 F H Temperature Source Temporal Pulse Rate 81 Respiratory Rate 16 Respiratory Pattern Normal Blood Pressure 109/66 Blood Pressure Mean 80 Blood Pressure Source Monitor Blood Pressure Position Sitting Blood Pressure Location Left Arm Pulse Ox 100 Oxygen Delivery Method Room Air Weight Weight: 145 lb 8.081 oz Body Mass Index (BMI) 23.5 Physical Exam Const alert, oriented x3, no apparent distress and healthy appearing General Appearance: cooperative GI normal to inspection, nondistended, normoactive bowel sounds, soft to palpation, non-tender and non-distended Percussion: normal to percussion Rectal Exam: deferred Results Lab / Micro Data Labs: Laboratory Results - last 24 hr 10/31/24 12:30: Urine Test Negative Assessment & Plan Assessment/Plan (1) Short gut syndrome: QUALIFIERS: 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 However notes was never followed up with anti-Soliz antibody, CCP or any other protein electrophoresis and antibody levels. Also she is not seeing a network engineering advisor. She has no skin lesions to note that would be consistent with SLE or discoid lupus. (2) Irritable bowel syndrome with diarrhea: Status: Acute Plan: Her colonoscopy did show a some inflammation around her terminal ileum. So I am suspect that she may have inflammatory bowel disease that was not positive for antibody analysis so she would need a capsule endoscopy. She will need a agile capsule first and if that passes that she could have a capsule endoscopy.
--- NOTE | 2024-10-31 13:15 | IMM_PTH ---
PATIENT: SMITA SERRATO LOC: EN U#:[id number] AGE/SX: 39/F ROOM: RE10/31/[address]: Dr. Ron Aldana DO : 1985 BED: DIS: 10/31/2024 SPEC #: [id number] RECD: 10/31/24 15:09 STATUS: KRISTINA REQ #: [id number] TRAV: 10/31/24 13:[address]: Ron Aldana DEPT: IMMUNOHISTOCHEMISTRY RECD BY: Catalino Ford ENTERED: 10/31/24 15:09 SP TYPE: IMMUNO OTHR DR: Dr. Andrea Orona DO Tissues: B - Gastric mucous membrane Procedures: H Pylori (initial) PHYSICIAN & INSTITUTION [place] [id number] SPECIMEN INFORMATION: Tissue Source: B- Gastric antrum biopsy Clinical Info: Short gut syndrome Specimen Number: [id number] CPT code: 14843 METHODOLOGY: Deparaffinized sections of prefer/formalin-fixed tissue or PAP/DQ stained slides are incubated with monoclonal/polyclonal antibodies/oligonucleotide probes. Localization is made via biotin free immunoperoxidase method. Appropriate controls are performed and reacted as expected. Results on target cell population are indicated in the following table: RESULTS: ANTIBODY / CLONE RESULT Block B H Pylori (polyclonal) positive These tests were developed and their performance characteristics determined by [facility]. They may not have been cleared or approved by the [place]. Food and Drug Administration. The FDA has determined that such clearance or approval is not necessary. The above immunohistochemical/dualISH markers are ordered and reviewed by the Pathologist. INTERPRETATION: B. Gastric antrum, biopsy: Positive for numerous Helicobacter pylori organisms. 11/01/2024
--- NOTE | 2024-10-31 13:15 | EGD_PTH ---
PATIENT: SMITA SERRATO LOC: EN U#:[id number] AGE/SX: 39/F ROOM: RE10/31/[address]: Dr. Ron Aldana DO : 1985 BED: DIS: 10/31/2024 SPEC #: [id number] RECD: 10/31/24 13:53 STATUS: KRISTINA LISHA #: [id number] TRAV: 10/31/24 13:[address]: Ron Aldana DEPT: SURGICAL PATHOLOGY RECD BY: Emily Matt ENTERED: 10/31/24 14:24 SP TYPE: EGD BIOPSY YAHAIRA DR: Dr. Andrea Orona DO Tissues: A - Duodenum, NOS B - Gastric mucous membrane Procedures: Surgery Specimen Level IV HEADER OPERATION: EGD and biopsy PRE-OP DIAGNOSIS: Short gut syndrome TISSUE SUBMITTED: A- Duodenum biopsy, B- Gastric antrum biopsy MICROSCOPIC DIAGNOSIS A. Duodenum, biopsy: Fragments of duodenal mucosa with villous blunting, non-specific chronic inflammation and Saima's gland hyperplasia. B. Gastric antrum, biopsy: Moderate chronic active gastritis. See comment. 11/01/2024 COMMENT B. The results of immunohistochemistry for Helicobacter pylori will be reported separately ([id number]). MICROSCOPIC DESCRIPTION Slides are reviewed. GROSS DESCRIPTION A. Received in fixative is one container labeled with the patient's name and designated Duodenum biopsy. The specimen consists of two irregular fragments of light gore soft tissue that in aggregate measure 0.9 x 0.3 x 0.1 cm. The specimen is totally submitted in one cassette. B. Received in fixative is one container labeled with the patient's name and designated Gastric antrum biopsy. The specimen consists of multiple irregular fragments of light gore soft tissue that in aggregate measure 1.2 x 0.5 x 0.1 cm. The specimen is totally submitted in one cassette. 10/31/2024 TC:2 CPT:45270e6
--- NOTE | 2024-10-31 13:46 | OP.EGD_ITS ---
Patient Name: Soco Chu Procedure Date: 10/31/2024 1:31 PM Date of : 1985 Age: 39 Procedure: Upper GI endoscopy Indications: Epigastric abdominal pain Providers: Ron Aldana DO Medicines: Monitored Anesthesia Care Patient Profile: This is a 39 year old female. Refer to note in patient chart for documentation of history and physical. Patient has symptoms of chronic epigastric abdominal pain. Complications: No immediate complications. Procedure: Pre-Anesthesia Assessment: - Prior to the procedure, a History and Physical was performed, and patient medications and allergies were reviewed. The patient is competent. The risks and benefits of the procedure and the sedation options and risks were discussed with the patient. All questions were answered and informed consent was obtained. Patient identification and proposed procedure were verified by the physician in the pre-procedure area. Mental Status Examination: alert and oriented. Airway Examination: normal oropharyngeal airway and neck mobility. Respiratory Examination: clear to auscultation. CV Examination: normal. Prophylactic Antibiotics: The patient does not require prophylactic antibiotics. Prior Anticoagulants: The patient has taken no anticoagulant or antiplatelet agents. ASA Grade Assessment: II - A patient with mild systemic disease. After reviewing the risks and benefits, the patient was deemed in satisfactory condition to undergo the procedure. The anesthesia plan was to use monitored anesthesia care (MAC). Immediately prior to administration of medications, the patient was re-assessed for adequacy to receive sedatives. The heart rate, respiratory rate, oxygen saturations, blood pressure, adequacy of pulmonary ventilation, and response to care were monitored throughout the procedure. The physical status of the patient was re-assessed after the procedure. After obtaining informed consent, the endoscope was passed under direct vision. Throughout the procedure, the patient's blood pressure, pulse, and oxygen saturations were monitored continuously. The gastroscope was introduced through the mouth, and advanced to the third part of duodenum. The upper GI endoscopy was accomplished without difficulty. The patient tolerated the procedure well. Scope In: 1:38:49 PM Scope Out: 1:42:10 PM Total Procedure Duration Time 0 hours 3 minutes 21 seconds Findings: The examined esophagus was normal. Diffuse mild inflammation characterized by erythema was found in the gastric body and in the gastric antrum. Biopsies were taken with a cold forceps for histology. Verification of patient identification for the specimen was done. Estimated blood loss was minimal. Biopsies were taken with a cold forceps for Helicobacter pylori testing. Verification of patient identification for the specimen was done. Estimated blood loss was minimal. No gross lesions were noted in the second portion of the duodenum. Biopsies were taken with a cold forceps for histology. Verification of patient identification for the specimen was done. Estimated blood loss was minimal. Impression: - Normal esophagus. - Bile gastritis. Biopsied. - No gross lesions in the second portion of the duodenum. Biopsied. Recommendation: - Discharge patient to home. - Resume previous diet. - Continue present medications. - Await pathology results. Procedure Code(s): --- Professional --- 23821, Esophagogastroduodenoscopy, flexible, transoral; with biopsy, single or multiple CPT copyright 2021 [employer]. All rights reserved. The codes documented in this report are preliminary and upon bottle machine operator review may be revised to meet current compliance requirements. Ron Aldana DO 10/31/2024 1:45:46 PM This report has been signed electronically. Number of Addenda: 0 Note Initiated On: 10/31/2024 1:31 PM
[2024-10-31 13:50] VITALS: BP 96/66; PULSE 89; RESP 16; TEMP 36.2; O2SAT 97
[2024-10-31 13:55] VITALS: BP 101/78; PULSE 71; RESP 16; O2SAT 96
[2024-10-31 14:00] VITALS: BP 100/64; BP 109/66; PULSE 64; RESP 16; TEMP 36.9; O2SAT 98
--- NOTE | 2024-10-31 14:03 | PCM.POST.ANE ---
Anesthesia: Postop Eval I Current Vital Signs Temperature: 97.2 F Pulse Rate: 72 Blood Pressure: 96/66 Respiratory Rate: 16 Pulse Ox: 97 Oxygen Delivery Method: Room Air Assessment Airway patent: Yes Spontaneous unlabored respirations: Yes Mental status: Awake nausea: Yes Vomiting: No Anesthesia Complication: Yes Anesthesia Complication Comment:: PONV, promethazine adm IV in PACU by anesthesia Fluid Hydration Crystalloid volume administer (ml): 40 Total IV fluid infused: 40 Progress Note Anesthesia document: Postop Eval 1 completed: Yes
[2024-10-31 14:05] VITALS: BP 96/66; PULSE 72; RESP 16; TEMP 36.2; O2SAT 97
[2024-10-31 14:21] VITALS: BP 109/66
--- NOTE | 2024-10-31 14:54 | PCM.POSTANE2 ---
Anesthesia Postop Eval I Sum Postop Eval Completion status Anesthesia document: Postop Eval 1 completed: Yes Anesthesia Postop Eval I Summary Anesthesia Postop Eval I Summary: Anesthesia Postop Eval I: Assessment Summary Airway patent Yes 10/31/24 14:05 [email or web address] Spontaneous unlabored Yes 10/31/24 14:05 [email or web address] respirations Mental status Awake 10/31/24 14:05 [email or web address] nausea Yes 10/31/24 14:05 [email or web address] Vomiting No 10/31/24 14:05 [email or web address] Anesthesia Postop Eval I: Fluid Summary Crystalloid volume administer 40 10/31/24 14:05 [email or web address] (ml) Colloids volume administered ( ml) Blood Product volume administered (ml) Total IV fluid infused 40 10/31/24 14:05 [email or web address] Anesthesia Postop Eval I: Summary Notes Anesthesia Complication Yes 10/31/24 14:05 [email or web address] Anesthesia Complication PONV, promethazine 10/31/24 14:05 [email or web address] Comment: adm IV in PACU by anesthesia Post-operative progress note Anesthesia: Postop Eval II Evaluation Mental status: Awake Pain Level: 0 nausea: No Vomiting: No
== END 2024-10-31 14:28 | disposition home or self-care (01) ==
LOC: EN 12:22 → AC 12:23
PROVIDERS: Anesthesiology; PCP Student in an Organized Health Care Education/Training Program; Referring Provider Student in an Organized Health Care Education/Training Program; Visit Provider Internal Medicine Gastroenterology
PROC: 0DJ08ZZ Inspection of Upper Intestinal Tract, Via Natural or Artificial Opening Endoscopic (ICD-10-PCS; CPT 43235; principal; 2024-10-31 13:10)
DX: K29.80 Duodenitis without bleeding (principal); K29.50 Unspecified chronic gastritis without bleeding; K31.89 Other diseases of stomach and duodenum; K90.821 Short bowel syndrome with colon in continuity; K58.0 Irritable bowel syndrome with diarrhea; Z87.891 Personal history of nicotine dependence; Z80.0 Family history of malignant neoplasm of digestive organs
CPT/HCPCS: 43239; 81025; 88305; 88342; A4216; J2405

== ENCOUNTER → 2024-11-22 | Outpatient (CLI) | payer OTHER, SELFPAY ==
--- NOTE | 2024-11-22 16:46 | RAD_ITS ---
PROCEDURE: ABDOMEN SINGLE VIEW REASON FOR EXAM: Capsule endoscopy TECHNIQUE: Two views of the abdomen were obtained. COMPARISON: None FINDINGS: Bowel gas pattern is normal. No evidence of bowel obstruction. Mild stool burden within the left colon. 2 large gallstones are demonstrated. The bones are unremarkable. RAD/Abdomen Single View IMPRESSION: Mild stool burden within the left colon. Cholelithiasis. Reading Location: [facility]
== END | disposition home or self-care (01) ==
LOC: RAD 16:45
PROVIDERS: PCP Student in an Organized Health Care Education/Training Program; Referring Provider Student in an Organized Health Care Education/Training Program; Visit Provider Student in an Organized Health Care Education/Training Program
DX: K58.0 Irritable bowel syndrome with diarrhea (principal)
CPT/HCPCS: 74018

== ENCOUNTER → 2024-12-01 | Outpatient (CLI) | payer OTHER, SELFPAY ==
--- NOTE | 2024-12-01 11:18 | RAD_ITS ---
EXAM: XR Abdomen, 1 View CLINICAL INDICATION: RULE OUT RETAINED CAPSULE IN COLON TECHNIQUE: Frontal supine view of the abdomen/pelvis. COMPARISON: No relevant prior studies available. FINDINGS: GASTROINTESTINAL TRACT: Unremarkable. No dilation. BONES/JOINTS: Unremarkable. No acute fracture. SOFT TISSUES: Circular foreign body projects over the right upper abdominal quadrant. RAD/Abdomen Single View IMPRESSION: Circular foreign body projects over the right upper abdominal quadrant. Reading Location[facility]
== END | disposition home or self-care (01) ==
LOC: RAD 11:11
PROVIDERS: PCP Student in an Organized Health Care Education/Training Program; Referring Provider Internal Medicine Gastroenterology; Visit Provider Internal Medicine Gastroenterology
DX: K58.0 Irritable bowel syndrome with diarrhea (principal)
CPT/HCPCS: 74018

== ENCOUNTER → 2024-12-02 | Outpatient (CLI) | payer OTHER, SELFPAY ==
--- NOTE | 2024-12-02 10:31 | CT_ITS ---
PROCEDURE: ABDOMEN/PELVIS WITH CONTRAST (procedure code [id number]), 12/02/2024 REASON FOR EXAM: S/P CAPSULE ENDOSCOPY RULE OUT FOREIGN BODY TECHNIQUE: CT abdomen and pelvis was performed with IV contrast. Multiplanar reformats were generated. PO Gastrografin also administered. IV CONTRAST: 75 mL Isovue-300 COMPARISON: 10/05/2024; images only are available for review, the report is not available at the time of dictation. FINDINGS: Note that the exam is slightly limited by late arterial phase of contrast timing with opacification of the portal vein but unopacified hepatic veins. Lung bases: Granuloma in the right lung base. Mild atelectasis/scarring.. Liver: Unremarkable. Spleen: Unremarkable. Gallbladder: Cholelithiasis. Pancreas: Unremarkable. Adrenals: Unremarkable. Kidneys: Difficult to trace portions of the ureters. No hydronephrosis or definite ureteral calculus. Bowel: No convincing evidence of obstruction. No convincing inflammation. Sacculation along left lower quadrant small bowel loops noted, most evident on the coronal, similar to prior. Contrast opacifies small bowel loops and reaches the level of the sigmoid. Likely right colectomy. No retained radiopaque foreign bodies are identified, allowing for the presence of postive PO contrast. Lymph nodes: Unremarkable. Vasculature: Unremarkable. Peritoneum: Unremarkable. Bladder: Trace stranding in the extraperitoneal space of Retzius adjacent to the bladder anteriorly on the right. Reproductive Organs: Tampon. 2.7 cm left ovarian lesion measures above simple fluid density and demonstrates questioned faint peripheral enhancement, possible hemorrhagic cyst or hemorrhagic corpus luteal cyst. Additional indeterminate 1.6 cm left ovarian lesion also present. These are not well evaluated by CT. Body Wall: Unremarkable. Bones: Minimal lower thoracic spondylosis. CT/Abdomen/Pelvis WITH Contrast IMPRESSION: 1. No retained radiopaque foreign bodies are identified, allowing for the prese nce of postive PO contrast which slightly limits sensitivity. 2. Question minimal stranding along the bladder. Correlate for clinical eviden ce of very mild cystitis. 3. Recommend nonurgent pelvic ultrasound for left adnexal/ovarian findings inco mpletely characterized by CT. 4. Additional description as above. Reading Location: [id number]
== END | disposition home or self-care (01) ==
PROVIDERS: PCP Student in an Organized Health Care Education/Training Program; Referring Provider Internal Medicine Gastroenterology; Visit Provider Internal Medicine Gastroenterology
DX: K58.0 Irritable bowel syndrome with diarrhea (principal)
CPT/HCPCS: 74177; Q9967; A4216

== ENCOUNTER → 2024-12-15 | Outpatient (CLI) | payer OTHER, SELFPAY ==
[2024-12-15 12:09] LABS: Absolute Lymphocyte Count 2.64 X10^3/uL (0.83-4.51); Absolute Neutrophil Count 3.8 X10^3/uL (2.0-7.7); Basophil# 0.04 X10^3/uL; Basophil% 0.6 % (0-1); Eosinophil# 0.14 X10^3/uL; Hematocrit 40.2 % (37-47); Hemoglobin 14.2 g/dL (12.0-15.0); Lymphocyte # 2.64 X10^3/ul (0.83-4.51); Lymphocyte % 37.9 % (19-41); Mean Corp Hgb Conc 35.3 g/dL (32-36); Mean Corpuscular Hgb 32.6 pg (27.0-32.0); Mean Corpuscular Volume 92.4 fL (81-99); Mean Platelet Vol. 10.1 fl (6.2-12.0); Monocyte# 0.35 X10^3/uL; NRBC Flagged by Analyzer 0 % (0-5); Neutrophil # 3.77 X10^3/uL (2.7-7.7); Neutrophil % 54.1 % (47-70); Platelet Count 201 K/mm3 (150-450); RBC Distribution Width CV 11.2 % (11.6-14.6); RBC Distribution Width SD 38.1 fl (35.1-43.9); Red Blood Count 4.35 M/mm3 (4.2-5.4)
[2024-12-15 12:15] LABS: Erythrocyte Sedimentation Rate 1 mm/hr (0-30)
[2024-12-15 19:42] LABS: ALB/GLOB Ratio 1.9 RATIO (0.9-2.4); AST(SGOT) 16 U/L (<=31); Alanine Aminotransfer ALT/SGPT 15 U/L (<=34); Albumin, Serum 4.7 g/dL (3.5-5.0); Alkaline Phosphatase 47 U/L (35-104); Anion Gap 16 (5-15); BUN 6 mg/dL (4-19); BUN/Creat Ratio 7.7 RATIO (10-20); Calcium,Total 9.5 mg/dL (7.6-11.0); Carbon Dioxide 17.4 mmol/L (21.0-32.0); Chloride 107 mmol/L (98-108); Creatinine, Serum 0.77 mg/dL (0.70-1.20); EST Glomerular Filtration Rate 102 (>60); Globulin 2.5 g/dL (2.2-4.2); Glucose 82 mg/dL (70-99); Potassium 4.4 mmol/L (3.3-5.1); Protein, Total 7.2 g/dL (5.9-8.4); Sodium Level 140 mmol/L (133-145); Total Bilirubin 0.33 mg/dL (0.00-1.30)
[2024-12-15 20:06] LABS: CRP < 3.00 mg/L (0.0-3.0); Phosphorus 3.3 mg/dL (2.7-4.5)
== END | disposition home or self-care (01) ==
LOC: LAB 11:25
PROVIDERS: PCP Student in an Organized Health Care Education/Training Program; Referring Provider Internal Medicine Gastroenterology; Visit Provider Internal Medicine Gastroenterology
DX: K52.9 Noninfective gastroenteritis and colitis, unspecified (principal)
CPT/HCPCS: 36415; 80053; 82384; 83735; 84100; 85025; 85652; 86140

== ENCOUNTER → 2024-12-20 | Outpatient (CLI) | payer OTHER, SELFPAY ==
[2024-12-26 17:07] LABS: Dopamine, 24Ur 459 ug/24 hr (0-510); Dopamine, UR 153 ug/L (Undefined); Epinephrine, 24Ur 12 ug/24 hr (0-20); Epinephrine, Ur 4 ug/L (Undefined); Norepinephrine, 24Ur < 45 ug/24 hr (0-135); Norepinephrine, Ur < 15 ug/L (Undefined); VMA, 24UR 4.2 mg/24 hr (0.0-7.5); VMA, UR 1.4 mg/L (Undefined)
== END | disposition home or self-care (01) ==
LOC: LABSPEC 11:18
PROVIDERS: PCP Student in an Organized Health Care Education/Training Program; Referring Provider Internal Medicine Gastroenterology; Visit Provider Internal Medicine Gastroenterology
DX: K52.9 Noninfective gastroenteritis and colitis, unspecified (principal)
CPT/HCPCS: 82384; 84585

== ENCOUNTER → 2024-12-22 | Outpatient (CLI) | payer OTHER, SELFPAY ==
[2024-12-26 16:08] LABS: Calprotectin, Stool 12 ug/g (0-120); Fats, Neutral Normal (.); Fats, Total Normal (.)
[2024-12-28 11:08] LABS: 5-HIAA, 24UR 2.6 mg/24 hr (0.0-14.9); 5-HIAA, UR 1.3 mg/L (Undefined); H. PYLORI STOOL AG Negative (Negative); Pancreatic Elastase, Fecal > 800 (>200)
== END | disposition home or self-care (01) ==
LOC: LABSPEC 12:03
PROVIDERS: PCP Student in an Organized Health Care Education/Training Program; Referring Provider Internal Medicine Gastroenterology; Visit Provider Internal Medicine Gastroenterology
DX: K90.821 Short bowel syndrome with colon in continuity (principal); K52.9 Noninfective gastroenteritis and colitis, unspecified
CPT/HCPCS: 82653; 82705; 83497; 83630; 83993; 87177; 87209; 87329; 87338; 87493

== ENCOUNTER → 2024-12-30 | Outpatient (CLI) | payer OTHER, SELFPAY ==
--- NOTE | 2024-12-30 11:43 | RAD_ITS ---
EXAM: XR Abdomen, 1 View CLINICAL INDICATION: POSSIBLE RETAINED CAPSULE TECHNIQUE: Frontal supine view of the abdomen/pelvis. COMPARISON: XR Abdomen dated 12/01/2024 FINDINGS: GASTROINTESTINAL TRACT: Unremarkable. No dilation. BONES/JOINTS: Unremarkable. No acute fracture. OTHER FINDINGS: Oval opacity projects over the right upper abdomen. RAD/Abdomen Single View IMPRESSION: 1. Oval opacity projects over the right upper abdomen. 2. No significant change from the prior exam. Reading Location[facility]
== END | disposition home or self-care (01) ==
LOC: RAD 11:42
PROVIDERS: PCP Student in an Organized Health Care Education/Training Program; Referring Provider Internal Medicine Gastroenterology; Visit Provider Internal Medicine Gastroenterology
DX: K52.9 Noninfective gastroenteritis and colitis, unspecified (principal)
CPT/HCPCS: 74018